=== PATIENT | female | born 1930 | race Caucasian/White ===

== ENCOUNTER → 2016-07-05 | Outpatient (CLI) | payer OTHER ==
[~2016-07-05] MED LIST: ACET1TAB84 PO; ADVIN25050 INH; ANT25 PO; CALCCHW57 PO; CHOL1TAB42 PO; CYCL0.05 OP; CYCL0.052 OPB; DICL1.3D21 TOP; FLUT0.15 NAE; FURO-85 PO; GABA1CAP PO; HYZ/10015 PO; KETO2SHA TOP; MAGN400T6 PO; MECL1TAB40 PO; MONT1TAB3 PO; NXM/40 PO; ONDA4TAB65 PO; POLYSOL4 OPB; PRAM1TAB6 PO; SERT1TAB72 PO; TRIA3AER NAE; TRIA55SP NAE; [UNRECOGNIZED DRUG - OTHER] NAE
[2016-07-05 16:41] LABS: BASO % 0.3 %; BASO ABS # 0.02 K/uL (0-0.2); COMPLETE YES; EOS % 1.8 %; HEMATOCRIT 36.4 % (37-47); IG% 0.7 %; LYMPH % 21.6 %; LYMPH ABS # 1.53 K/uL (1.2-3.4); MEAN CORPUSCULAR HGB CONC 31.9 g/dl (32-36); MEAN PLATELET VOLUME 11.4 fL (7.4-10.4); MONO % 5.9 %; NEUT % 69.7 %; PLATELET COUNT 166 K/uL (130-400); WHITE BLOOD COUNT 7.08 K/uL (4.8-10.8)
[2016-07-05 16:56] LABS: ALT/SGPT 18 U/L (12-78); AST/SGOT 15 U/L (15-37); BLOOD UREA NITROGEN 30 mg/dl (7-18); BUN/CREATININE RATIO 16.4 (10-20); CALCIUM 9.1 mg/dl (8.5-10.1); CARBON DIOXIDE 31 mmol/L (21-32); CHLORIDE 102 mmol/L (98-107); GLUCOSE 94 mg/dl (70-99); POTASSIUM 4.1 mmol/L (3.5-5.1); SODIUM 142 mmol/L (136-145)
[2016-07-05 17:03] LABS: ALB/GLOB RATIO 1.1 (0.9-2); ALKALINE PHOSPHATASE 95 U/L (45-117); C-REACTIVE PROTEIN 1.23 mg/dl (0-0.29); CHOLESTEROL 185 mg/dl (0-200); CHOLESTEROL/HDL RATIO 3.8; HDL CHOLESTEROL 49 mg/dl; LDL CHOLESTEROL CALCULATED 79 mg/dl; TRIGLYCERIDES 283 mg/dl (0-150); VERY LOW DENSITY LIPOPROT CALC 57 mg/dl
--- NOTE | 2016-07-09 13:03 | CODING QUERY MEDICAL NECESSITY ---
SUPPORTING DIAGNOSIS NEEDED Dr. George, A supporting diagnosis is required for the test/procedure performed on this patient in order for us to be reimbursed by the patient's insurance. Please provide a supporting diagnosis for the following test/procedure listed below next to the test name along with your signature. *If there is no additional diagnosis for this patient that would support the following test/procedure please document that below next to the test/procedure. Test(s)/Procedure(s) that require a supporting diagnosis: * ([id number]) B12 VITAMIN LEVEL DIAGNOSIS: DATE OF SERVICE: 07/05/16 Provider Signature: Date: Thank you [facility] Information Management Once completed, please kindly fax back to [phone] For questions please call [phone]
== END | disposition home or self-care (01) ==
LOC: C.LAB1850 15:18
PROVIDERS: ATTEND Internal Medicine
DX: R51 Headache (principal); I12.9 Hypertensive chronic kidney disease with stage 1 through stage 4 chronic kidney disease, or unspecified chronic kidney disease; N18.3 Chronic kidney disease, stage 3 (moderate); G62.9 Polyneuropathy, unspecified

== ENCOUNTER 2016-07-26 11:43 | Emergency (ER) | payer OTHER ==
[~2016-07-26 11:43] MED LIST changes: -ANT25 PO; -CYCL0.052 OPB; -FLUT0.15 NAE; -KETO2SHA TOP; -TRIA55SP NAE
[2016-07-26 11:54] VITALS: Ht 163.8 cm
[2016-07-26] MEDS ORDERED: SODIUM CHLORIDE 0.9% 1000ML 1,000 ML IV STA (13:09)
[2016-07-26] MEDS ORDERED: SODIUM CHLORIDE 0.9% 1000ML 250 ML IV STA (13:09)
[2016-07-26] MEDS ORDERED: MECLIZINE HCL 25 MG TAB PO STA (13:14)
[2016-07-26] MEDS ORDERED: CYCL0.052 OPB (13:42)
[2016-07-26] MEDS ORDERED: TRIA55SP NAE (13:42)
[2016-07-26 14:07] LABS: BASO % 0.2 %; BASO ABS # 0.02 K/uL (0-0.2); COMPLETE YES; EOS % 0.2 %; HEMATOCRIT 39.9 % (37-47); IG% 2.3 %; LYMPH % 11.9 %; LYMPH ABS # 1.42 K/uL (1.2-3.4); MEAN CELL VOLUME 91.3 fL (80-100); MEAN CORPUSCULAR HEMOGLOBIN 29.3 pg (25-34); MEAN CORPUSCULAR HGB CONC 32.1 g/dl (32-36); MEAN PLATELET VOLUME 11.3 fL (7.4-10.4); MONO % 3.1 %; NEUT % 82.3 %; PLATELET COUNT 194 K/uL (130-400); RED BLOOD COUNT 4.37 M/uL (4.2-5.4); WHITE BLOOD COUNT 11.94 K/uL (4.8-10.8)
--- NOTE | 2016-07-26 14:17 | DIAGNOSTIC IMAGING REPORT ---
CT OF THE HEAD WITHOUT CONTRAST CLINICAL HISTORY: Persistent frontal headache. COMPARISON STUDY: Head CT December 23, 2014. CT DOSE: 601.98 mGy.cm TECHNIQUE: Helical axial images of the head were obtained without IV contrast. Automated exposure control was utilized for the study. FINDINGS: No acute intracranial hemorrhage, midline shift or mass effect is present. Ventricular system is normal. Basilar cisterns are patent. There are no extra-axial collections. There are no findings to suggest acute dural sinus thrombosis or acute territorial infarct. White matter hypodensities are unchanged and suggest small vessel disease. There is no calvarial fracture. A small amount of fluid is noted within the left mastoid air cells. This is unchanged. There is minimal mucosal thickening of the sinuses. IMPRESSION: No acute intracranial findings. Electronically signed by: Chapin Rosales M.D. 07/26/2016 2:16 PM Dictated Date/Time: 07/26/2016 2:13 PM
[2016-07-26 14:20] LABS: ALT/SGPT 14 U/L (12-78); BLOOD UREA NITROGEN 37 mg/dl (7-18); BUN/CREATININE RATIO 21.6 (10-20); CALCIUM 9.6 mg/dl (8.5-10.1); CARBON DIOXIDE 30 mmol/L (21-32); CHLORIDE 103 mmol/L (98-107); GLUCOSE 113 mg/dl (70-99); POTASSIUM 4.5 mmol/L (3.5-5.1); SODIUM 143 mmol/L (136-145)
[2016-07-26 14:23] LABS: ALKALINE PHOSPHATASE 89 U/L (45-117); AST/SGOT 12 U/L (15-37)
[2016-07-26] MEDS ORDERED: ACETAMINOPHEN 325 MG TAB PO STA (14:51)
--- NOTE | 2016-07-26 16:25 | EMERGENCY ROOM VISIT NOTE ---
History Report prepared by Keri: Ksenia Ordonez Under the Supervision of: Dr. Lane Jenkins M.D. First contact with patient: 13:04 Chief Complaint: HEADACHE Stated Complaint: SEVERE RICHARDSON, NAUSEA History of Present Illness The patient is a 86 year old female who presents to the Emergency Room with complaints of a worsening intermittent headache that started about a couple months ago. The patient took Meclizine this morning, but it did not offer her much relief. She adds that she typically needs to take two in order to get any relief. The patient takes Tylenol and occasionally Excedrin, but they have not been relieving her headache. She is unsure of if anything makes the headache better or worse. The headache is sometimes worse with movement. She is also experiencing dizziness, like the room is spinning, along with nausea. The patient was supposed to see Dr. Gallo - Neurologist today, but they told her to come into the ED to get a CT scan done prior to her appointment this afternoon. The patient has received blood work for the headaches, but she has never had any imaging done of her head. She denies any recent falls along with hitting her head recently. The patient denies fevers and any problems speaking or swallowing. She is also experiencing pain in the back of her eyes and generalized weakness with the headache. The patient saw her eye doctor and they were suspicious of cluster headaches. The patient experienced headaches when she was younger. 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 Source of History: patient, spouse/significant other Onset: a couple months ago Position: head Quality: other (headache) Timing: intermittent, worsening Modifying Factors (Worsening): movement (sometimes) Modifying Factors (Relieving): other (none) Associated Symptoms: + nausea, + weakness (generalized), No fevers Note: dizziness, no problems speaking or swallowing Review of Systems See HPI for pertinent positives & negatives. A total of 10 systems reviewed and were otherwise negative. Past Medical & Surgical Medical Problems: (1) Appendectomy (2) Cataract (3) Depression (4) Dizziness (5) History of - hypertension (6) Hysterectomy (7) Osteoporosis (8) Vertigo Old medical records were reviewed. Nurse's notes were reviewed and I agree with. Family History No pertinent family history Social History Smoking Status: Never Smoker Drug Use: none Marital Status: Housing Status: lives alone Occupation Status: retired Current/Historical Medications Scheduled Acetaminophen (Tylenol Arthritis Ext Rel), 650 MG PO QID Calcium Carbonate-Vitamin D W/ (Calcium 1200), 1 DOSE PO DAILY Cholecalciferol (Vitamin D), 5,000 UNITS PO DAILY Cyclosporine (Ophth) (Restasis), 1 DROP OP BID Diclofenac Epolamine (Flector), 1 PATCH TOP Q12H Esomeprazole Magnesium (Nexium), 40 MG PO DAILY Furosemide (Lasix), 20 MG PO DAILY Gabapentin (Neurontin), 200 MG PO QAM Gabapentin (Neurontin), 300 MG PO QPM Hctz/Losartan (Hyzaar 25MG/100MG), 1 TAB PO QAM Magnesium Oxide (Mag-Ox), 400 MG PO DAILY Montelukast Sodium (Singulair), 10 MG PO DAILY Pramipexole Dihydrochloride (Pramipexole Dihydrochlori), 2 TAB PO HS Sertraline Hcl (Zoloft), 25 MG PO DAILY [4-N-1], 2 SPRAYS MARTY prn Scheduled PRN Fluticasone Prop/Salmeterol (Advair Diskus 250-50 Mcg/Dose), 1 PUFF INH BID PRN for SOB/Wheezing Meclizine Hcl (Meclizine Hcl), 25 MG PO TID PRN for Dizziness or Vertigo Ondansetron Hcl (Zofran), 1-2 TAB PO Q6 PRN for Nausea or Vomiting Polyethylene Glycol-Propylene (Systane), 1 DROP OPB BID PRN for PRN Triamcinolone Acetonide (Nasal (Cvs Nasal Allergy Capulin), 2 SPRAYS MARTY DAILY PRN for Nasal Congestion Allergies Coded Allergies: Levofloxacin (Verified Allergy, Intermediate, red painful skin,itching, burning, 07/26/16) Amoxicillin (Verified Allergy, Unknown, G I UPSET, 07/26/16) Aspirin (Verified Allergy, Unknown, UNKNOWN, 07/26/16) Cefdinir (Verified Allergy, Unknown, UNKNOWN, 07/26/16) Cephalosporins (Verified Allergy, Unknown, G I UPSET, 07/26/16) Iodine (Verified Allergy, Unknown, RASH, 07/26/16) Penicillins (Verified Allergy, Unknown, 07/26/16) Sulfa Drugs (Verified Allergy, Unknown, G I UPSET, 07/26/16) Venlafaxine (Verified Allergy, Unknown, UNKNOWN, 07/26/16) Codeine (Verified Adverse Reaction, Mild, GI UPSET, 07/26/16) Tapentadol (Verified Adverse Reaction, Unknown, "drunk as a hoot owl", ) pt/gmg Physical Exam Vital Signs Date Time Temp Pulse Resp B/P Pulse Ox O2 Delivery O2 Flow Rate FiO2 07/26/16 17:12 36.9 77 18 170/80 98 07/26/16 17:11 77 18 170/80 98 Room Air 07/26/16 13:58 78 175/89 98 Room Air 07/26/16 13:56 86 175/89 07/26/16 11:54 36.9 87 18 187/77 97 Room Air Physical Exam General: Well developed well nourished non-ill appearing older female in no acute distress, breathing comfortably on room air. Normal speech HEENT: Normal cephalic atraumatic. Mildly tender in temples bilaterally. Pupils are equal round and reactive to light. Extraocular movements are intact. Oropharynx is pink with moist mucous membranes. No swelling of the mouth lips or tongue. Neck: Supple with a midline trachea. No meningeal signs or stiffness, no JVD or bruits. No Stridor. Chest: Clear to auscultation bilaterally. No wheezes or rhonchi. No increased work of breathing. Heart: regular rate and rhythm. Abdomen: Soft nontender, nondistended without rebound guarding or rigidity. Extremities: No cyanosis clubbing or edema. No calf tenderness or assymetry Spine/Back. Non tender to palpation. No CVA tenderness Skin: Good turgor without rashes. Neurologic exam: Cranial nerves two through 12 are intact. Motor and sensation are intact and symmetrical throughout. No tremor. [id number] intact. Medical Decision & Procedures ER Provider Diagnostic Interpretation: CT results as stated below per my review and radiologist interpretation: CT OF THE HEAD WITHOUT CONTRAST IMPRESSION: No acute intracranial findings. Electronically signed by: Chapin Rosales M.D. 07/26/2016 2:16 PM Dictated Date/Time: 07/26/2016 2:13 PM Laboratory Results 07/26/16 13:48 Red Blood Count 4.37, Mean Corpuscular Volume 91.3, Mean Corpuscular Hemoglobin 29.3, Mean Corpuscular Hemoglobin Concent 32.1, Mean Platelet Volume 11.3, Neutrophils (%) (Auto) 82.3, Lymphocytes (%) (Auto) 11.9, Monocytes (%) (Auto) 3.1, Eosinophils (%) (Auto) 0.2, Basophils (%) (Auto) 0.2, Neutrophils # (Auto) 9.84, Lymphocytes # (Auto) 1.42, Monocytes # (Auto) 0.37, Eosinophils # (Auto) 0.02, Basophils # (Auto) 0.02 07/26/16 13:48 Test 07/26/16 13:48 07/26/16 14:02 White Blood Count 11.94 K/uL (4.8-10.8) Red Blood Count 4.37 M/uL (4.2-5.4) Hemoglobin 12.8 g/dL (12.0-16.0) Hematocrit 39.9 % (37-47) Mean Corpuscular Volume 91.3 fL (80-100) Mean Corpuscular Hemoglobin 29.3 pg (25-34) Mean Corpuscular Hemoglobin Concent 32.1 g/dl (32-36) Platelet Count 194 K/uL (130-400) Mean Platelet Volume 11.3 fL (7.4-10.4) Neutrophils (%) (Auto) 82.3 % Lymphocytes (%) (Auto) 11.9 % Monocytes (%) (Auto) 3.1 % Eosinophils (%) (Auto) 0.2 % Basophils (%) (Auto) 0.2 % Neutrophils # (Auto) 9.84 K/uL (1.4-6.5) Lymphocytes # (Auto) 1.42 K/uL (1.2-3.4) Monocytes # (Auto) 0.37 K/uL (0.11-0.59) Eosinophils # (Auto) 0.02 K/uL (0-0.5) Basophils # (Auto) 0.02 K/uL (0-0.2) RDW Standard Deviation 47.6 fL (36.4-46.3) RDW Coefficient of Variation 14.2 % (11.5-14.5) Immature Granulocyte % (Auto) 2.3 % Immature Granulocyte # (Auto) 0.27 K/uL (0.00-0.02) Erythrocyte Sedimentation Rate 34 mm/hr (0-21) Anion Gap 10.0 mmol/L (3-11) Estimated GFR () 31.1 Estimated GFR (Non- 26.8 BUN/Creatinine Ratio 21.6 (10-20) Calcium Level 9.6 mg/dl (8.5-10.1) Total Bilirubin 0.3 mg/dl (0.2-1) Direct Bilirubin < 0.1 mg/dl (0-0.2) Aspartate Amino Transf (AST/SGOT) 12 U/L (15-37) Alanine Aminotransferase (ALT/SGPT) 14 U/L (12-78) Alkaline Phosphatase 89 U/L (45-117) Total Protein 7.4 gm/dl (6.4-8.2) Albumin 3.8 gm/dl (3.4-5.0) Lipase 84 U/L (73-393) Bedside Troponin I 0.010 ng/ml (0-0.045) Laboratory studies as stated above per my review. Medications Administered Medications (Trade) Dose Ordered Sig/Clinton Route Start Time Stop Time Status Last Admin Dose Admin Sodium Chloride 250 ml @ 999 mls/hr Q16M STAT IV 07/26/16 13:09 07/26/16 13:24 DC 07/26/16 14:27 999 MLS/HR Sodium Chloride (Nss 1000ml) 1,000 ml @ 100 mls/hr Q10H STAT IV 07/26/16 13:09 07/26/16 17:30 DC 07/26/16 15:01 100 MLS/HR Meclizine HCl (Antivert Tab) 25 mg NOW STAT PO 07/26/16 13:14 07/26/16 13:15 DC 07/26/16 13:54 25 MG Acetaminophen (Tylenol Tab) 650 mg NOW STAT PO 07/26/16 14:51 07/26/16 14:52 DC 07/26/16 15:01 650 MG ECG Indication: weakness Rate (beats per minute): 80 Rhythm: normal sinus Findings: nonspecific-ST abn, no acute ischemic change Comparison ECG Date: 01/21/2016 Change: no significant change ED Course 1306: Past medical records reviewed. The patient was evaluated in room B10, and a complete history and physical examination were performed. 1309: Ordered Sodium Chloride 1000 ml @ 100 mls/hr IV, Sodium Chloride 250 ml @ 999 mls/hr IV 1314: Ordered Meclizine HCl 25 mg PO 1357: The patient is going to CT now. 1450: I reassessed the patient. She is resting comfortably. We are waiting for Dr. Gallo to call back. 1451: Ordered Tylenol Tab 650 mg PO 1454: I discussed the patient's case with Dr. Gallo - Neurology. He agreed with the treatment plan and said that they can't see her in the office today. He is going to try to get her into the office this week. 1558: Upon reevaluation, the patient is doing well. I discussed the results and treatment plan with her. She verbalized agreement of the treatment plan. The patient was discharged home. Medical Decision Differentials include, but are not limited to; vertigo, intracranial process, migraine, temporal arteritis, infection, electrolyte or metabolic abnormality. This patient comes in as described above. She was placed in room B 10. She has had headaches for several months now and and it seems even longer than that. It got a little bit worse today, she's had some dizziness with it she's had no fever chills. She has no strokelike symptoms -no difficulty speaking or swallowing or numbness or weakness. She had an appointment with Dr. Gallo who recommended she come to the ER because she has not had a neuro imaging. She does have multiple allergies and sensitivities to medication .she can take meclizine which we gave her as well as NSAIDs and she seems comfortable.. She does not appear to any distress CAT scan of her head is unremarkable she was mild to moderately hypertensive but I do not gets acutely causing her symptoms. She has nothing to suggest infection or acute electrode or metabolic abnormalities. Her sedimentation rate is mildly elevated, I did discuss with Dr. Gallo and she apparently tends to run chronically mildly elevated. She may ultimately need this further looked into although I do not think temporal arteritis is likely at this point. She's had a recent eye exam and her tipple supervisor who did not think there is an eye cause for this. Dr. Gallo's office and try to get her rescheduled this week. The patient can continue her meds and return if she has fever chills, numbness weakness ,worsened symptoms, any new problems or concerns. She was happy with plan and discharged home with her son driving Consults Time Called: 1450 Consulting Physician: Dr. Gallo - Neurology Returned Call: [phone] I discussed the patient's case with Dr. Gallo - Neurology. He agreed with the treatment plan and said that they can't see her in the office today. He is going to try to get her into the office this week. Impression Primary Impression: Headache Scribe Attestation The scribe's documentation has been prepared under my direction and personally reviewed by me in its entirety. I confirm that the note above accurately reflects all work, treatment, procedures, and medical decision making performed by me. Departure Information Dispostion Home / Self-Care Referrals No Doctor, Assigned (PCP) Forms HOME CARE DOCUMENTATION FORM, IMPORTANT VISIT INFORMATION Patient Instructions My [facility] Additional Instructions Rest. Drink plenty of fluids. Continue current medications for headache Follow-up with Dr. Gallo this week for recheck. Return if: Increasing pain, worsening symptoms, fever chills, any new problems or concerns. Problem Qualifiers Primary Impression: Headache Headache type: unspecified Headache chronicity pattern: unspecified pattern Intractability: not intractable Qualified Codes: R51 - Headache
[2016-07-26 17:12] VITALS: BP 170/80; PULSE 77; TEMP 36.9; O2SAT 98
== END 2016-07-26 17:13 | disposition home or self-care (01) ==
LOC: C.EDB 11:44
DX: R51 Headache (principal); F32.9 Major depressive disorder, single episode, unspecified; M81.0 Age-related osteoporosis without current pathological fracture; I10 Essential (primary) hypertension; Z79.899 Other long term (current) drug therapy

== ENCOUNTER → 2016-09-23 | Outpatient (CLI) | payer OTHER ==
[~2016-09-23] MED LIST changes: +ANT25 PO; -CYCL0.05 OP; +CYCL0.052 OPB; +DOXY100T17 PEG; +DULO-76 PO; +FLCP TOP; +FLUT0.15 NAE; +KETO2SHA TOP; +LIFI5DRO OPB; +NRN/300 PO; +SNG10 PO; -TRIA3AER NAE; +TRIA55SP NAE; +VERA240C2 PO; +VNTHFA/IN INH
[2016-09-23 10:36] LABS: URINE APPEARANCE CLEAR (CLEAR); URINE BILIRUBIN NEG (NEG); URINE COLOR YELLOW; URINE NITRITE NEG (NEG); URINE PH 6.5 (4.5-7.5); URINE SPECIFIC GRAVITY 1.009 (1.000-1.030); UROBILINOGEN NEG (NEG)
[2016-09-23 10:46] LABS: MANUAL MICROSCOPIC REQUIRED? NO; REVIEW REQ? NO
== END | disposition home or self-care (01) ==
LOC: C.LAB1850 08:57
PROVIDERS: ATTEND Internal Medicine
DX: R39.9 Unspecified symptoms and signs involving the genitourinary system (principal)

== ENCOUNTER → 2016-10-19 | Outpatient (CLI) | payer OTHER ==
--- NOTE | 2016-10-19 16:04 | MAMMOGRAPHY REPORT ---
BILATERAL DIGITAL SCREENING MAMMOGRAM TOMOSYNTHESIS WITH CAD: 10/19/2016 CLINICAL HISTORY: Asymptomatic. Personal history of breast cancer. TECHNIQUE: Breast tomosynthesis in addition to standard 2D mammography was performed. Current study was also evaluated with a Computer Aided Detection (CAD) system. COMPARISON: Comparison is made to exams dated: 04/12/2016 mammogram, 10/08/2015 mammogram, 06/26/2014 mammogram, 06/14/2013 mammogram, 06/12/2012 mammogram, and 06/02/2011 mammogram - [facility]. BREAST COMPOSITION: The tissue of both breasts is almost entirely fatty. FINDINGS: There are stable post-therapeutic changes within the right breast. A few benign-appearing calcifications in the right breast. Stable metallic biopsy marker in the left breast. Mild vascul ar calcification bilaterally. No new suspicious mass, architectural distortion or cluster of microc alcifications is seen. IMPRESSION: ACR BI-RADS CATEGORY 1: NEGATIVE There is no mammographic evidence of malignancy. A 1 year screening mammogram is recommended. The p atient will receive written notification of the results. Approximately 10% of breast cancers are not detected with mammography. A negative mammographic repor t should not delay biopsy if a clinically suggestive mass is present. Kindra Brown M.D. ay/:10/19/2016 15:17:59 Body Technician: Laura HUI)(M), [facility] letter sent: Normal 1/2 BI-RADS Code: ACR BI-RADS Category 1: Negative
== END | disposition home or self-care (01) ==
LOC: C.MAMM 12:11
PROVIDERS: ATTEND Internal Medicine Hematology & Oncology
DX: Z12.31 Encounter for screening mammogram for malignant neoplasm of breast (principal)

== ENCOUNTER 2016-11-04 12:22 | Emergency (ER) | payer OTHER ==
[~2016-11-04] VITALS: Ht 162.6 cm; Wt 96.0 kg
[~2016-11-04 12:22] MED LIST changes: -ANT25 PO; -DOXY100T17 PEG; -DULO-76 PO; -FLCP TOP; -FLUT0.15 NAE; -KETO2SHA TOP; -LIFI5DRO OPB; -NRN/300 PO; -SNG10 PO; -VERA240C2 PO; -VNTHFA/IN INH
[2016-11-04 12:30] VITALS: TEMP 36.6; Ht 162.6 cm; Wt 96.0 kg
[2016-11-04] MEDS ORDERED: ONDANSETRON INJ 2 MG/ML 2 ML VIAL IV STA (13:08)
[2016-11-04] MEDS ORDERED: MoRPHine SULFATE 4 MG/ML 1 ML CARP\\VIAL IV STA (13:08)
[2016-11-04] MEDS ORDERED: ANT25 PO (13:18)
[2016-11-04] MEDS ORDERED: FLUT0.15 NAE (13:18)
[2016-11-04] MEDS ORDERED: KETO2SHA TOP (13:18)
[2016-11-04 13:55] LABS: BASO % 0.1 %; BASO ABS # 0.01 K/uL (0-0.2); COMPLETE YES; EOS % 1.4 %; HEMATOCRIT 36.8 % (37-47); IG% 0.5 %; LYMPH % 16.9 %; LYMPH ABS # 1.31 K/uL (1.2-3.4); MEAN CELL VOLUME 88.9 fL (80-100); MEAN CORPUSCULAR HEMOGLOBIN 28.7 pg (25-34); MEAN CORPUSCULAR HGB CONC 32.3 g/dl (32-36); MEAN PLATELET VOLUME 11.1 fL (7.4-10.4); NEUT % 76.1 %; PLATELET COUNT 189 K/uL (130-400); RED BLOOD COUNT 4.14 M/uL (4.2-5.4); WHITE BLOOD COUNT 7.73 K/uL (4.8-10.8)
--- NOTE | 2016-11-04 14:09 | DIAGNOSTIC IMAGING REPORT ---
SINGLE VIEW CHEST CLINICAL HISTORY: Lower extremity edema. FINDINGS: An AP, portable, upright chest radiograph is compared to study dated 01/21/2016 and correlated with chest CT dated 09/03/2015. The examination is degraded by portable technique and apical lordotic positioning. The heart is mildly enlarged. The pulmonary vasculature is noncongested. Chronic interstitial thickening is unchanged and there is mild elevation of the right hemidiaphragm. No airspace consolidation, large pleural effusion, or pneumothorax is seen. The skeletal structures are osteopenic. The bony thorax is grossly intact. Surgical clips are noted in the right breast. IMPRESSION: Mild cardiac enlargement with no acute cardiopulmonary abnormality. Electronically signed by: Porfirio Calderón M.D. 11/04/2016 2:08 PM Dictated Date/Time: 11/04/2016 2:07 PM
[2016-11-04 14:17] LABS: BUN/CREATININE RATIO 14.9 (10-20); CALCIUM 8.8 mg/dl (8.5-10.1); CREATININE 1.9 mg/dl (0.60-1.20)
--- NOTE | 2016-11-04 14:23 | DIAGNOSTIC IMAGING REPORT ---
FLUOROSCOPIC IMAGES OF THE LUMBAR SPINE CLINICAL HISTORY: Lower back pain radiating into the lower extremities. COMPARISON: Lumbar spine radiographs August 07, 2013. FLUOROSCOPY TIME: FINDINGS: Mild curvature of the lumbar spine is noted with slight retrolisthesis of L3 on L4 and anterolisthesis of L5 on S1. This is unchanged since exam of August 07, 2013. There is moderate multilevel degenerative disc disease and facet arthrosis. No fracture or suspicious lesion is identified by radiography. IMPRESSION: 1. No acute lumbar spine fracture or subluxation. 2. Moderate multilevel degenerative disc disease and facet arthrosis of the lumbar spine. 3. No change in mild retrolisthesis of L3 on L4 and anterolisthesis of L5 on S1. Electronically signed by: Chapin Rosales M.D. 11/04/2016 2:22 PM Dictated Date/Time: 11/04/2016 2:20 PM
--- NOTE | 2016-11-04 14:52 | DIAGNOSTIC IMAGING REPORT ---
ULTRASOUND BILATERAL LOWER EXTREMITY VENOUS CLINICAL HISTORY: Leg swelling. COMPARISON STUDY: Bilateral lower extremity venous ultrasound dated 01/21/2016. TECHNIQUE: Real-time, grayscale, and color Doppler sonography of the deep veins of the right and left lower extremity was performed from the inguinal crease to the calf. Compression and augmentation were utilized. FINDINGS: There is no sonographic evidence of deep venous thrombosis identified in the right or left lower extremity. The common femoral, superficial femoral, and popliteal veins are patent and normally compressible bilaterally. The greater saphenous vein and the profunda femoris vein at the junction with the common femoral vein are clear in both legs. The visualized calf veins are patent bilaterally. IMPRESSION: There is no sonographic evidence of deep venous thrombosis identified in the right or left lower extremity. Electronically signed by: Porfirio Calderón M.D. 11/04/2016 2:51 PM Dictated Date/Time: 11/04/2016 2:50 PM
[2016-11-04 15:10] VITALS: BP 152/82; PULSE 77; O2SAT 96
[2016-11-04] MEDS ORDERED: POTASSIUM CHLORIDE 10 MEQ TABCR PO STA (15:18)
--- NOTE | 2016-11-04 17:35 | EMERGENCY ROOM VISIT NOTE ---
History Report prepared by Keri: Rula Botello Under the Supervision of: Dr. Delmar Toribio D.O. First contact with patient: 12:42 Chief Complaint: BACK PAIN Stated Complaint: BACK AND LEG PAIN History of Present Illness The patient is a 86 year old female who presents to the Emergency Room with complaints of worsening lower back pain and left leg pain beginning [employer]. The patient has chronic swelling in her legs. 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 The nurse noticed that the right leg appeared to be more swollen today. She was concerned that the patient might have a blood clot in the right lower leg. The patient has a history of spinal stenosis and has chronic pain in her back that has been going on per years, per son and left lower extremity. The patient states that today her back pain is worse than usual. She also reports pain in her left hip and leg, as well as pain in her right shoulder. She has been taking Cipro for the past 3 days for a UTI. The patient states that she is still experiencing some urinary symptoms, but they are improving since starting the antibiotic. The patient denies abdominal pain, nausea, vomiting, and diarrhea. She has been taking Tylenol for her pain. She called her PCP today with her symptoms and they advised her to come to the ED for further evaluation. The patient rates her current pain as an 8/10 in severity. Source of History: patient, family (son) Onset: [employer] Position: back, leg (right) Symptom Intensity: 8/10 Timing: worsening Modifying Factors (Relieving): tylenol Associated Symptoms: + urinary symptoms, No abdominal pain, No diarrhea, No nausea, No vomiting Review of Systems See HPI for pertinent positives & negatives. A total of 10 systems reviewed and were otherwise negative. Past Medical & Surgical Medical Problems: (1) Appendectomy (2) Cataract (3) Depression (4) Dizziness (5) History of - hypertension (6) Hysterectomy (7) Osteoporosis (8) Vertigo Family History No pertinent family history Social History Smoking Status: Never Smoker Drug Use: none Marital Status: Housing Status: lives alone Occupation Status: retired Current/Historical Medications Scheduled Acetaminophen (Tylenol Arthritis Ext Rel), 650 MG PO QID Cholecalciferol (Vitamin D), 5,000 UNITS PO DAILY Cyclosporine (Ophth) (Restasis), 1 DROP OPB BID Diclofenac Epolamine (Flector), 1 PATCH TOP Q12H Esomeprazole Magnesium (Nexium), 40 MG PO DAILY Fluticasone Propionate (Nasal) (Flonase Allergy Relief), 2 SPRAYS MARTY DAILY Furosemide (Lasix), 20 MG PO DAILY Gabapentin (Neurontin), 200 MG PO QAM Gabapentin (Neurontin), 300 MG PO QPM Hctz/Losartan (Hyzaar 25MG/100MG), 1 TAB PO QAM Ketoconazole (Topical) (Ketoconazole), 1 APPLN TOP UD Montelukast Sodium (Singulair), 10 MG PO DAILY Pramipexole Dihydrochloride (Pramipexole Dihydrochlori), 2 TAB PO HS Sertraline Hcl (Zoloft), 25 MG PO DAILY Scheduled PRN Fluticasone Prop/Salmeterol (Advair Diskus 250-50 Mcg/Dose), 1 PUFF INH BID PRN for SOB/Wheezing Meclizine HCl (Meclizine HCl), 2 MG PO TID PRN for Dizziness or Vertigo Polyethylene Glycol-Propylene (Systane), 1 DROP OPB BID PRN for PRN Allergies Coded Allergies: Levofloxacin (Verified Allergy, Intermediate, red painful skin,itching, burning, 07/26/16) Amoxicillin (Verified Allergy, Unknown, G I UPSET, 07/26/16) Aspirin (Verified Allergy, Unknown, UNKNOWN, 07/26/16) Cefdinir (Verified Allergy, Unknown, UNKNOWN, 07/26/16) Cephalosporins (Verified Allergy, Unknown, G I UPSET, 07/26/16) Iodine (Verified Allergy, Unknown, RASH, 07/26/16) Penicillins (Verified Allergy, Unknown, 07/26/16) Sulfa Drugs (Verified Allergy, Unknown, G I UPSET, 07/26/16) Venlafaxine (Verified Allergy, Unknown, UNKNOWN, 07/26/16) Codeine (Verified Adverse Reaction, Mild, GI UPSET, 07/26/16) Tapentadol (Verified Adverse Reaction, Unknown, "drunk as a hoot owl", ) pt/gmg Physical Exam Vital Signs Date Time Temp Pulse Resp B/P Pulse Ox O2 Delivery O2 Flow Rate FiO2 11/04/16 15:10 77 18 152/82 96 Room Air 11/04/16 13:25 74 11/04/16 12:30 36.6 93 20 135/63 91 Room Air Physical Exam GENERAL: alert, sitting up in bed chronically ill appearing, well nourished, no distress, non-toxic EYE EXAM: normal conjunctiva OROPHARYNX: no exudate, no erythema, lips, buccal mucosa, and tongue normal and mucous membranes are moist NECK: supple, no nuchal rigidity, no adenopathy, non-tender LUNGS: Clear to auscultation. Normal chest wall mechanics HEART: no murmurs, S1 normal and S2 normal ABDOMEN: abdomen soft, non-tender, normo-active bowel sounds, no masses, no rebound or guarding. BACK: Back is symmetrical on inspection and there is no deformity, acute reproducible tenderness in the lower lumbar spine and left gluteus. SKIN: no rashes and no bruising UPPER EXTREMITIES: Minimal pain with abduction of right shoulder greater than 90 degrees, FROM intact, no focal deficits. LOWER EXTREMITIES: Flexion/extension at the hips, knees, ankles, and EHL 5/5 bilaterally with mild pain on the left side. DP 2/4, gross sensation intact. Faint pitting edema bilaterally, calves equal bilaterally. NEURO EXAM: Normal sensorium, cranial nerves II-XII grossly intact, normal speech. Medical Decision & Procedures ER Provider Diagnostic Interpretation: Radiology results as stated below per my review and the radiologist's interpretation: ULTRASOUND BILATERAL LOWER EXTREMITY VENOUS CLINICAL HISTORY: Leg swelling. COMPARISON STUDY: Bilateral lower extremity venous ultrasound dated 01/21/2016. TECHNIQUE: Real-time, grayscale, and color Doppler sonography of the deep veins of the right and left lower extremity was performed from the inguinal crease to the calf. Compression and augmentation were utilized. FINDINGS: There is no sonographic evidence of deep venous thrombosis identified in the right or left lower extremity. The common femoral, superficial femoral, and popliteal veins are patent and normally compressible bilaterally. The greater saphenous vein and the profunda femoris vein at the junction with the common femoral vein are clear in both legs. The visualized calf veins are patent bilaterally. IMPRESSION: There is no sonographic evidence of deep venous thrombosis identified in the right or left lower extremity. Electronically signed by: Porfirio Calderón M.D. 11/04/2016 2:51 PM Dictated Date/Time: 11/04/2016 2:50 PM FLUOROSCOPIC IMAGES OF THE LUMBAR SPINE CLINICAL HISTORY: Lower back pain radiating into the lower extremities. COMPARISON: Lumbar spine radiographs August 07, 2013. FLUOROSCOPY TIME: FINDINGS: Mild curvature of the lumbar spine is noted with slight retrolisthesis of L3 on L4 and anterolisthesis of L5 on S1. This is unchanged since exam of August 07, 2013. There is moderate multilevel degenerative disc disease and facet arthrosis. No fracture or suspicious lesion is identified by radiography. IMPRESSION: 1. No acute lumbar spine fracture or subluxation. 2. Moderate multilevel degenerative disc disease and facet arthrosis of the lumbar spine. 3. No change in mild retrolisthesis of L3 on L4 and anterolisthesis of L5 on S1. Electronically signed by: Chapin Rosales M.D. 11/04/2016 2:22 PM Dictated Date/Time: 11/04/2016 2:20 PM SINGLE VIEW CHEST CLINICAL HISTORY: Lower extremity edema. FINDINGS: An AP, portable, upright chest radiograph is compared to study dated 01/21/2016 and correlated with chest CT dated 09/03/2015. The examination is degraded by portable technique and apical lordotic positioning. The heart is mildly enlarged. The pulmonary vasculature is noncongested. Chronic interstitial thickening is unchanged and there is mild elevation of the right hemidiaphragm. No airspace consolidation, large pleural effusion, or pneumothorax is seen. The skeletal structures are osteopenic. The bony thorax is grossly intact. Surgical clips are noted in the right breast. IMPRESSION: Mild cardiac enlargement with no acute cardiopulmonary abnormality. Electronically signed by: Porfirio Calderón M.D. 11/04/2016 2:08 PM Dictated Date/Time: 11/04/2016 2:07 PM Laboratory Results 11/04/16 13:30 Red Blood Count 4.14, Mean Corpuscular Volume 88.9, Mean Corpuscular Hemoglobin 28.7, Mean Corpuscular Hemoglobin Concent 32.3, Mean Platelet Volume 11.1, Neutrophils (%) (Auto) 76.1, Lymphocytes (%) (Auto) 16.9, Monocytes (%) (Auto) 5.0, Eosinophils (%) (Auto) 1.4, Basophils (%) (Auto) 0.1, Neutrophils # (Auto) 5.87, Lymphocytes # (Auto) 1.31, Monocytes # (Auto) 0.39, Eosinophils # (Auto) 0.11, Basophils # (Auto) 0.01 11/04/16 13:30 Test 11/04/16 13:30 White Blood Count 7.73 K/uL (4.8-10.8) Red Blood Count 4.14 M/uL (4.2-5.4) Hemoglobin 11.9 g/dL (12.0-16.0) Hematocrit 36.8 % (37-47) Mean Corpuscular Volume 88.9 fL (80-100) Mean Corpuscular Hemoglobin 28.7 pg (25-34) Mean Corpuscular Hemoglobin Concent 32.3 g/dl (32-36) Platelet Count 189 K/uL (130-400) Mean Platelet Volume 11.1 fL (7.4-10.4) Neutrophils (%) (Auto) 76.1 % Lymphocytes (%) (Auto) 16.9 % Monocytes (%) (Auto) 5.0 % Eosinophils (%) (Auto) 1.4 % Basophils (%) (Auto) 0.1 % Neutrophils # (Auto) 5.87 K/uL (1.4-6.5) Lymphocytes # (Auto) 1.31 K/uL (1.2-3.4) Monocytes # (Auto) 0.39 K/uL (0.11-0.59) Eosinophils # (Auto) 0.11 K/uL (0-0.5) Basophils # (Auto) 0.01 K/uL (0-0.2) RDW Standard Deviation 47.6 fL (36.4-46.3) RDW Coefficient of Variation 14.6 % (11.5-14.5) Immature Granulocyte % (Auto) 0.5 % Immature Granulocyte # (Auto) 0.04 K/uL (0.00-0.02) Anion Gap 7.0 mmol/L (3-11) Est Creatinine Clear Calc Drug Dose 23.9 ml/min Estimated GFR () 27.2 Estimated GFR (Non- 23.5 BUN/Creatinine Ratio 14.9 (10-20) Calcium Level 8.8 mg/dl (8.5-10.1) Total Bilirubin 0.3 mg/dl (0.2-1) Direct Bilirubin 0.1 mg/dl (0-0.2) Aspartate Amino Transf (AST/SGOT) 13 U/L (15-37) Alanine Aminotransferase (ALT/SGPT) 16 U/L (12-78) Alkaline Phosphatase 102 U/L (45-117) Pro-B-Type Natriuretic Peptide 143 pg/ml (0-1800) Total Protein 7.4 gm/dl (6.4-8.2) Albumin 3.8 gm/dl (3.4-5.0) Laboratory results per my review. Medications Administered Medications (Trade) Dose Ordered Sig/Clinton Route Start Time Stop Time Status Last Admin Dose Admin Potassium Chloride (Klor-Con M10) 40 meq NOW STAT PO 11/04/16 15:18 11/04/16 15:19 DC 11/04/16 15:28 40 MEQ ECG Indication: back/shoulder pain Rate (beats per minute): 73 Rhythm: normal sinus Findings: no ectopy, other (normal axis; poor baseline in inferior leads) Comparison ECG Date: 07/26/16 Change: no significant change ED Course ED COURSE: Vital signs were reviewed and showed normal vitals. The patients medical record was reviewed The above diagnostic studies were performed and reviewed. ED treatments and interventions as stated above. 1242: The patient was evaluated in room C11B. A complete history and physical examination was performed. 1308: Morphine sulfate 4 mg IV - pt refused, Zofran 4 mg IV - pt refused 1518: Klor-Con M10 40 meq PO 1519: Upon reevaluation, the patient is resting comfortably. I discussed my findings with the patient and she understands and agrees with the treatment plan. She declined any Oxy IR and states that her Ultram works well, it just makes her tired. Based on the patients age, coexisting illnesses, exam and lab findings the decision to treat as an outpatient was made. The patient remained stable while under my care. The patient appeared well at the time of discharge. Medical Decision Differential diagnoses includes but is not limited to lumbar radiculopathy, muscle strain, facture, cauda equina, mass, and disc herniation. Patient is an 86-year-old female who presents the ER for swelling in the right lower extremity along with pain in her left back radiating down her left leg which has been present for over 7 years. Pain is not significantly worsened off of her baseline. She is able to still able to walk with her walker which she has been using since 2009. No signs of cauda equina. No numbness in her groin. Duplex of the lower extremity showed no DVTs. CBC was unremarkable. BMP shows a creatinine 1.8 which is slightly increased from baseline of 1.7- 1.8. Potassium was repleted which was at 3.0 which I favor secondary to her Lasix. Patient declined any pain medications as she notes she takes her tramadol at home she has significant improvement but does make her feel a little loopy. Patient was discharged follow-up with her primary care doctor. Discussed with Pt concerning signs and symptoms to watch out for. Pt was instructed to follow up with their PCP and discussed with the patient their option to return to the ED at anytime for persistent or worsening symptoms. The appropriate anticipatory guidance and out-patient management, including indications for return to the emergency department, were explained at length to the patient and understood. Impression Primary Impression: Back pain Additional Impressions: Hypokalemia CKD (chronic kidney disease) Scribe Attestation The scribe's documentation has been prepared under my direction and personally reviewed by me in its entirety. I confirm that the note above accurately reflects all work, treatment, procedures, and medical decision making performed by me. Departure Information Dispostion Home / Self-Care Referrals RV. Marino MD (PCP) Forms HOME CARE DOCUMENTATION FORM, IMPORTANT VISIT INFORMATION Patient Instructions Back Pain - [facility], [facility] Additional Instructions Please follow up with your primary care doctor with in the next 24 hours. Any worsening of your symptoms, please return to the ED immediately. This includes fevers greater than 100.4, worsening back pain, numbness in your groin, numbness or weakness in your legs, inability to ambulate, or any other concerning signs or symptoms from your standpoint. Problem Qualifiers Primary Impression: Back pain Back pain location: low back pain Chronicity: chronic Back pain laterality : unspecified Sciatica presence: unspecified whether sciatica present Qualified Codes: M54.5 - Low back pain; G89.29 - Other chronic pain Additional Impressions: CKD (chronic kidney disease) Chronic kidney disease stage: unspecified stage Qualified Codes: N18.9 - Chronic kidney disease, unspecified
== END 2016-11-04 15:38 | disposition home or self-care (01) ==
LOC: C.EDB 12:28 → C.EDC 15:38
DX: M54.5 Low back pain (principal); E87.6 Hypokalemia; N18.9 Chronic kidney disease, unspecified; H26.9 Unspecified cataract; F32.9 Major depressive disorder, single episode, unspecified; I12.9 Hypertensive chronic kidney disease with stage 1 through stage 4 chronic kidney disease, or unspecified chronic kidney disease; M81.0 Age-related osteoporosis without current pathological fracture; Z79.899 Other long term (current) drug therapy; M79.604 Pain in right leg; M79.605 Pain in left leg; R60.0 Localized edema

== ENCOUNTER → 2016-12-17 | Outpatient (CLI) | payer OTHER ==
[~2016-12-17] MED LIST changes: +ANT25 PO; -CALCCHW57 PO; +FLUT0.15 NAE; +KETO2SHA TOP; -MECL1TAB40 PO; -ONDA4TAB65 PO; -TRIA55SP NAE; -[UNRECOGNIZED DRUG - OTHER] NAE
[2016-12-17 12:14] LABS: BASO % 0.2 %; BASO ABS # 0.02 K/uL (0-0.2); COMPLETE YES; EOS % 1.3 %; HEMATOCRIT 36.7 % (37-47); IG% 0.5 %; LYMPH % 19.5 %; MEAN CELL VOLUME 86.6 fL (80-100); MEAN CORPUSCULAR HEMOGLOBIN 28.3 pg (25-34); MEAN CORPUSCULAR HGB CONC 32.7 g/dl (32-36); MEAN PLATELET VOLUME 11.5 fL (7.4-10.4); MONO % 5.8 %; NEUT % 72.7 %; PLATELET COUNT 200 K/uL (130-400); RED BLOOD COUNT 4.24 M/uL (4.2-5.4); WHITE BLOOD COUNT 9.25 K/uL (4.8-10.8)
[2016-12-17 12:43] LABS: ALT/SGPT 16 U/L (12-78); BLOOD UREA NITROGEN 37 mg/dl (7-18); BUN/CREATININE RATIO 19.5 (10-20); CALCIUM 9.2 mg/dl (8.5-10.1); CARBON DIOXIDE 33 mmol/L (21-32); CHLORIDE 99 mmol/L (98-107); GLUCOSE 94 mg/dl (70-99); POTASSIUM 3.2 mmol/L (3.5-5.1); SODIUM 138 mmol/L (136-145)
[2016-12-17 12:46] LABS: ALKALINE PHOSPHATASE 94 U/L (45-117); AST/SGOT 13 U/L (15-37)
== END | disposition home or self-care (01) ==
LOC: C.LAB1850 11:20
PROVIDERS: ATTEND Internal Medicine
DX: N18.3 Chronic kidney disease, stage 3 (moderate) (principal); E55.9 Vitamin D deficiency, unspecified

== ENCOUNTER 2017-02-10 11:56 | Emergency (ER) | payer OTHER ==
[~2017-02-10] VITALS: Ht 163.8 cm; Wt 97.7 kg
[~2017-02-10 11:56] MED LIST changes: -MAGN400T6 PO
[2017-02-10 12:03] VITALS: TEMP 36.8; Ht 163.8 cm; Wt 97.7 kg
[2017-02-10 12:28] VITALS: O2SAT 95
[2017-02-10] MEDS ORDERED: OXYCODONE/ACETAMINOPHEN 5-325 TAB PO STA (12:35)
[2017-02-10] MEDS ORDERED: MAGN400T6 PO (13:09)
--- NOTE | 2017-02-10 13:16 | DIAGNOSTIC IMAGING REPORT ---
CHEST ONE VIEW PORTABLE CLINICAL HISTORY: Chest pain. Right shoulder pain. COMPARISON STUDY: Chest radiograph November 04, 2016. FINDINGS: Surgical clips within the right breast are incidentally noted. Lung volumes are normal. There is no pneumothorax or pleural effusion. There is no evidence of pulmonary edema. Mild enlargement of the cardiac silhouette is unchanged. No consolidation is identified to suggest pneumonia. The appearance of the chest is unchanged. IMPRESSION: No acute cardiopulmonary findings. No change in appearance of the chest. Electronically signed by: Chapin Rosales M.D. 02/10/2017 1:15 PM Dictated Date/Time: 02/10/2017 1:14 PM
--- NOTE | 2017-02-10 13:16 | DIAGNOSTIC IMAGING REPORT ---
RIGHT SHOULDER MIN 2 VIEWS ROUTINE CLINICAL HISTORY: 87 years-old Female presenting with right shoulder pain, chest pain. TECHNIQUE: Internal rotation, external rotation, and Grashey views of the right shoulder were obtained. COMPARISON: Comparison made to chest x-ray from 01/21/2016. FINDINGS: No subluxation of the humeral head. Glenohumeral and acromioclavicular joints congruent. Degenerative changes of the acromioclavicular joint noted. No acute fracture. Visualized portions of the right hemithorax are grossly normal. IMPRESSION: No acute osseous injury of the right shoulder. Degenerative changes of the acromioclavicular joint. Electronically signed by: Gary Forbes M.D. 02/10/2017 1:15 PM Dictated Date/Time: 02/10/2017 1:13 PM
--- NOTE | 2017-02-10 13:35 | EMERGENCY ROOM VISIT NOTE ---
History Report prepared by Keri: Rui Luis Under the Supervision of: Dr. Alek Huertas M.D. First contact with patient: 12:30 Chief Complaint: CHEST PAIN Stated Complaint: CHEST PAINS Nursing Triage Summary: patient c/o primarily right clavicular and shoulder pain, tenderness upon palpation, worsened with movement of arm. Per son, "its been going on for months, she's had it looked at a few times and they always say everything it is alright." History of Present Illness The patient is an 87 year old female who presents to the Emergency Room with complaints of worsening right sided chest pain for the past couple of months that feels sore. The patient states that she was here in the ED in October, and she was complaining of it back then, though it was much more mild back then. The patient states that she is having some pain with movement and pain into her neck and shoulder. The patient's son states that the patient uses a walker to walk, and it hurts while using it. The patient denies any falls, shortness of breath, nausea, vomiting, or cough. The patient has a history of spinal stenosis and she has edema in her leg which she is taking a water pill for. Additionally, the patient states that she has had shoulder surgery on both shoulders. Source of History: patient, family Onset: a few months ago Position: chest (right) Quality: other (sore) Timing: worsening Associated Symptoms: No cough, No SOB, No nausea, No vomiting Note: Associated symptoms: neck pain, shoulder pain Review of Systems See HPI for pertinent positives and negatives. A total of ten systems were reviewed and were otherwise negative. Past Medical & Surgical Medical Problems: (1) Appendectomy (2) Cataract (3) Depression (4) Dizziness (5) History of - hypertension (6) Hysterectomy (7) Osteoporosis (8) Vertigo Family History No pertinent family history Social History Smoking Status: Never Smoker Drug Use: none Marital Status: Housing Status: lives alone Occupation Status: retired Current/Historical Medications Scheduled Acetaminophen (Tylenol Arthritis Ext Rel), 650 MG PO QID Cyclosporine (Ophth) (Restasis), 1 DROP OPB BID Esomeprazole Magnesium (Nexium), 40 MG PO DAILY Fluticasone Propionate (Nasal) (Flonase Allergy Relief), 2 SPRAYS MARTY DAILY Gabapentin (Neurontin), 200 MG PO QAM Gabapentin (Neurontin), 300 MG PO QPM Hctz/Losartan (Hyzaar 25MG/100MG), 1 TAB PO QAM Sertraline Hcl (Zoloft), 25 MG PO DAILY Scheduled PRN Fluticasone Prop/Salmeterol (Advair Diskus 250-50 Mcg/Dose), 1 PUFF INH BID PRN for SOB/Wheezing Meclizine HCl (Meclizine HCl), 2 MG PO TID PRN for Dizziness or Vertigo Polyethylene Glycol-Propylene (Systane), 1 DROP OPB BID PRN for PRN Miscellaneous Medications Magnesium Oxide (Mag-Ox), 400 MG PO Allergies Coded Allergies: Levofloxacin (Verified Allergy, Intermediate, red painful skin,itching, burning, 07/26/16) Amoxicillin (Verified Allergy, Unknown, G I UPSET, 07/26/16) Aspirin (Verified Allergy, Unknown, UNKNOWN, 07/26/16) Cefdinir (Verified Allergy, Unknown, UNKNOWN, 07/26/16) Cephalosporins (Verified Allergy, Unknown, G I UPSET, 07/26/16) Iodine (Verified Allergy, Unknown, RASH, 07/26/16) Penicillins (Verified Allergy, Unknown, 07/26/16) Sulfa Drugs (Verified Allergy, Unknown, G I UPSET, 07/26/16) Venlafaxine (Verified Allergy, Unknown, UNKNOWN, 07/26/16) Codeine (Verified Adverse Reaction, Mild, GI UPSET, 07/26/16) Tapentadol (Verified Adverse Reaction, Unknown, "drunk as a hoot owl", ) pt/gmg Physical Exam Vital Signs Date Time Temp Pulse Resp B/P (MAP) Pulse Ox O2 Delivery O2 Flow Rate FiO2 02/10/17 18:18 70 16 104/60 98 Nasal Cannula 2.0 02/10/17 17:21 79 20 113/59 98 Nasal Cannula 2.0 02/10/17 16:56 71 99 02/10/17 16:26 71 98 02/10/17 15:26 73 21 02/10/17 15:05 113/59 02/10/17 14:26 72 13 96 02/10/17 14:04 151/75 02/10/17 14:03 73 20 151/75 96 Nasal Cannula 2.0 02/10/17 13:56 73 18 02/10/17 13:26 77 26 02/10/17 12:56 78 29 02/10/17 12:28 95 Room Air 02/10/17 12:26 83 18 02/10/17 12:25 81 02/10/17 12:03 36.8 80 18 167/74 95 Room Air Physical Exam GENERAL: Awake, alert, well-appearing, in no distress HENT: Dry mucous membranes. Normocephalic, atraumatic. Oropharynx unremarkable. EYES: Normal conjunctiva. Sclera non-icteric. NECK: Supple. No nuchal rigidity. FROM. No JVD. RESPIRATORY: Clear to auscultation. CARDIAC: Regular rate, normal rhythm. Extremities warm and well perfused. Pulses equal. ABDOMEN: Soft, non-distended. No tenderness to palpation. No rebound or guarding. No masses. RECTAL: Deferred. MUSCULOSKELETAL: Tenderness across the right upper anterior chest wall along the clavicle where she has a bony protrusion extending down. Tenderness to palpation in the right shoulder with tenderness throughout the GH joint and with active range of motion but minimal pain with passive range of motion. Distal motor and sensory intact. The back is symmetrical on inspection without obvious abnormality. There is no CVA tenderness to palpation. No joint edema. LOWER EXTREMITIES: Calves are equal size bilaterally and non-tender. No edema. No discoloration. NEURO: Normal sensorium. No sensory or motor deficits noted. SKIN: No rash or jaundice noted. Medical Decision & Procedures ER Provider Diagnostic Interpretation: Radiology results as stated below per my review and radiologist interpretation: RIGHT SHOULDER MIN 2 VIEWS ROUTINE CLINICAL HISTORY: 87 years-old Female presenting with right shoulder pain, chest pain. TECHNIQUE: Internal rotation, external rotation, and Grashey views of the right shoulder were obtained. COMPARISON: Comparison made to chest x-ray from 01/21/2016. FINDINGS: No subluxation of the humeral head. Glenohumeral and acromioclavicular joints congruent. Degenerative changes of the acromioclavicular joint noted. No acute fracture. Visualized portions of the right hemithorax are grossly normal. IMPRESSION: No acute osseous injury of the right shoulder. Degenerative changes of the acromioclavicular joint. Electronically signed by: Gary Forbes M.D. 02/10/2017 1:15 PM Dictated Date/Time: 02/10/2017 1:13 PM CHEST ONE VIEW PORTABLE CLINICAL HISTORY: Chest pain. Right shoulder pain. COMPARISON STUDY: Chest radiograph November 04, 2016. FINDINGS: Surgical clips within the right breast are incidentally noted. Lung volumes are normal. There is no pneumothorax or pleural effusion. There is no evidence of pulmonary edema. Mild enlargement of the cardiac silhouette is unchanged. No consolidation is identified to suggest pneumonia. The appearance of the chest is unchanged. IMPRESSION: No acute cardiopulmonary findings. No change in appearance of the chest. Electronically signed by: Chapin Rosales M.D. 02/10/2017 1:15 PM Dictated Date/Time: 02/10/2017 1:14 PM (CHEST) THORAX WITHOUT CT DOSE: 885.38 mGy.cm CLINICAL HISTORY: 87 years-old Female with Right cw pain, eval for malignancy. Acute right-sided chest pain. History of breast cancer. TECHNIQUE: Multiaxial CT images of the chest were performed without contrast. A dose lowering technique was utilized adhering to the principles of ALARA. COMPARISON: Portable chest radiograph of same day, chest CT 09/03/2015, PET CT 08/26/2014, chest CT 02/07/2014. FINDINGS: No focal thyroid nodule identified. Nonspecific bilateral axillary lymph nodes are seen measuring up to 1.2 cm in short axis on the right. These findings appear stable from 09/03/2015 study. No new adenopathy about the chest is identified. Heart is mildly enlarged. Mitral annular calcifications are noted. Coronary arterial disease is present. There is mild atherosclerotic plaquing of the thoracic aorta. 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 There is no pneumothorax, pleural effusion or lobar airspace consolidation. There is subsegmental groundglass opacities of the lung bases suggesting atelectasis. Scattered areas of bilateral mosaic attenuation are present suggesting air trapping. Unchanged 3 mm noncalcified pulmonary nodule involves the right lung apex, likely benign and unchanged dating back to PET/CT 03/05/2015. No new or suspicious pulmonary nodules are identified. There is mild biapical pleural parenchymal scarring. Central airways are patent. Respiratory motion limits violation of the lung bases. Imaged upper abdominal structures are within normal limits. Postsurgical changes with asymmetric skin thickening in noted within the right breast without focal right breast mass identified. The bones are moderately demineralized. No suspicious lytic or blastic bony lesions to suggest metastasis. Subacute to chronic appearing nondisplaced fracture is seen involving the anterolateral left eighth rib, new from comparison. This is best seen on the sagittal images. IMPRESSION: 1. No acute intrathoracic abnormality identified. 2. Acute to subacute appearing subtle nondisplaced fracture involves the anterolateral left eighth rib, new from comparison study dated 09/03/2015. Correlate with point tenderness. 3. Unchanged nonspecific mild axillary adenopathy. 4. Post surgical changes of the right breast with persistent asymmetric right breast skin thickening, likely post-therapeutic changes. 5. No definite evidence of metastatic disease. 6. 3 mm noncalcified pulmonary nodule of the right lung apex is unchanged from 08/26/2014 compatible with benign etiology. Electronically signed by: Andreas Pitts M.D. 02/10/2017 6:08 PM Dictated Date/Time: 02/10/2017 5:55 PM Laboratory Results 02/10/17 14:00 Red Blood Count 4.12, Mean Corpuscular Volume 88.6, Mean Corpuscular Hemoglobin 27.9, Mean Corpuscular Hemoglobin Concent 31.5, Mean Platelet Volume 11.1, Neutrophils (%) (Auto) 74.4, Lymphocytes (%) (Auto) 18.4, Monocytes (%) (Auto) 4.9, Eosinophils (%) (Auto) 1.6, Basophils (%) (Auto) 0.2, Neutrophils # (Auto) 6.37, Lymphocytes # (Auto) 1.58, Monocytes # (Auto) 0.42, Eosinophils # (Auto) 0.14, Basophils # (Auto) 0.02 02/10/17 14:00 Test 02/10/17 14:00 White Blood Count 8.57 K/uL (4.8-10.8) Red Blood Count 4.12 M/uL (4.2-5.4) Hemoglobin 11.5 g/dL (12.0-16.0) Hematocrit 36.5 % (37-47) Mean Corpuscular Volume 88.6 fL (80-100) Mean Corpuscular Hemoglobin 27.9 pg (25-34) Mean Corpuscular Hemoglobin Concent 31.5 g/dl (32-36) Platelet Count 188 K/uL (130-400) Mean Platelet Volume 11.1 fL (7.4-10.4) Neutrophils (%) (Auto) 74.4 % Lymphocytes (%) (Auto) 18.4 % Monocytes (%) (Auto) 4.9 % Eosinophils (%) (Auto) 1.6 % Basophils (%) (Auto) 0.2 % Neutrophils # (Auto) 6.37 K/uL (1.4-6.5) Lymphocytes # (Auto) 1.58 K/uL (1.2-3.4) Monocytes # (Auto) 0.42 K/uL (0.11-0.59) Eosinophils # (Auto) 0.14 K/uL (0-0.5) Basophils # (Auto) 0.02 K/uL (0-0.2) RDW Standard Deviation 49.7 fL (36.4-46.3) RDW Coefficient of Variation 15.3 % (11.5-14.5) Immature Granulocyte % (Auto) 0.5 % Immature Granulocyte # (Auto) 0.04 K/uL (0.00-0.02) Anion Gap 4.0 mmol/L (3-11) Est Creatinine Clear Calc Drug Dose 26.7 ml/min Estimated GFR () 30.9 Estimated GFR (Non- 26.6 BUN/Creatinine Ratio 16.6 (10-20) Calcium Level 8.9 mg/dl (8.5-10.1) Troponin I < 0.015 ng/ml (0-0.045) Pro-B-Type Natriuretic Peptide 132 pg/ml (0-1800) Laboratory results reviewed by me Medications Administered Medications (Trade) Dose Ordered Sig/[place] Route Start Time Stop Time Status Last Admin Dose Admin Oxycodone/ Acetaminophen (Percocet 5-325mg Tab) 1 tab NOW STAT PO 02/10/17 12:35 02/10/17 12:44 DC 02/10/17 12:52 1 TAB Sodium Chloride 500 ml @ 125 mls/hr Q4H STAT IV 02/10/17 15:31 02/10/17 19:04 DC 02/10/17 15:37 125 MLS/HR ECG Indication: chest pain Rate (beats per minute): 78 Rhythm: normal sinus Findings: no acute ischemic change, other (Normal axis) ED Course 1230: The patient was evaluated in room C10. A complete history and physical exam was performed. 1235: Percocet 5-325mg Tab PO 1504: I reevaluated the patient, and she was resting comfortably 1531: Sodium Chloride 500 ml @ 125 mls/hr IV 1810: I reevaluated the patient. Discussed results and discharge instructions: She verbalized understanding and agreement. The patient is ready for discharge. Medical Decision I reviewed the patient's past medical history, medications, and the nursing notes as described above. The patient's presentation and history were concerning for musculoskeletal strain, rotator cuff injury, costochondritis, less likely ACS, PE, pneumonia, bronchitis, and CHF. The patient is 87 yo woman with pmhx of remote breast cancer who presents to the ED with c/o of progressively worsening right sided chest and shoulder pain ov the past several months per hpi. On arrival the patient is in NAD. AFVSS. On exam has ttp over right clavicle to AC joint. TTP through right GH joint. Pain wiht active ROM and minimal with passive ROM suggestive of RC injury/ tendinitis. Labs and EKG done in setting of patient 's age, however however, unremarkable. Considering patient's constant long standing sx and reproducible sx with palpation and ROM c/w MSk no further cardiac w/u indicated. Xray's notable for arthritis . However, in the setting of the patient's remote breast cancer hx, possibility of recurrence of disease. Thus CT chest was done and showed now acute findings. Findings and plan for follow-up d/w patient. Patient agreeable and d/c'd per discharge instructions. Medication Reconcilliation Current Medication List: was personally reviewed by me Blood Pressure Screening Patient's blood pressure: Normal blood pressure Impression Primary Impression: Arthritis of shoulder region Scribe Attestation The scribe's documentation has been prepared under my direction and personally reviewed by me in its entirety. I confirm that the note above accurately reflects all work, treatment, procedures, and medical decision making performed by me. Departure Information Dispostion Home / Self-Care Referrals RV. Marino MD (PCP) Forms HOME CARE DOCUMENTATION FORM, IMPORTANT VISIT INFORMATION Patient Instructions Arthritis, Arthritis Acromioclavicular, ED Tendinitis Rotator Cuff, [facility], Rotator Cuff Injury Additional Instructions Please follow up with your primary care physician in the next 1-3 days for reevaluation. Otherwise, your exam, chest x-ray, EKG, lab results, CT scan did not show signs of an emergent condition at this time. Continue your current pain medications as prescribed. Heating pad for additional muscle relaxation. Return to the emergency department for worsening symptoms as described in the accompanying instructions.
[2017-02-10 14:20] LABS: BASO % 0.2 %; BASO ABS # 0.02 K/uL (0-0.2); COMPLETE YES; EOS % 1.6 %; HEMATOCRIT 36.5 % (37-47); IG% 0.5 %; LYMPH % 18.4 %; LYMPH ABS # 1.58 K/uL (1.2-3.4); MEAN CELL VOLUME 88.6 fL (80-100); MEAN CORPUSCULAR HEMOGLOBIN 27.9 pg (25-34); MEAN CORPUSCULAR HGB CONC 31.5 g/dl (32-36); MEAN PLATELET VOLUME 11.1 fL (7.4-10.4); MONO % 4.9 %; NEUT % 74.4 %; PLATELET COUNT 188 K/uL (130-400); RED BLOOD COUNT 4.12 M/uL (4.2-5.4); WHITE BLOOD COUNT 8.57 K/uL (4.8-10.8)
[2017-02-10 14:39] LABS: BLOOD UREA NITROGEN 28 mg/dl (7-18); BUN/CREATININE RATIO 16.6 (10-20); CALCIUM 8.9 mg/dl (8.5-10.1); CARBON DIOXIDE 32 mmol/L (21-32); CHLORIDE 102 mmol/L (98-107); GLUCOSE 116 mg/dl (70-99); POTASSIUM 3.9 mmol/L (3.5-5.1); SODIUM 138 mmol/L (136-145)
[2017-02-10] MEDS ORDERED: SODIUM CHLORIDE 0.9% 500ML 500 ML IV STA (15:31)
--- NOTE | 2017-02-10 18:09 | DIAGNOSTIC IMAGING REPORT ---
(CHEST) THORAX WITHOUT CT DOSE: 885.38 mGy.cm CLINICAL HISTORY: 87 years-old Female with Right cw pain, eval for malignancy. Acute right-sided chest pain. History of breast cancer. TECHNIQUE: Multiaxial CT images of the chest were performed without contrast. A dose lowering technique was utilized adhering to the principles of ALARA. COMPARISON: Portable chest radiograph of same day, chest CT 09/03/2015, PET CT 08/26/2014, chest CT 02/07/2014. FINDINGS: No focal thyroid nodule identified. Nonspecific bilateral axillary lymph nodes are seen measuring up to 1.2 cm in short axis on the right. These findings appear stable from 09/03/2015 study. No new adenopathy about the chest is identified. Heart is mildly enlarged. Mitral annular calcifications are noted. Coronary arterial disease is present. There is mild atherosclerotic plaquing of the thoracic aorta. 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 There is no pneumothorax, pleural effusion or lobar airspace consolidation. There is subsegmental groundglass opacities of the lung bases suggesting atelectasis. Scattered areas of bilateral mosaic attenuation are present suggesting air trapping. Unchanged 3 mm noncalcified pulmonary nodule involves the right lung apex, likely benign and unchanged dating back to PET/CT 03/05/2015. No new or suspicious pulmonary nodules are identified. There is mild biapical pleural parenchymal scarring. Central airways are patent. Respiratory motion limits violation of the lung bases. Imaged upper abdominal structures are within normal limits. Postsurgical changes with asymmetric skin thickening in noted within the right breast without focal right breast mass identified. The bones are moderately demineralized. No suspicious lytic or blastic bony lesions to suggest metastasis. Subacute to chronic appearing nondisplaced fracture is seen involving the anterolateral left eighth rib, new from comparison. This is best seen on the sagittal images. IMPRESSION: 1. No acute intrathoracic abnormality identified. 2. Acute to subacute appearing subtle nondisplaced fracture involves the anterolateral left eighth rib, new from comparison study dated 09/03/2015. Correlate with point tenderness. 3. Unchanged nonspecific mild axillary adenopathy. 4. Post surgical changes of the right breast with persistent asymmetric right breast skin thickening, likely post-therapeutic changes. 5. No definite evidence of metastatic disease. 6. 3 mm noncalcified pulmonary nodule of the right lung apex is unchanged from 08/26/2014 compatible with benign etiology. Electronically signed by: Andreas Pitts M.D. 02/10/2017 6:08 PM Dictated Date/Time: 02/10/2017 5:55 PM
[2017-02-10 18:18] VITALS: BP 104/60; PULSE 70; O2SAT 98
== END 2017-02-10 18:45 | disposition home or self-care (01) ==
LOC: C.EDB 11:58 → C.EDC 18:45
DX: M19.011 Primary osteoarthritis, right shoulder (principal); I10 Essential (primary) hypertension; F32.9 Major depressive disorder, single episode, unspecified; M81.0 Age-related osteoporosis without current pathological fracture; Z90.710 Acquired absence of both cervix and uterus; Z98.49 Cataract extraction status, unspecified eye; Z98.890 Other specified postprocedural states; Z79.899 Other long term (current) drug therapy; Z88.0 Allergy status to penicillin; Z88.1 Allergy status to other antibiotic agents; Z88.2 Allergy status to sulfonamides; Z88.8 Allergy status to other drugs, medicaments and biological substances; Z91.09 Other allergy status, other than to drugs and biological substances

== ENCOUNTER 2017-05-04 12:14 | Emergency (ER) | payer OTHER ==
[~2017-05-04] VITALS: Ht 162.6 cm; Wt 98.0 kg
[~2017-05-04 12:14] MED LIST changes: -CHOL1TAB42 PO; -DICL1.3D21 TOP; -FURO-85 PO; -KETO2SHA TOP; +MAGN400T6 PO; -MONT1TAB3 PO; -PRAM1TAB6 PO
[2017-05-04 12:15] VITALS: TEMP 37.1; Ht 162.6 cm; Wt 98.0 kg
[2017-05-04] MEDS ORDERED: ALBUT/IPRATROP 3MG/0.5MG NEB 3 ML VIAL INH STA ×2 (12:32→14:26)
[2017-05-04 12:45] VITALS: O2SAT 96
--- NOTE | 2017-05-04 12:55 | DIAGNOSTIC IMAGING REPORT ---
CHEST ONE VIEW PORTABLE CLINICAL HISTORY: EVALUATE RESPIRATORY DISTRESS.DYSPNEA dyspnea COMPARISON STUDY: 02/10/2017 FINDINGS: Mild stable cardiomegaly. Diaphragms smooth. Lungs are clear. The costophrenic angles are sharp. IMPRESSION: Mild stable cardiomegaly. No acute process. The above report was generated using voice recognition software. It may contain grammatical, syntax or spelling errors. Electronically signed by: Star Singh M.D. 05/04/2017 12:53 PM Dictated Date/Time: 05/04/2017 12:52 PM
[2017-05-04 13:14] LABS: BASO % 0.2 %; BASO ABS # 0.02 K/uL (0-0.2); COMPLETE YES; EOS % 1.1 %; IG% 0.7 %; LYMPH % 13.6 %; MEAN CELL VOLUME 90.5 fL (80-100); MEAN CORPUSCULAR HEMOGLOBIN 28.6 pg (25-34); MEAN CORPUSCULAR HGB CONC 31.7 g/dl (32-36); MEAN PLATELET VOLUME 10.6 fL (7.4-10.4); NEUT % 78.4 %; PLATELET COUNT 180 K/uL (130-400); RED BLOOD COUNT 3.98 M/uL (4.2-5.4); WHITE BLOOD COUNT 11.75 K/uL (4.8-10.8)
[2017-05-04 13:24] LABS: PARTIAL THROMBOPLASTIN RATIO 1.1; PROTHROMBIN TIME (PATIENT) 10.3 SECONDS (9.0-12.0)
--- NOTE | 2017-05-04 13:31 | EMERGENCY ROOM VISIT NOTE ---
History Report prepared by Keri: Rula Botello Under the Supervision of: Dr. Clarke Urbano D.O. First contact with patient: 12:21 Chief Complaint: COUGH Stated Complaint: COUGH Nursing Triage Summary: pt to the ED from [facility] with a productive cough and pulse ox there of 90% pt states she has been up all night coughing and it hurts her throat when she coughs History of Present Illness The patient is a 87 year old female who presents to the Emergency Room with complaints of a worsening cough that began last night. She reports a productive cough with yellow sputum. She notes rhinorrhea. She went to [facility] today for her symptoms and was advised to come to the ED for further evaluation. The patient denies fevers and chest pain. She has chronic swelling to her legs but denies any new swelling. Source of History: patient Onset: last night Position: chest Quality: other (cough) Timing: worsening Associated Symptoms: No fevers, No SOB Note: Pt notes rhinorrhea. Review of Systems See HPI for pertinent positives & negatives. A total of 10 systems reviewed and were otherwise negative. Past Medical & Surgical Medical Problems: (1) Appendectomy (2) Cataract (3) Depression (4) Dizziness (5) History of - hypertension (6) Hysterectomy (7) Osteoporosis (8) Vertigo Family History No pertinent family history Social History Smoking Status: Never Smoker Drug Use: none Marital Status: Housing Status: lives alone Occupation Status: retired Current/Historical Medications Scheduled Acetaminophen (Tylenol Arthritis Ext Rel), 650 MG PO QID Albuterol Hfa (Ventolin Hfa), 1 PUFF INH Q4 Diclofenac Epolamine (Flector), 1 PATCH TOP DAILY Doxycycline (Monohydrate) (Doxycycline Monohydrate), 100 MG PEG BID Duloxetine HCl (Duloxetine HCl), 40 MG PO DAILY Esomeprazole Magnesium (Nexium), 40 MG PO DAILY Fluticasone Propionate (Nasal) (Flonase Allergy Relief), 2 SPRAYS MARTY DAILY Gabapentin (Neurontin), 300 MG PO TID Lifitegrast (Xiidra), 1 DROP OPB BID Montelukast Sod (Montelukast Sodium), 10 MG PO DAILY Pramipexole Dihydrochloride (Pramipexole Dihydrochlori), 1 MG PO BID Verapamil Hcl (Verapamil Hcl Er), 240 MG PO DAILY Scheduled PRN Fluticasone Prop/Salmeterol (Advair Diskus 250-50 Mcg/Dose), 1 PUFF INH BID PRN for SOB/Wheezing Meclizine HCl (Meclizine HCl), 2 MG PO TID PRN for Dizziness or Vertigo Miscellaneous Medications Magnesium Oxide (Mag-Ox), 400 MG PO Allergies Coded Allergies: Levofloxacin (Verified Allergy, Intermediate, red painful skin,itching, burning, 05/04/17) Amoxicillin (Verified Allergy, Unknown, G I UPSET, 05/04/17) Aspirin (Verified Allergy, Unknown, UNKNOWN, 05/04/17) Cefdinir (Verified Allergy, Unknown, UNKNOWN, 05/04/17) Cephalosporins (Verified Allergy, Unknown, G I UPSET, 05/04/17) Iodine (Verified Allergy, Unknown, RASH, 05/04/17) Penicillins (Verified Allergy, Unknown, 05/04/17) Sulfa Drugs (Verified Allergy, Unknown, G I UPSET, 05/04/17) Venlafaxine (Verified Allergy, Unknown, UNKNOWN, 05/04/17) Codeine (Verified Adverse Reaction, Mild, GI UPSET, 05/04/17) Tapentadol (Verified Adverse Reaction, Unknown, "drunk as a hoot owl", ) pt/gmg Physical Exam Vital Signs Date Time Temp Pulse Resp B/P (MAP) Pulse Ox O2 Delivery O2 Flow Rate FiO2 05/04/17 16:46 101 22 108/72 92 Room Air 05/04/17 15:39 103 21 125/52 92 Room Air 05/04/17 14:41 91 18 100 Room Air 05/04/17 14:10 95 22 148/79 95 05/04/17 12:45 96 Room Air 05/04/17 12:45 96 Room Air 05/04/17 12:37 91 05/04/17 12:15 37.1 92 24 152/80 95 Room Air Physical Exam GENERAL: Patient is awake, alert, somewhat anxious appearing but comfortable. EYES: Bilateral conjunctival infection noted. Clear discharge noted from both eyes. The pupils are round and reactive. EARS, NOSE, MOUTH AND THROAT: The nose is without any evidence of any deformity. Mucous membranes are moist tongue is midline, clear rhinorrhea noted from both nares. NECK: The neck is nontender and supple. RESPIRATORY: Lung sounds diminished throughout with expiratory wheezing in all gonzalez. Normal respiratory effort is noted, there is no evidence of rhonchi or rales CARDIOVASCULAR: Regular rate and rhythm noted there no murmurs rubs or gallops normal S1 normal S2 GASTROINTESTINAL: The abdomen is soft. Bowel sounds are present in all quadrants. Abdomen is nontender MUSCULOSKELETAL/EXTREMITIES: There is no evidence of gross deformity full range of motion is noted in the hips and shoulders SKIN: Pedal edema bilaterally. There is no obvious evidence of any rash. There are no petechiae, pallor or cyanosis noted. NEUROLOGIC: Patient is awake alert and oriented x3 Medical Decision & Procedures ER Provider Diagnostic Interpretation: Radiology results as stated below per my review and radiologist interpretation: CHEST ONE VIEW PORTABLE CLINICAL HISTORY: EVALUATE RESPIRATORY DISTRESS.DYSPNEA dyspnea COMPARISON STUDY: 02/10/2017 FINDINGS: Mild stable cardiomegaly. Diaphragms smooth. Lungs are clear. The costophrenic angles are sharp. IMPRESSION: Mild stable cardiomegaly. No acute process. The above report was generated using voice recognition software. It may contain grammatical, syntax or spelling errors. Electronically signed by: Star Singh M.D. 05/04/2017 12:53 PM Dictated Date/Time: 05/04/2017 12:52 PM Laboratory Results 05/04/17 12:50 Red Blood Count 3.98, Mean Corpuscular Volume 90.5, Mean Corpuscular Hemoglobin 28.6, Mean Corpuscular Hemoglobin Concent 31.7, Mean Platelet Volume 10.6, Neutrophils (%) (Auto) 78.4, Lymphocytes (%) (Auto) 13.6, Monocytes (%) (Auto) 6.0, Eosinophils (%) (Auto) 1.1, Basophils (%) (Auto) 0.2, Neutrophils # (Auto) 9.22, Lymphocytes # (Auto) 1.60, Monocytes # (Auto) 0.70, Eosinophils # (Auto) 0.13, Basophils # (Auto) 0.02 05/04/17 12:50 Test 05/04/17 12:48 05/04/17 12:50 Influenza Type A (RT-PCR) Neg for Influ A (NEG) Influenza Type A Antigen Neg for Influ A (NEG) Influenza Type B Antigen Neg for Influ B (NEG) Influenza Type B (RT-PCR) Neg for Influ B (NEG) White Blood Count 11.75 K/uL (4.8-10.8) Red Blood Count 3.98 M/uL (4.2-5.4) Hemoglobin 11.4 g/dL (12.0-16.0) Hematocrit 36.0 % (37-47) Mean Corpuscular Volume 90.5 fL (80-100) Mean Corpuscular Hemoglobin 28.6 pg (25-34) Mean Corpuscular Hemoglobin Concent 31.7 g/dl (32-36) Platelet Count 180 K/uL (130-400) Mean Platelet Volume 10.6 fL (7.4-10.4) Neutrophils (%) (Auto) 78.4 % Lymphocytes (%) (Auto) 13.6 % Monocytes (%) (Auto) 6.0 % Eosinophils (%) (Auto) 1.1 % Basophils (%) (Auto) 0.2 % Neutrophils # (Auto) 9.22 K/uL (1.4-6.5) Lymphocytes # (Auto) 1.60 K/uL (1.2-3.4) Monocytes # (Auto) 0.70 K/uL (0.11-0.59) Eosinophils # (Auto) 0.13 K/uL (0-0.5) Basophils # (Auto) 0.02 K/uL (0-0.2) RDW Standard Deviation 52.7 fL (36.4-46.3) RDW Coefficient of Variation 15.9 % (11.5-14.5) Immature Granulocyte % (Auto) 0.7 % Immature Granulocyte # (Auto) 0.08 K/uL (0.00-0.02) Prothrombin Time 10.3 SECONDS (9.0-12.0) Prothromb Time International Ratio 1.0 (0.9-1.1) Activated Partial Thromboplast Time 29.2 SECONDS (21.0-31.0) Partial Thromboplastin Ratio 1.1 Anion Gap 7.0 mmol/L (3-11) Est Creatinine Clear Calc Drug Dose 29.9 ml/min Estimated GFR () 35.6 Estimated GFR (Non- 30.8 BUN/Creatinine Ratio 19.5 (10-20) Calcium Level 8.8 mg/dl (8.5-10.1) Total Bilirubin 0.4 mg/dl (0.2-1) Aspartate Amino Transf (AST/SGOT) 13 U/L (15-37) Alanine Aminotransferase (ALT/SGPT) 17 U/L (12-78) Alkaline Phosphatase 98 U/L (45-117) Troponin I < 0.015 ng/ml (0-0.045) Total Protein 7.4 gm/dl (6.4-8.2) Albumin 3.7 gm/dl (3.4-5.0) Globulin 3.7 gm/dl (2.5-4.0) Albumin/Globulin Ratio 1.0 (0.9-2) Laboratory results per my review. Medications Administered Medications (Trade) Dose Ordered Sig/Clinton Route Start Time Stop Time Status Last Admin Dose Admin Albuterol/ Ipratropium (Duoneb) 3 ml NOW STAT INH 05/04/17 12:32 05/04/17 12:34 DC 05/04/17 12:49 3 ML Methylprednisolone Sodium Succinate (Solu-Medrol IV) 125 mg NOW STAT IV 05/04/17 14:26 05/04/17 14:27 DC 05/04/17 14:34 125 MG Albuterol/ Ipratropium (Duoneb) 3 ml NOW STAT INH 05/04/17 14:26 05/04/17 14:27 DC 05/04/17 14:34 3 ML Doxycycline Hyclate (Vibramycin Cap) 100 mg ONE ONCE PO 05/04/17 15:45 05/04/17 15:46 DC 05/04/17 15:50 100 MG Acetaminophen (Tylenol Tab) 1,000 mg NOW STAT PO 05/04/17 15:45 05/04/17 15:46 DC 05/04/17 15:50 1,000 MG ECG Indication: other Rate (beats per minute): 90 Rhythm: normal sinus Findings: no acute ischemic change, other Comparison ECG Date: 02/10/17 Change: no significant change ED Course 1221: The patient was evaluated in room B3B. A complete history and physical examination were performed. 1232: DuoNeb 3 ml INH 1425: I reevaluated the patient and she is getting a second breathing treatment. 1426: DuoNeb 3 ml INH, Solu-Medrol 125 mg IV 1545: Tylenol 1000 mg PO, Vibramycin 100 mg PO 1556: I reassessed the patient at this time. She is feeling better and resting comfortably. I discussed the results and treatment plan with the patient. I answered all pertaining questions that she had. She expressed understanding and verbalized agreement. The patient will be discharged home. Medical Decision Differential diagnosis: Etiologies such as infections, reactive airway disease, pneumonia, pneumothorax , COPD, CHF, cardiac ischemia, pulmonary embolism, musculoskeletal, gastrointestinal, as well as others were entertained. Nursing notes reviewed. The patient is an 87-year-old female who presented to emergency department for evaluation of cough. The patient has been suffering with a cough which is been ongoing for the last few days. She did not have a fever but her overall history and physical exam appeared to be consistent with an infectious process. Chest x- ray showed no acute process. She was treated with bronchodilator therapy in emergency department. She was also given a dose of by mouth steroids and antibiotics. She was reevaluated multiple times. She was very concerned because she was sent from the urgent care center for further evaluation and reportedly with hypoxia although the patient has not had any episodes of hypoxia while in the emergency department. She was evaluated by the emergency Department case loader operator. The patient was encouraged to rest and continue all medications as prescribed. Otherwise she was encouraged to call her primary care physician to schedule a follow-up appointment and return to the emergency department immediately if symptoms change worsen or the need arises. Medication Reconcilliation Current Medication List: was personally reviewed by me Blood Pressure Screening Patient's blood pressure: Elevated blood pressure Blood pressure disposition: Elevated BP felt to be situational Impression Primary Impression: Bronchitis Additional Impression: Cough Scribe Attestation The scribe's documentation has been prepared under my direction and personally reviewed by me in its entirety. I confirm that the note above accurately reflects all work, treatment, procedures, and medical decision making performed by me. Departure Information Dispostion Home / Self-Care Prescriptions Doxycycline (Monohydrate) (DOXYCYCLINE MONOHYDRATE) 100 Mg Tab 100 MG PEG BID, #14 TABS Prov: Clarke Urbano, 05/04/17 Albuterol Hfa (VENTOLIN HFA) 200 Puffs/75094 Mcg Aers 1 PUFF INH Q4, #1 INHALER Prov: Clarke Urbano, 05/04/17 Referrals RV. Marino MD (PCP) Forms HOME CARE DOCUMENTATION FORM, IMPORTANT VISIT INFORMATION Patient Instructions Bronchitis Acute, My [facility] Additional Instructions Rest and avoid any strenuous activity. Call your family to schedule a follow -up appointment. Continue using Tylenol as directed for pain and fever. Return to the emergency department immediately symptoms change worsen or the need arises. Problem Qualifiers
[2017-05-04 13:35] LABS: ALT/SGPT 17 U/L (12-78); AST/SGOT 13 U/L (15-37); BLOOD UREA NITROGEN 29 mg/dl (7-18); BUN/CREATININE RATIO 19.5 (10-20); CALCIUM 8.8 mg/dl (8.5-10.1); CARBON DIOXIDE 28 mmol/L (21-32); CHLORIDE 104 mmol/L (98-107); CREATININE 1.51 mg/dl (0.60-1.20); GLUCOSE 101 mg/dl (70-99); POTASSIUM 3.7 mmol/L (3.5-5.1); SODIUM 139 mmol/L (136-145)
[2017-05-04] MEDS ORDERED: DULO-76 PO (13:35)
[2017-05-04] MEDS ORDERED: VERA240C2 PO (13:35)
[2017-05-04] MEDS ORDERED: FLCP TOP (13:35)
[2017-05-04] MEDS ORDERED: PRAM1TAB6 PO (13:35)
[2017-05-04] MEDS ORDERED: NRN/300 PO (13:35)
[2017-05-04] MEDS ORDERED: LIFI5DRO OPB (13:35)
[2017-05-04] MEDS ORDERED: SNG10 PO (13:35)
[2017-05-04 13:40] LABS: ALKALINE PHOSPHATASE 98 U/L (45-117)
[2017-05-04] MEDS ORDERED: METHYLPREDNISOLONE 125 MG VIAL IV STA (14:26)
[2017-05-04 14:59] LABS: INFLUENZA A PCR Neg for Influ A (NEG); INFLUENZA B PCR Neg for Influ B (NEG)
[2017-05-04] MEDS ORDERED: ACETAMINOPHEN 500 MG TAB PO STA (15:45)
[2017-05-04] MEDS ORDERED: DOXYCYCLINE HYCLATE 100 MG CAP PO ONE (15:45)
[2017-05-04] MEDS ORDERED: DOXY100T17 PEG (15:49)
[2017-05-04] MEDS ORDERED: VNTHFA/IN INH (15:49)
[2017-05-04 16:46] VITALS: BP 108/72; PULSE 101; O2SAT 92
== END 2017-05-04 17:04 | disposition home or self-care (01) ==
LOC: C.EDB 12:15
DX: J40 Bronchitis, not specified as acute or chronic (principal); Z98.49 Cataract extraction status, unspecified eye; F32.9 Major depressive disorder, single episode, unspecified; I10 Essential (primary) hypertension; Z90.710 Acquired absence of both cervix and uterus; M81.0 Age-related osteoporosis without current pathological fracture; Z79.899 Other long term (current) drug therapy

== ENCOUNTER 2017-05-23 14:32 | Emergency (ER) | payer OTHER ==
[~2017-05-23] VITALS: Ht 162.6 cm; Wt 103.0 kg
[~2017-05-23 14:32] MED LIST changes: -CYCL0.052 OPB; +DOXY100T17 PEG; +DULO-76 PO; +FLCP TOP; -GABA1CAP PO; -HYZ/10015 PO; +LIFI5DRO OPB; +NRN/300 PO; -POLYSOL4 OPB; +PRAM1TAB6 PO; -SERT1TAB72 PO; +SNG10 PO; +VERA240C2 PO; +VNTHFA/IN INH
[2017-05-23 14:35] VITALS: TEMP 36.4; Ht 162.6 cm; Wt 103.0 kg
[2017-05-23 15:36] LABS: BASO % 0.5 %; BASO ABS # 0.03 K/uL (0-0.2); COMPLETE YES; EOS % 1.9 %; HEMATOCRIT 35.2 % (37-47); IG% 0.5 %; LYMPH % 21.5 %; LYMPH ABS # 1.26 K/uL (1.2-3.4); MEAN CELL VOLUME 90.7 fL (80-100); MEAN CORPUSCULAR HEMOGLOBIN 28.6 pg (25-34); MEAN CORPUSCULAR HGB CONC 31.5 g/dl (32-36); MEAN PLATELET VOLUME 10.7 fL (7.4-10.4); MONO % 8.5 %; NEUT % 67.1 %; PLATELET COUNT 162 K/uL (130-400); RED BLOOD COUNT 3.88 M/uL (4.2-5.4); WHITE BLOOD COUNT 5.85 K/uL (4.8-10.8)
--- NOTE | 2017-05-23 15:37 | DIAGNOSTIC IMAGING REPORT ---
CHEST ONE VIEW PORTABLE CLINICAL HISTORY: shortness of breath, leg edema COMPARISON STUDY: 05/04/2017 FINDINGS: The heart is mildly enlarged. Surgical clips project over the right lower lung zone/breast. There is no focal pulmonary consolidation. There are no pleural effusions. Slight vascular prominence, likely relates to technical factors given the patient's body habitus.[ IMPRESSION: Persistent cardiomegaly. No acute findings. Electronically signed by: Cosme Song M.D. 05/23/2017 3:36 PM Dictated Date/Time: 05/23/2017 3:35 PM
[2017-05-23 16:00] LABS: ALB/GLOB RATIO 0.9 (0.9-2); ALKALINE PHOSPHATASE 83 U/L (45-117); ALT/SGPT 18 U/L (12-78); AST/SGOT 15 U/L (15-37); BLOOD UREA NITROGEN 25 mg/dl (7-18); BUN/CREATININE RATIO 13.9 (10-20); CALCIUM 8.5 mg/dl (8.5-10.1); CARBON DIOXIDE 31 mmol/L (21-32); CHLORIDE 101 mmol/L (98-107); CREATININE 1.78 mg/dl (0.60-1.20); GLUCOSE 90 mg/dl (70-99); POTASSIUM 3.3 mmol/L (3.5-5.1); SODIUM 137 mmol/L (136-145)
[2017-05-23 16:02] LABS: PARTIAL THROMBOPLASTIN RATIO 1.1
[2017-05-23 16:03] VITALS: O2SAT 96
--- NOTE | 2017-05-23 16:40 | DIAGNOSTIC IMAGING REPORT ---
ULTRASOUND BILATERAL LOWER EXTREMITY VENOUS CLINICAL HISTORY: Lower extremity edema. Dyspnea. COMPARISON STUDY: Bilateral lower extremity venous ultrasound dated 11/04/2016. TECHNIQUE: Real-time, grayscale, and color Doppler sonography of the deep veins of the right and left lower extremity was performed from the inguinal crease to the calf. Compression and augmentation were utilized. FINDINGS: There is no sonographic evidence of deep venous thrombosis identified in the right or left lower extremity. The common femoral, superficial femoral, and popliteal veins are patent and normally compressible bilaterally. The greater saphenous vein and the profunda femoris vein at the junction with the common femoral vein are clear in both legs. The visualized calf veins are patent bilaterally. Soft tissue edema is present in both legs. IMPRESSION: There is no sonographic evidence of deep venous thrombosis identified in the right or left lower extremity. Electronically signed by: Porfirio Calderón M.D. 05/23/2017 4:38 PM Dictated Date/Time: 05/23/2017 4:38 PM
--- NOTE | 2017-05-23 16:53 | EMERGENCY ROOM VISIT NOTE ---
History First contact with patient: 14:43 Chief Complaint: EDEMA TO EXTREMITY Stated Complaint: SENT BY FOR IV History of Present Illness The patient is a 87 year old female who presents to the Emergency Room with complaints of swelling to both legs. The patient reports she has had swelling to both of her legs for the past 3-4 days. She also reports she has had a 10 pound weight gain in the past 2 weeks. She has shortness of breath which is worse with exertion. She also has a cough which she states is chronic for her. She has had this cough for several months and has been seen by her primary care provider for this. She was recently seen here and diagnosed with bronchitis and treated with doxycycline and an albuterol inhaler but states this did not help the cough. The patient does take Lasix at home for swelling. She takes 20 mg daily and may take an extra pill 1-2 times a week as needed for worsening swelling. The patient states that she typically uses thigh-high compression stockings, however due to insurance issues she has to go to a new location and they do not have the thigh-high stockings. She feels this has contributed to her swelling. She denies any cardiac history or history of CHF. He denies any history of blood clots. She denies any significant pain in the legs. She denies chest pain or fevers. Review of Systems A complete 10 point review of systems was reviewed with the patient with pertinent positives and negatives as per history of present illness. All else were negative. Past Medical/Surgical History Medical Problems: (1) Appendectomy (2) Cataract (3) Depression (4) Dizziness (5) History of - hypertension (6) Hysterectomy (7) Osteoporosis (8) Vertigo Family History No pertinent family history Social History Smoking Status: Never Smoker Drug Use: none Marital Status: Housing Status: lives alone Occupation Status: retired Current/Historical Medications Scheduled Acetaminophen (Tylenol Arthritis Ext Rel), 650 MG PO QID Albuterol Hfa (Ventolin Hfa), 1 PUFF INH Q4 Diclofenac Epolamine (Flector), 1 PATCH TOP DAILY Doxycycline (Monohydrate) (Doxycycline Monohydrate), 100 MG PEG BID Duloxetine HCl (Duloxetine HCl), 40 MG PO DAILY Esomeprazole Magnesium (Nexium), 40 MG PO DAILY Fluticasone Propionate (Nasal) (Flonase Allergy Relief), 2 SPRAYS MARTY DAILY Gabapentin (Neurontin), 300 MG PO TID Lifitegrast (Xiidra), 1 DROP OPB BID Montelukast Sod (Montelukast Sodium), 10 MG PO DAILY Pramipexole Dihydrochloride (Pramipexole Dihydrochlori), 1 MG PO BID Verapamil Hcl (Verapamil Hcl Er), 240 MG PO DAILY Scheduled PRN Fluticasone Prop/Salmeterol (Advair Diskus 250-50 Mcg/Dose), 1 PUFF INH BID PRN for SOB/Wheezing Meclizine HCl (Meclizine HCl), 2 MG PO TID PRN for Dizziness or Vertigo Miscellaneous Medications Magnesium Oxide (Mag-Ox), 400 MG PO Physical Exam Vital Signs Date Time Temp Pulse Resp B/P (MAP) Pulse Ox O2 Delivery O2 Flow Rate FiO2 05/23/17 17:17 83 22 140/61 91 05/23/17 16:03 96 Room Air 05/23/17 16:03 85 153/54 96 Room Air 05/23/17 14:35 36.4 74 18 187/78 97 Room Air Physical Exam VITALS: Vitals are noted on the nurse's note and reviewed by myself. Vital signs stable. GENERAL: This is an 87-year-old female, in no acute distress, nondiaphoretic, well-developed well-nourished. SKIN: The skin was without rashes. EARS: External auditory canals clear, tympanic membranes pearly monet without erythema or effusion bilaterally. EYES: Pupils equal round and reactive to light and accommodation. MOUTH: Mucous membranes moist. Tonsils are not enlarged. Pharynx without erythema or exudate. NECK: Supple without nuchal rigidity. No lymphadenopathy. HEART: Regular rate and rhythm without murmurs gallops or rubs. LUNGS: Clear to auscultation bilaterally without wheezes, rales or rhonchi. No retractions or accessory muscle use. EXTREMITIES: 2+ pitting edema to bilateral lower extremities. No erythema or warmth to suggest cellulitis. Dorsalis pedis pulse 2+. NEURO: Patient was alert and oriented to person place and time. Medical Decision & Procedures ER Provider Diagnostic Interpretation: CHEST ONE VIEW PORTABLE FINDINGS: The heart is mildly enlarged. Surgical clips project over the right lower lung zone/breast. There is no focal pulmonary consolidation. There are no pleural effusions. Slight vascular prominence, likely relates to technical factors given the patient's body habitus.[ IMPRESSION: Persistent cardiomegaly. No acute findings. ULTRASOUND BILATERAL LOWER EXTREMITY VENOUS FINDINGS: There is no sonographic evidence of deep venous thrombosis identified in the right or left lower extremity. The common femoral, superficial femoral, and popliteal veins are patent and normally compressible bilaterally. The greater saphenous vein and the profunda femoris vein at the junction with the common femoral vein are clear in both legs. The visualized calf veins are patent bilaterally. Soft tissue edema is present in both legs. IMPRESSION: There is no sonographic evidence of deep venous thrombosis identified in the right or left lower extremity. Laboratory Results 05/23/17 15:20 Red Blood Count 3.88, Mean Corpuscular Volume 90.7, Mean Corpuscular Hemoglobin 28.6, Mean Corpuscular Hemoglobin Concent 31.5, Mean Platelet Volume 10.7, Neutrophils (%) (Auto) 67.1, Lymphocytes (%) (Auto) 21.5, Monocytes (%) (Auto) 8.5, Eosinophils (%) (Auto) 1.9, Basophils (%) (Auto) 0.5, Neutrophils # (Auto) 3.92, Lymphocytes # (Auto) 1.26, Monocytes # (Auto) 0.50, Eosinophils # (Auto) 0.11, Basophils # (Auto) 0.03 05/23/17 15:20 Test 05/23/17 15:20 05/23/17 15:42 White Blood Count 5.85 K/uL (4.8-10.8) Red Blood Count 3.88 M/uL (4.2-5.4) Hemoglobin 11.1 g/dL (12.0-16.0) Hematocrit 35.2 % (37-47) Mean Corpuscular Volume 90.7 fL (80-100) Mean Corpuscular Hemoglobin 28.6 pg (25-34) Mean Corpuscular Hemoglobin Concent 31.5 g/dl (32-36) Platelet Count 162 K/uL (130-400) Mean Platelet Volume 10.7 fL (7.4-10.4) Neutrophils (%) (Auto) 67.1 % Lymphocytes (%) (Auto) 21.5 % Monocytes (%) (Auto) 8.5 % Eosinophils (%) (Auto) 1.9 % Basophils (%) (Auto) 0.5 % Neutrophils # (Auto) 3.92 K/uL (1.4-6.5) Lymphocytes # (Auto) 1.26 K/uL (1.2-3.4) Monocytes # (Auto) 0.50 K/uL (0.11-0.59) Eosinophils # (Auto) 0.11 K/uL (0-0.5) Basophils # (Auto) 0.03 K/uL (0-0.2) RDW Standard Deviation 52.4 fL (36.4-46.3) RDW Coefficient of Variation 15.8 % (11.5-14.5) Immature Granulocyte % (Auto) 0.5 % Immature Granulocyte # (Auto) 0.03 K/uL (0.00-0.02) Anion Gap 5.0 mmol/L (3-11) Est Creatinine Clear Calc Drug Dose 26.0 ml/min Estimated GFR () 29.2 Estimated GFR (Non- 25.2 BUN/Creatinine Ratio 13.9 (10-20) Calcium Level 8.5 mg/dl (8.5-10.1) Total Bilirubin 0.3 mg/dl (0.2-1) Aspartate Amino Transf (AST/SGOT) 15 U/L (15-37) Alanine Aminotransferase (ALT/SGPT) 18 U/L (12-78) Alkaline Phosphatase 83 U/L (45-117) Troponin I < 0.015 ng/ml (0-0.045) Pro-B-Type Natriuretic Peptide 238 pg/ml (0-1800) Total Protein 7.0 gm/dl (6.4-8.2) Albumin 3.4 gm/dl (3.4-5.0) Globulin 3.6 gm/dl (2.5-4.0) Albumin/Globulin Ratio 0.9 (0.9-2) Prothrombin Time 10.0 SECONDS (9.0-12.0) Prothromb Time International Ratio 1.0 (0.9-1.1) Activated Partial Thromboplast Time 28.4 SECONDS (21.0-31.0) Partial Thromboplastin Ratio 1.1 ECG Rate (beats per minute): 79 Rhythm: normal sinus Findings: no acute ischemic change, no ectopy Change: no significant change Medical Decision Differential diagnosis includes CHF, COPD, bronchitis, pneumonia, pulmonary embolism, cardiac disease, electrolyte abnormality, among others. The patient was evaluated as above. Labs revealed no significant leukocytosis. Creatinine is elevated, but baseline for the patient. Chest x-ray shows no evidence of pneumonia and no evidence of CHF. BNP was not elevated. Troponin is negative. EKG is unchanged from previous. Ultrasound of the legs were performed and showed no evidence of DVT. Oxygen saturation's remained near 100 % on room air. All findings were discussed with the patient. She has been here previously for some similar symptoms and does seem that her legs tend to swell at times. She may benefit from using 5 compression stockings as she has in the past. I recommended elevation of the legs. She is able to take an extra dose of Lasix 1-2 times weekly and I recommended that she do this today and tomorrow to help with swelling. She will call her PCP office tomorrow to schedule follow-up. She will return for any worsening or new/concerning symptoms. She and her son verbalized understanding and she was discharged home in good condition. The patient was independently evaluated by Dr. Huertas, ED attending physician, who agreed with my assessment and treatment plan. Impression Primary Impression: Swelling of both lower extremities Departure Information Dispostion Home / Self-Care Condition GOOD Referrals RV. Marino MD (PCP) Patient Instructions My [facility] Additional Instructions You may take an additional dose of Lasix today and tomorrow as discussed. Elevate the legs to help reduce swelling. You should schedule a follow-up appointment with your primary care provider within the next 2 days for a recheck and to discuss today's visit. They may also be able to get you a prescription for the thigh-high compression stockings. Return here with worsening shortness of breath, fevers, or any other new/ concerning symptoms.
[2017-05-23 17:17] VITALS: BP 140/61; PULSE 83; O2SAT 91
--- NOTE | 2017-05-23 18:50 | EMERGENCY ROOM VISIT NOTE ---
ED Visit Note First contact with patient: 14:43 HPI: BLE edema. Plan: Labs unremarkable. CXR clear. BLE duplex negative. PCP f/u. I reviewed the patient's past medical history, medications, and visit nursing notes. I discussed the case with the physician life science research assistant, examined the patient, and agree with the findings and plan as documented in the physician assistants note.
== END 2017-05-23 17:18 | disposition home or self-care (01) ==
LOC: C.EDB 14:33
DX: R60.0 Localized edema (principal); H26.9 Unspecified cataract; F32.9 Major depressive disorder, single episode, unspecified; I10 Essential (primary) hypertension; M81.0 Age-related osteoporosis without current pathological fracture; Z90.710 Acquired absence of both cervix and uterus

== ENCOUNTER 2017-06-02 09:18 | Inpatient (IN) | payer OTHER ==
[~2017-06-02] VITALS: Ht 162.6 cm; Wt 95.6 kg
[2017-06-02] MEDS ORDERED: METO50TA7 PO (10:02)
[2017-06-02] MEDS ORDERED: FURO-85 PO (10:04)
[2017-06-02 10:06] LABS: BASO % 0.4 %; BASO ABS # 0.03 K/uL (0-0.2); EOS % 1.9 %; EOS ABS # 0.16 K/uL (0-0.5); HEMATOCRIT 35.4 % (37-47); HEMOGLOBIN 11.2 g/dL (12.0-16.0); IG# 0.06 K/uL (0.00-0.02); LYMPH % 14.8 %; LYMPH ABS # 1.26 K/uL (1.2-3.4); MEAN CELL VOLUME 91.5 fL (80-100); MEAN CORPUSCULAR HEMOGLOBIN 28.9 pg (25-34); MEAN CORPUSCULAR HGB CONC 31.6 g/dl (32-36); MEAN PLATELET VOLUME 10.9 fL (7.4-10.4); MONO % 7.5 %; MONO ABS # 0.64 K/uL (0.11-0.59); NEUT % 74.7 %; NEUT ABS # 6.37 K/uL (1.4-6.5); PLATELET COUNT 194 K/uL (130-400); RED CELL DISTRIBUTION WIDTH CV 16.1 % (11.5-14.5); RED CELL DISTRIBUTION WIDTH SD 53.8 fL (36.4-46.3); WHITE BLOOD COUNT 8.52 K/uL (4.8-10.8)
[2017-06-02 10:15] LABS: INR 0.9 (0.9-1.1); PTT PATIENT 27.8 SECONDS (21.0-31.0)
[2017-06-02 10:26] LABS: ALBUMIN 3.5 gm/dl (3.4-5.0); ALT/SGPT 16 U/L (12-78); BLOOD UREA NITROGEN 29 mg/dl (7-18); CALCIUM 9.1 mg/dl (8.5-10.1); CARBON DIOXIDE 30 mmol/L (21-32); GLUCOSE 129 mg/dl (70-99); POTASSIUM 3.9 mmol/L (3.5-5.1); SODIUM 138 mmol/L (136-145)
--- NOTE | 2017-06-02 10:30 | DIAGNOSTIC IMAGING REPORT ---
CHEST ONE VIEW PORTABLE CLINICAL HISTORY: Respiratory distress. Dyspnea. Lower extremity swelling. COMPARISON STUDY: Chest CT February 10, 2017 and chest radiograph May 23, 2017. FINDINGS: Right breast surgical clips are noted. There is no pneumothorax or pleural effusion. Cardiomegaly is unchanged. There is pulmonary vascular congestion without overt pulmonary edema. IMPRESSION: 1. Pulmonary vascular congestion without overt pulmonary edema. 2. No consolidation to suggest pneumonia. Electronically signed by: Chapin Rosales M.D. 06/02/2017 10:29 AM Dictated Date/Time: 06/02/2017 10:27 AM
[2017-06-02 10:31] LABS: ALKALINE PHOSPHATASE 90 U/L (45-117); AST/SGOT 15 U/L (15-37)
[2017-06-02] MEDS ORDERED: FUROSEMIDE 40 MG/4 ML VIAL IV STA (10:47)
[2017-06-02] MEDS ORDERED: ACETAMINOPHEN 500 MG TAB PO ONE (10:57)
[2017-06-02] MEDS ORDERED: DOXYCYCLINE IV 100 MG in DEXTROSE 5% 100ML 100 ML IV SCH (11:00)
[2017-06-02] MEDS ORDERED: NURSING VERBAL MED ORDER ONE ×2 (11:15→19:45)
[2017-06-02] MEDS ORDERED: FUROSEMIDE INJ 20 MG in SYRINGE 0 ML IV ONE (12:15)
[2017-06-02] MEDS ORDERED: ALUMINUM/MAGNESIUM/SIMETH (MAALOX MAX) 30 ML UDC PO PRN (12:15)
[2017-06-02] MEDS ORDERED: NITROGLYCERIN 0.4 MG SL PER TAB CHARGE SL PRN (12:15)
[2017-06-02] MEDS ORDERED: MAGNESIUM HYDROXIDE SUSP 30 ML UDC PO PRN (12:15)
[2017-06-02] MEDS ORDERED: ZOLPIDEM TARTRATE 5 MG TAB PO PRN (12:15)
[2017-06-02] MEDS ORDERED: POLYETHYLENE (MIRALAX) 17 GM PACK PO PRN (12:15)
[2017-06-02] MEDS ORDERED: LEVOFLOXACIN / D5W 500 MG in PREMIXED IN D5W 100 ML IV SCH (12:15)
[2017-06-02] MEDS ORDERED: MECLIZINE HCL 25 MG TAB PO PRN (12:30)
[2017-06-02] MEDS ORDERED: FLUTICASONE/SALMETEROL 250/50 (ADVAIR) 14 PUFF/1 INHALER INH PRN (12:30)
[2017-06-02 14:04] VITALS: BP 163/62; PULSE 91; TEMP 36.3; O2SAT 94; Ht 162.6 cm; Wt 95.6 kg
--- NOTE | 2017-06-02 14:31 | History and Physical ---
History & Physical Date & Time of Service: Jun 02, 2017 at 13:05 Chief Complaint: Swelling In Legs, Infection Primary Care Physician: RV. Marino MD History of Present Illness Source: patient, family 78 years old female with past medical history of hypertension, asthma, obesity, spinal stenosis, neuropathy, pmr, Raynad's phenomena and chronic kidney disease stage III. Presented to the ED with one-week history of worsening shortness of breath, chest and exertional, patient has a hospital bed at home and had to raise the head of the bed in order to be able to breathe comfortably. Denies any chest pain or palpitation. Mouth is significant please didn't have lower extremity swelling. Patient Stated That She Gained 15 Pounds within the Last Week. Patient went for [facility] today who referred her to the ED for her lower extremity cellulitis and swelling. Patient also recently came to the ED and was discharged home from the ED. Ultrasound lower extremity was done then and showed no DVT. About 3 weeks ago patient was treated for bronchitis with doxycycline. Patient has multiple drug allergies including penicillin, sulfa, levofloxacin, sulfa drugs and others. She stated that only penicillin and contrast dye gives her hives the rest of her allergies are only GI upset. Past Medical/Surgical History Medical Problems: (1) Appendectomy Status: Resolved (2) Cataract Status: Chronic (3) Depression Status: Chronic (4) Dizziness Status: Chronic (5) History of - hypertension Status: Chronic (6) Hysterectomy Status: Resolved (7) Osteoporosis Status: Chronic (8) Vertigo Status: Chronic Family History No pertinent family history Social History Smoking Status: Never Smoker Drug Use: none Marital Status: Housing status: lives alone Occupational Status: retired Immunizations History of Influenza Vaccine: Yes History of Tetanus Vaccine?: Yes History of Pneumococcal: Yes History of Hepatitis B Vaccine: No Multi-Drug Resistant Organisms History of MDRO: No Allergies Coded Allergies: Levofloxacin (Verified Allergy, Intermediate, red painful skin,itching, burning, 06/02/17) Amoxicillin (Verified Allergy, Unknown, G I UPSET, 06/02/17) Aspirin (Verified Allergy, Unknown, UNKNOWN, 06/02/17) Cefdinir (Verified Allergy, Unknown, UNKNOWN, 06/02/17) Cephalosporins (Verified Allergy, Unknown, G I UPSET, 06/02/17) Iodine (Verified Allergy, Unknown, RASH, 06/02/17) Penicillins (Verified Allergy, Unknown, 06/02/17) Sulfa Drugs (Verified Allergy, Unknown, G I UPSET, 06/02/17) Venlafaxine (Verified Allergy, Unknown, UNKNOWN, 06/02/17) Codeine (Verified Adverse Reaction, Mild, GI UPSET, 06/02/17) Tapentadol (Verified Adverse Reaction, Unknown, "drunk as a hoot owl", ) pt/gmg Home Medications Scheduled Acetaminophen (Tylenol Arthritis Ext Rel), 650 MG PO QID Diclofenac Epolamine (Flector), 1 PATCH TOP DAILY Duloxetine HCl (Duloxetine HCl), 40 MG PO DAILY Esomeprazole Magnesium (Nexium), 40 MG PO DAILY Fluticasone Propionate (Nasal) (Flonase Allergy Relief), 2 SPRAYS MARTY DAILY Furosemide (Lasix), 1 TAB PO DAILY Gabapentin (Neurontin), 300 MG PO TID Lifitegrast (Xiidra), 1 DROP OPB BID Metoprolol Succ (Toprol Xl) (Toprol-Xl), 1 TAB PO DAILY Montelukast Sod (Montelukast Sodium), 10 MG PO DAILY Pramipexole Dihydrochloride (Pramipexole Dihydrochlori), 1 MG PO BID Verapamil Hcl (Verapamil Hcl Er), 240 MG PO DAILY Scheduled PRN Fluticasone Prop/Salmeterol (Advair Diskus 250-50 Mcg/Dose), 1 PUFF INH BID PRN for SOB/Wheezing Meclizine HCl (Meclizine HCl), 2 MG PO TID PRN for Dizziness or Vertigo Miscellaneous Medications Magnesium Oxide (Mag-Ox), 400 MG PO Review of Systems Constitutional: + weakness, + fatigue, No fever, No chills, No sweats, No weight loss, No problem reported Eyes: No worsening of vision, No eye pain, No redness, No discharge, No diplopia, No problem reported ENT: No hearing loss, No unusual epistaxis, No nasal symptoms, No sore throat, No tinnitus, No dental problems, No trouble swallowing, No problem reported Respiratory: + cough, + shortness of breath, + dyspnea on exertion, + dyspnea at rest, No sputum, No wheezing, No hemoptysis, No problem reported Cardiovascular: + orthopnea, + edema, No chest pain, No PND, No claudication, No palpitations, No problem reported Abdomen: + pain, No nausea, No vomiting, No diarrhea, No constipation, No GI bleeding, No problem reported Musculoskeletal: + joint pain, + muscle pain, + swelling, No calf pain, No problem reported Genitourinary - Female: No dysuria, No urinary frequency, No urinary urgency, No urinary incontinence, No urinary retention, No hematuria, No dysmenorrhea, No menorrhagia, No metrorrhagia, No rash, No vaginal bleeding, No vaginal discharge, No vaginal itching, No vulvodynia, No , No problem reported Neurologic: No memory loss, No paralysis, No weakness, No numbness/tingling, No vertigo, No balance problems, No problem reported Psychiatric: No depression symptoms, No anhedonism, No anxiety, No insomnia, No substance abuse, No problem reported Endocrine: No fatigue, No excessive thirst, No excessive urination, No problem reported Hematologic / Lymphatic: No abnormal bleeding/bruising, No clotting problems, No swollen lymph nodes, No night sweats, No problem reported Integumentary: + rash (left lower extremity), No itch, No new/changing skin lesions, No color change, No bleeding, No problem reported Physical Exam Vital Signs Date Time Temp Pulse Resp B/P (MAP) Pulse Ox O2 Delivery O2 Flow Rate FiO2 06/02/17 11:36 99 20 149/63 94 Room Air 06/02/17 10:10 90 06/02/17 10:08 96 26 138/57 95 Room Air 06/02/17 10:00 95 Room Air 06/02/17 10:00 95 Room Air 06/02/17 09:20 36.3 92 20 162/72 94 Room Air General Appearance: + mild distress, + obese Eyes: normal inspection, EOMI ENT: normal ENT inspection, hearing grossly normal Neck: supple Respiratory/Chest: chest non-tender, + respiratory distress, + decreased breath sounds, + crackles, + rales Cardiovascular: regular rate, rhythm, + systolic murmur Abdomen/GI: non tender, soft, no organomegaly, no pulsatile mass Back: normal inspection Extremities/Musculoskelatal: normal inspection, + calf tenderness, + inflammation (right lower extremity) 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, no motor/sensory deficits, alert, normal mood/affect, normal reflexes, oriented x 3 Skin: normal color, + rash (erythema/swelling/tenderness right lower extremity) Diagnostics Laboratory Results Results Past 24 Hours Test 06/02/17 09:45 Range/Units White Blood Count 8.52 4.8-10.8 K/uL Red Blood Count 3.87 4.2-5.4 M/uL Hemoglobin 11.2 12.0-16.0 g/dL Hematocrit 35.4 37-47 % Mean Corpuscular Volume 91.5 80-100 fL Mean Corpuscular Hemoglobin 28.9 25-34 pg Mean Corpuscular Hemoglobin Concent 31.6 32-36 g/dl Platelet Count 194 130-400 K/uL Mean Platelet Volume 10.9 7.4-10.4 fL Neutrophils (%) (Auto) 74.7 % Lymphocytes (%) (Auto) 14.8 % Monocytes (%) (Auto) 7.5 % Eosinophils (%) (Auto) 1.9 % Basophils (%) (Auto) 0.4 % Neutrophils # (Auto) 6.37 1.4-6.5 K/uL Lymphocytes # (Auto) 1.26 1.2-3.4 K/uL Monocytes # (Auto) 0.64 0.11-0.59 K/uL Eosinophils # (Auto) 0.16 0-0.5 K/uL Basophils # (Auto) 0.03 0-0.2 K/uL RDW Standard Deviation 53.8 36.4-46.3 fL RDW Coefficient of Variation 16.1 11.5-14.5 % Immature Granulocyte % (Auto) 0.7 % Immature Granulocyte # (Auto) 0.06 0.00-0.02 K/uL Prothrombin Time 9.8 9.0-12.0 SECONDS Prothromb Time International Ratio 0.9 0.9-1.1 Activated Partial Thromboplast Time 27.8 21.0-31.0 SECONDS Partial Thromboplastin Ratio 1.1 Sodium Level 138 136-145 mmol/L Potassium Level 3.9 3.5-5.1 mmol/L Chloride Level 104 98-107 mmol/L Carbon Dioxide Level 30 21-32 mmol/L Anion Gap 4.0 3-11 mmol/L Blood Urea Nitrogen 29 7-18 mg/dl Creatinine 1.70 0.60-1.20 mg/dl Est Creatinine Clear Calc Drug Dose 27.8 ml/min Estimated GFR () 30.9 Estimated GFR (Non- 26.6 BUN/Creatinine Ratio 16.9 10-20 Random Glucose 129 70-99 mg/dl Calcium Level 9.1 8.5-10.1 mg/dl Total Bilirubin 0.3 0.2-1 mg/dl Aspartate Amino Transf (AST/SGOT) 15 15-37 U/L Alanine Aminotransferase (ALT/SGPT) 16 12-78 U/L Alkaline Phosphatase 90 45-117 U/L Troponin I < 0.015 0-0.045 ng/ml Pro-B-Type Natriuretic Peptide 210 0-1800 pg/ml Total Protein 7.0 6.4-8.2 gm/dl Albumin 3.5 3.4-5.0 gm/dl Globulin 3.5 2.5-4.0 gm/dl Albumin/Globulin Ratio 1.0 0.9-2 Impression Assessment and Plan 87 year old female past medical history of chronic kidney disease stage III, lower back pain/spinal stenosis, neuropathy, myalgia and obesity presented to the ED with right lower extremity cellulitis, orthopnea, shortness of breath and significant weight gain. Assessment Acute and chronic CHF unspecified type Shortness of breath/orthopnea secondary to above Right lower extremity cellulitis Tenia Pedis Morbid obesity Hypertension Chronic kidney disease stage III, creatinine today is 1.7 which is baseline Spinal stenosis/neuropath Polymyalgia rheumatica Clinically suspected obstructive sleep apnea Plan Admit patient to telemetry Ultrasound right lower extremity rule out DVT, 10 days ago but was not both lower extremity but as per family right lower extremity now is much more swollen and erythematous Gentle diuresis, will start patient on Lasix drip low-dose 4 mg per hour Monitor renal function closely Consult her retail banker, he was supposed to see her tomorrow in his office Order 2-D echo, patient had a stress echo in 2009 that showed ejection fraction of 60% no ischemia Order ceftriaxone 2 g per day is streptococcal does which will cover MSSA/ Strept and the acquired MRSA ,lesion appears to be nonpurulent, since she is not severely toxic or in severe sepsis we'll hold on healthcare associated MRSA coverage as be on large dose of Lasix and her kidneys might be under stress If no improvement happened 2 days, healthcare associated MRSA coverage should be considered Place patient on heparin subcutaneous for DVT prophylaxis Patient home medications are not available, secondary will contact her primary care physician office fax her most recent medication list, until then will start her on Coreg for her blood pressure. Patient said that she was on no medicine that was having her cough and was stopped by her primary doctor, I would think that might be lisinopril I'm not sure, will wait for retrieval of her current medication list At [facility] for C. difficile prophylaxis Ordered nocturnal pulse ox rule out sleep apnea Calculate I/O Plan was discussed with family/patient's son was bedside VTE Prophylaxis VTE Risk Assessment Done? Y/N: Yes Risk Level: Moderate
--- NOTE | 2017-06-02 15:02 | EMERGENCY ROOM VISIT NOTE ---
History Report prepared by Scribe: Tracy Rodriguez Under the Supervision of: Dr. Delmar Toribio D.O. First contact with patient: 09:29 Chief Complaint: SWELLING TO EXTREMITY Stated Complaint: SWELLING IN LEGS, INFECTION History of Present Illness The patient is an 87 year old female who presents to the Emergency Room with complaints of worsening swelling to her right leg. She is accompanied by her son. She states her right leg has been red and increasingly swollen for the past 1 week. She rates her discomfort as a 10/10 in severity. She saw her PCP last week and "had a bunch of tests", but her son states nothing was found. This morning, she went to [facility], and they "wouldn't touch her " because they were afraid of "pushing the infection around". The patient complains of nausea, but has not vomited. She has been short of breath, but states it's been going on "for a long time". She has a cough, but reports it's from bronchitis approximately 3 months ago. The patient believes she has gained 10 pounds in the past week. She states she weighed 228 pounds this morning, but normally weighs 210. She takes daily Lasix and has not missed any doses. The patient denies headache, change in vision, fevers above 100.4, chest pain, vomiting, diarrhea, pain with urination, and melena. 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 A total of 10 systems reviewed and were otherwise negative. Past Medical & Surgical Medical Problems: (1) Appendectomy (2) Cataract (3) CHF (congestive heart failure) (4) Depression (5) Dizziness (6) History of - hypertension (7) Hysterectomy (8) Osteoporosis (9) Vertigo Family History No pertinent family history Social History Smoking Status: Never Smoker Alcohol Use: none Drug Use: none Marital Status: Housing Status: lives alone Occupation Status: retired Current/Historical Medications Scheduled Acetaminophen (Tylenol Arthritis Ext Rel), 650 MG PO QID Diclofenac Epolamine (Flector), 1 PATCH TOP DAILY Duloxetine HCl (Duloxetine HCl), 40 MG PO DAILY Esomeprazole Magnesium (Nexium), 40 MG PO DAILY Fluticasone Propionate (Nasal) (Flonase Allergy Relief), 2 SPRAYS MARTY DAILY Furosemide (Lasix), 1 TAB PO DAILY Gabapentin (Neurontin), 300 MG PO TID Lifitegrast (Xiidra), 1 DROP OPB BID Metoprolol Succ (Toprol Xl) (Toprol-Xl), 1 TAB PO DAILY Montelukast Sod (Montelukast Sodium), 10 MG PO DAILY Pramipexole Dihydrochloride (Pramipexole Dihydrochlori), 1 MG PO BID Verapamil Hcl (Verapamil Hcl Er), 240 MG PO DAILY Scheduled PRN Fluticasone Prop/Salmeterol (Advair Diskus 250-50 Mcg/Dose), 1 PUFF INH BID PRN for SOB/Wheezing Meclizine HCl (Meclizine HCl), 2 MG PO TID PRN for Dizziness or Vertigo Miscellaneous Medications Magnesium Oxide (Mag-Ox), 400 MG PO Allergies Coded Allergies: Levofloxacin (Verified Allergy, Intermediate, red painful skin,itching, burning, 06/02/17) Amoxicillin (Verified Allergy, Unknown, G I UPSET, 06/02/17) Aspirin (Verified Allergy, Unknown, UNKNOWN, 06/02/17) Cefdinir (Verified Allergy, Unknown, UNKNOWN, 06/02/17) Cephalosporins (Verified Allergy, Unknown, G I UPSET, 06/02/17) Iodine (Verified Allergy, Unknown, RASH, 06/02/17) Penicillins (Verified Allergy, Unknown, 06/02/17) Sulfa Drugs (Verified Allergy, Unknown, G I UPSET, 06/02/17) Venlafaxine (Verified Allergy, Unknown, UNKNOWN, 06/02/17) Codeine (Verified Adverse Reaction, Mild, GI UPSET, 06/02/17) Tapentadol (Verified Adverse Reaction, Unknown, "drunk as a hoot owl", ) pt/gmg Physical Exam Vital Signs Date Time Temp Pulse Resp B/P (MAP) Pulse Ox O2 Delivery O2 Flow Rate FiO2 06/02/17 11:36 99 20 149/63 94 Room Air 06/02/17 10:10 90 06/02/17 10:08 96 26 138/57 95 Room Air 06/02/17 10:00 95 Room Air 06/02/17 10:00 95 Room Air 06/02/17 09:20 36.3 92 20 162/72 94 Room Air Physical Exam GENERAL: Sitting up in bed, alert, well appearing, well nourished, no distress, non-toxic, dyspneic with conversation EYE EXAM: normal conjunctiva. OROPHARYNX: no exudate, no erythema, lips, buccal mucosa, and tongue normal and mucous membranes are moist NECK: supple, no nuchal rigidity, no adenopathy, non-tender, no appreciable JVD LUNGS: Faint rhonchi bilaterally. Normal chest wall mechanics HEART: no murmurs, S1 normal and S2 normal ABDOMEN: abdomen soft, non-tender, normo-active bowel sounds, no masses, no rebound or guarding. BACK: Back is symmetrical on inspection and there is no deformity, no midline tenderness, no CVA tenderness. SKIN: no rashes and no bruising UPPER EXTREMITIES: upper extremities are grossly normal. LOWER EXTREMITIES: Diffuse pitting edema tracking to bilateral hip, right leg is larger than left, with surrounding erythema or right foot tracking to right knee. NEURO EXAM: Normal sensorium, cranial nerves II-XII grossly intact, normal speech, no gross weakness of arms, no gross weakness of legs. Gross sensation intact. Medical Decision & Procedures ER Provider Diagnostic Interpretation: Radiology results as stated below per my review and the radiologist's interpretation: CHEST ONE VIEW PORTABLE CLINICAL HISTORY: Respiratory distress. Dyspnea. Lower extremity swelling. COMPARISON STUDY: Chest CT February 10, 2017 and chest radiograph May 23, 2017. FINDINGS: Right breast surgical clips are noted. There is no pneumothorax or pleural effusion. Cardiomegaly is unchanged. There is pulmonary vascular congestion without overt pulmonary edema. IMPRESSION: 1. Pulmonary vascular congestion without overt pulmonary edema. 2. No consolidation to suggest pneumonia. Electronically signed by: Chapin Roasles M.D. 06/02/2017 10:29 AM Laboratory Results 06/02/17 09:45 Red Blood Count 3.87, Mean Corpuscular Volume 91.5, Mean Corpuscular Hemoglobin 28.9, Mean Corpuscular Hemoglobin Concent 31.6, Mean Platelet Volume 10.9, Neutrophils (%) (Auto) 74.7, Lymphocytes (%) (Auto) 14.8, Monocytes (%) (Auto) 7.5, Eosinophils (%) (Auto) 1.9, Basophils (%) (Auto) 0.4, Neutrophils # (Auto) 6.37, Lymphocytes # (Auto) 1.26, Monocytes # (Auto) 0.64, Eosinophils # (Auto) 0.16, Basophils # (Auto) 0.03 06/02/17 09:45 Test 06/02/17 09:45 White Blood Count 8.52 K/uL (4.8-10.8) Red Blood Count 3.87 M/uL (4.2-5.4) Hemoglobin 11.2 g/dL (12.0-16.0) Hematocrit 35.4 % (37-47) Mean Corpuscular Volume 91.5 fL (80-100) Mean Corpuscular Hemoglobin 28.9 pg (25-34) Mean Corpuscular Hemoglobin Concent 31.6 g/dl (32-36) Platelet Count 194 K/uL (130-400) Mean Platelet Volume 10.9 fL (7.4-10.4) Neutrophils (%) (Auto) 74.7 % Lymphocytes (%) (Auto) 14.8 % Monocytes (%) (Auto) 7.5 % Eosinophils (%) (Auto) 1.9 % Basophils (%) (Auto) 0.4 % Neutrophils # (Auto) 6.37 K/uL (1.4-6.5) Lymphocytes # (Auto) 1.26 K/uL (1.2-3.4) Monocytes # (Auto) 0.64 K/uL (0.11-0.59) Eosinophils # (Auto) 0.16 K/uL (0-0.5) Basophils # (Auto) 0.03 K/uL (0-0.2) RDW Standard Deviation 53.8 fL (36.4-46.3) RDW Coefficient of Variation 16.1 % (11.5-14.5) Immature Granulocyte % (Auto) 0.7 % Immature Granulocyte # (Auto) 0.06 K/uL (0.00-0.02) Prothrombin Time 9.8 SECONDS (9.0-12.0) Prothromb Time International Ratio 0.9 (0.9-1.1) Activated Partial Thromboplast Time 27.8 SECONDS (21.0-31.0) Partial Thromboplastin Ratio 1.1 Anion Gap 4.0 mmol/L (3-11) Est Creatinine Clear Calc Drug Dose 27.8 ml/min Estimated GFR () 30.9 Estimated GFR (Non- 26.6 BUN/Creatinine Ratio 16.9 (10-20) Calcium Level 9.1 mg/dl (8.5-10.1) Total Bilirubin 0.3 mg/dl (0.2-1) Aspartate Amino Transf (AST/SGOT) 15 U/L (15-37) Alanine Aminotransferase (ALT/SGPT) 16 U/L (12-78) Alkaline Phosphatase 90 U/L (45-117) Troponin I < 0.015 ng/ml (0-0.045) Pro-B-Type Natriuretic Peptide 210 pg/ml (0-1800) Total Protein 7.0 gm/dl (6.4-8.2) Albumin 3.5 gm/dl (3.4-5.0) Globulin 3.5 gm/dl (2.5-4.0) Albumin/Globulin Ratio 1.0 (0.9-2) Laboratory results per my review. Medications Administered Medications (Trade) Dose Ordered Sig/Clinton Route Start Time Stop Time Status Last Admin Dose Admin Furosemide (Lasix Inj) 40 mg NOW STAT IV 06/02/17 10:47 06/02/17 10:49 DC 06/02/17 11:29 40 MG Acetaminophen (Tylenol Tab) 1,000 mg STK-MED ONCE PO 06/02/17 10:57 06/02/17 10:58 DC 06/02/17 10:59 1,000 MG Miscellaneous Information (Nursing Verbal Med Order) 1 ea ONE ONCE N/A 06/02/17 11:15 06/02/17 11:16 DC 06/02/17 11:15 1 EA ECG Indication: SOB/dyspnea Rate (beats per minute): 91 Rhythm: sinus rhythm Findings: ST depression (Inferior, lateral) Comparison ECG Date: Worsening ST depressions in the inferior and lateral leads when compared to EKG from 05/23/17 ED Course ED COURSE: Vital signs were reviewed and showed the patient is hypertensive and tachycardic. The patients medical record was reviewed The above diagnostic studies were performed and reviewed. ED treatments and interventions as stated above. 0937: The patient was evaluated in room A12B. A complete history and physical examination was performed. 1047: Lasix 40 mg IV. 1057: Tylenol 1000 mg PO. 1100: Doxycycline Hyclate 100 mg/Dextrose 110 ml @ 50 mls/hr IV. 1105: Upon reevaluation, the patient is resting comfortably. I discussed my findings with the patient and she understands and agrees with the treatment plan. 1124: I discussed the patients case with Dr. Sigala [facility] Hospitalist. The patient will be further evaluated. 1213: I discussed the patients case with Dr. Galan [facility] Cardiology. The patient will be further evaluated. Based on the patients age, coexisting illnesses, exam and lab findings the decision to treat as an inpatient was made. The patient remained stable while under my care. The patient will be evaluated for further management. Medical Decision Differential diagnoses includes but is not limited to pneumonia, bronchitis, COPD/Asthma exacerbation, pneumothorax, pulmonary embolism, congestive heart failure, acute coronary syndrome Patient is an 87-year-old female who presents to ER for 1 week's worth of redness in the right lower extremity. She also admits to shortness of breath with exertion associated with a 20 pound weight gain over the past 2 weeks. She has increased her Lasix at home by PCP without success. She does have diffuse pitting edema. Chest x-ray supports pulmonary edema. Patient was given IV antibiotics. EKG shows ST depressions in the lateral leads. Based on her symptoms I favor this is secondary to CHF/volume overload in combination with cellulitis. At rest currently denies any chest pain or shortness of breath. Did discuss case with cardiology and internal medicine. Patient was admitted for further workup of her cellulitis and CHF. Medication Reconcilliation Current Medication List: was personally reviewed by me Blood Pressure Screening Patient's blood pressure: Elevated blood pressure Blood pressure disposition: Referred to PCP Consults Time Called: 1120 Consulting Physician: Dr. Sigala [facility] Hospitalist Returned Call: 1124 I discussed the patients case with Dr. Sigala [facility] Hospitalist. The patient will be further evaluated. Additional Consults: Time Called: 1210 Consulted Physician: Dr. Galan [facility] Cardiology Returned Call: 1213 Additional Comments: I discussed the patients case with Dr. Galan [facility] Cardiology. The patient will be further evaluated. Impression Primary Impression: CHF (congestive heart failure) Additional Impression: Cellulitis Scribe Attestation The scribe's documentation has been prepared under my direction and personally reviewed by me in its entirety. I confirm that the note above accurately reflects all work, treatment, procedures, and medical decision making performed by me. Departure Information Dispostion Being Evaluated By Hospitalist Referrals RV. Marino MD (PCP) Patient Instructions My [facility] Problem Qualifiers Primary Impression: CHF (congestive heart failure) Congestive heart failure type: unspecified congestive heart failure type Congestive heart failure chronicity: unspecified congestive heart failure chronicity Qualified Codes: I50.9 - Heart failure, unspecified Additional Impression: Cellulitis Site of cellulitis: unspecified site Qualified Codes: L03.90 - Cellulitis, unspecified
[2017-06-02] MEDS ORDERED: FUROSEMIDE INJ 100 MG in DEXTROSE 5% 100ML 90 ML IV SCH (15:15)
[2017-06-02] MEDS: CEFTRIAXONE SOD INJ 2000 MG in DEXTROSE 5% 50ML IV SCH (15:21)
[2017-06-02 15:55] VITALS: BP 153/46; PULSE 97; TEMP 36.6; O2SAT 95
--- NOTE | 2017-06-02 16:21 | ECHOCARDIOGRAM REPORT ---
*NOTICE TO RECEIVING REPUBLICAN AGENCY This information is strictly Confidential and protected under [place] law. [place] law prohibits you from making any further disclosure of this information unless further disclosure is expressly permitted by the written consent of the person to whom it pertains or is authorized by law. A general authorization for the release of medical or other information is not sufficient for this purpose. Hospital accepts no responsibility if the information is made available to any other person, INCLUDING THE PATIENT. Interpretation Summary * Name: HALI AARON Study Date: 06/02/2017 02:34 PM BP: 149/63 mmHg * Patient Location: 208 HR: 99 * : 1930 (M/d/yyyy) Gender: Female Height: 64 in * Age: 87 yrs Ethnicity: CA Weight: 231 lb * Ordering Physician: Toy Solis * Referring Physician: CARLOS ALAN * Performed By: Elisabeth Coppola RDCS * * Reason For Study: CHF * BSA: 2.1 m2 * -- Conclusions -- * Left ventricular systolic function is normal. * Grade I diastolic dysfunction, (abnormal relaxation pattern). * There is mild mitral annular calcification. * Right ventricular systolic pressure is elevated at 30-40mmHg. * Normal inferior vena cava size and collapsability with sniff indicates a normal right atrial pressure of 3 mmHg * Compared to study from 2009, the pulmonary pressures are lower. Procedure Details * A complete two-dimensional transthoracic echocardiogram was performed (2D, M-mode, Doppler and color flow Doppler). Left Ventricle * The left ventricle is normal in size. * There is normal left ventricular wall thickness. * Ejection Fraction = 60-65%. * Left ventricular systolic function is normal. * Grade I diastolic dysfunction, (abnormal relaxation pattern). * The left ventricular wall motion is normal. Right Ventricle * The right ventricle is normal in size and function. Atria * The left atrial size is normal. * Right atrial size is normal. Mitral Valve * There is mild mitral annular calcification. * There is no mitral regurgitation noted. Tricuspid Valve * The tricuspid valve is not well visualized, but is grossly normal. * There is mild tricuspid regurgitation. * Right ventricular systolic pressure is elevated at 30-40mmHg. Aortic Valve * The aortic valve is normal in structure and function. * The aortic valve is trileaflet. * No hemodynamically significant valvular aortic stenosis. * There is no significant aortic regurgitation. Great Vessels * The aortic root is normal size. Pericardium/Pleural * There is no pericardial effusion. Great Vessels * Normal inferior vena cava size and collapsability with sniff indicates a normal right atrial pressure of 3 mmHg MMode 2D Measurements and Calculations IVSd 1.2 cm IVSs 1.7 cm LVIDd 4.4 cm LVIDs 3.0 cm LVPWd 1.1 cm LVPWs 1.4 cm IVS/LVPW 1.1 FS 32.6 % EDV(Teich) 88.9 ml ESV(Teich) 34.6 ml EF(Teich) 61.1 % EDV(cubed) 86.7 ml ESV(cubed) 26.6 ml EF(cubed) 69.3 % % IVS thick 42.6 % % LVPW thick 31.9 % LV mass(C)d 178.9 grams LV mass(C)dI 86.0 grams/m\S\2 LV mass(C)s 168.6 grams LV mass(C)sI 81.1 grams/m\S\2 SV(Teich) 54.4 ml SI(Teich) 26.1 ml/m\S\2 SV(cubed) 60.1 ml SI(cubed) 28.9 ml/m\S\2 Ao root diam 3.2 cm Ao root area 8.0 cm\S\2 LA dimension 3.0 cm LA/Ao 0.93 LVAd ap4 19.1 cm\S\2 LVLd ap4 6.8 cm EDV(MOD-sp4) 45.4 ml EDV(sp4-el) 45.7 ml LVAs ap4 10.0 cm\S\2 LVLs ap4 5.4 cm ESV(MOD-sp4) 17.0 ml ESV(sp4-el) 15.8 ml EF(MOD-sp4) 62.6 % EF(sp4-el) 65.4 % LVAd ap2 17.1 cm\S\2 LVLd ap2 6.6 cm EDV(MOD-sp2) 36.2 ml EDV(sp2-el) 37.7 ml LVAs ap2 10.0 cm\S\2 LVLs ap2 5.9 cm ESV(MOD-sp2) 14.6 ml ESV(sp2-el) 14.6 ml EF(MOD-sp2) 59.6 % EF(sp2-el) 61.2 % LVLd %diff -2.25 % EDV(MOD-bp) 40.3 ml LVLs %diff 7.9 % ESV(MOD-bp) 16.3 ml EF(MOD-bp) 59.6 % SV(MOD-sp4) 28.4 ml SI(MOD-sp4) 13.7 ml/m\S\2 SV(MOD-sp2) 21.6 ml SI(MOD-sp2) 10.4 ml/m\S\2 SV(MOD-bp) 24.0 ml SI(MOD-bp) 11.5 ml/m\S\2 SV(sp4-el) 29.9 ml SI(sp4-el) 14.4 ml/m\S\2 SV(sp2-el) 23.1 ml SI(sp2-el) 11.1 ml/m\S\2 Doppler Measurements and Calculations MV E max becky 74.2 cm/sec MV A max becky 107.2 cm/sec MV E/A 0.69 MV dec time 0.21 sec Ao V2 max 160.5 cm/sec Ao max PG 10.3 mmHg Ao max PG (full) 3.2 mmHg LV V1 max PG 7.1 mmHg LV V1 max 133.3 cm/sec TR max becky 262.4 cm/sec
--- NOTE | 2017-06-02 16:26 | Cardiology Consultation ---
Cardiology Consultation Date of Consultation: Jun 02, 2017. Requesting Physician: John Reason for Consultation: Dyspnea Pt evaluation today including: conversation w/ patient, physical exam, chart review, lab review, review of studies, review of inpatient medication list, conversation w/ attending History of Present Illness The patient is a medically complex 87-year-old woman who has been experiencing progressive lower extremity edema and dyspnea. She was recently evaluated at [facility] on 2 occasions for will was initially diagnosed as bronchitis and later some lower extremity edema. Her symptoms appear to improve slightly with administration of increased Lasix but she later progressed to worsening edema primarily in the right leg associated with some discomfort. She also reported some worsening dyspnea when lying flat. She was evaluated amount any [facility] Emergency room today admitted for congestive heart failure. Currently the patient claims to be feeling somewhat short of breath. She states this is a chronic complaint perhaps worse recently. She notices it most when she is active but can have episodes at rest as well. Her activity is notably limited by significant back and leg discomfort. She uses a walker for ambulation. With exertion, deep breathing, talking for long periods or even laughing she does have some mild dyspnea and a nonproductive cough. The symptoms have been present for some time without notable improvement or worsening. She has a hospital bed at home and commonly adjusts the height of her head to avoid coughing. She does not describe recent fevers or chills. She does not describe a productive cough. She has some discomfort in her chest that is right-sided in nature and involves a very large area around the right breast. This is been present for some time and is also tender to palpation. She denies other chest pains. She has not noticed any recent palpitations or racing heartbeats. She does have some dizziness which is present mostly in the morning and relieved often with meclizine. She reports having some chronic lower extremity edema but more recently the right leg is become notably swollen and red. She believes she has gained at least 12 lb over the past 2 weeks. Past Medical/Surgical History Spinal stenosis Lower extremity neuropathy Cervical radiculopathy Breast cancer status post right lumpectomy Chronic dizziness Gastroesophageal reflux Hypertension Chronic renal insufficiency Restless leg syndrome Urinary incontinence Venous insufficiency Past surgical history: Appendectomy Cataracts Hemorrhoidectomy Hysterectomy Right breast lumpectomy and Rotator cuff repair Venous ligation Wrist surgery Family History No pertinent family history Noncontributory given her advanced age Social History Smoking Status: Never Smoker History of Alcohol Use: No Currently lives independently Review of Systems Cardiac: + edema She claims to be eating well. Food does not get stuck but she has some trouble swallowing dry foods. She does not have notable coughing with eating. All Other Systems: Reviewed and Negative Allergies Coded Allergies: Levofloxacin (Verified Allergy, Intermediate, red painful skin,itching, burning, 06/02/17) Amoxicillin (Verified Allergy, Unknown, G I UPSET, 06/02/17) Aspirin (Verified Allergy, Unknown, UNKNOWN, 06/02/17) Cefdinir (Verified Allergy, Unknown, UNKNOWN, 06/02/17) Cephalosporins (Verified Allergy, Unknown, G I UPSET, 06/02/17) Iodine (Verified Allergy, Unknown, RASH, 06/02/17) Penicillins (Verified Allergy, Unknown, 06/02/17) Sulfa Drugs (Verified Allergy, Unknown, G I UPSET, 06/02/17) Venlafaxine (Verified Allergy, Unknown, UNKNOWN, 06/02/17) Codeine (Verified Adverse Reaction, Mild, GI UPSET, 06/02/17) Tapentadol (Verified Adverse Reaction, Unknown, "drunk as a hoot owl", ) pt/gmg Medications Current Inpatient Medications Medications (Trade) Dose Ordered Sig/Clinton Route Start Time Stop Time Status Last Admin Dose Admin Heparin Sodium (Porcine) (Heparin Sq 5000 Unit/0.5ml) 5,000 unit Q8 SQ 06/02/17 22:00 07/02/17 21:59 Acetaminophen (Tylenol Tab) 650 mg Q4H PRN PO 06/02/17 12:15 07/02/17 12:14 Al Hydrox/Mg Hydrox/Simethicone (Maalox Max Susp) 15 ml Q4H PRN PO 06/02/17 12:15 07/02/17 12:14 Magnesium Hydroxide (Milk Of Magnesia Susp) 30 ml Q12H PRN PO 06/02/17 12:15 07/02/17 12:14 Zolpidem Tartrate (Ambien Tab) 5 mg HSZ PRN PO 06/02/17 12:15 07/02/17 12:14 Nitroglycerin (Nitrostat Tab) 0.4 mg UD PRN SL 06/02/17 12:15 07/02/17 12:14 Polyethylene (Miralax Powder Packet) 17 gm DAILY PRN PO 06/02/17 12:15 07/02/17 12:14 Furosemide 100 mg/ Dextrose 100 ml @ 4 mls/hr Q24H IV 06/02/17 15:15 07/02/17 15:14 06/02/17 15:58 4 MLS/HR Lactobacillus Acidophilus (Lactinex Granules Pack) 1 gm TIDM PO 06/02/17 16:45 07/02/17 16:44 Ketoconazole (Nizoral 2% Crm) 1 appln BID EXT 06/02/17 21:00 08/03/17 12:15 Salmeterol Xinafoate/ Fluticasone (Advair Diskus 250/50 Inh) 1 puff BID PRN INH 06/02/17 12:30 07/02/17 12:29 Fluticasone Propionate (Flonase Nasal Thor) 2 sprays DAILY MARTY 06/03/17 09:00 07/03/17 08:59 Gabapentin (Neurontin Cap) 300 mg TID PO 06/02/17 21:00 07/02/17 20:59 Magnesium Oxide (Mag-Ox Tab) 400 mg DAILY PO 06/03/17 09:00 07/03/17 08:59 Meclizine HCl (Antivert Tab) 25 mg TID PRN PO 06/02/17 12:30 07/02/17 12:29 Montelukast Sodium (Singulair Tab) 10 mg HS PO 06/02/17 21:00 07/02/17 20:59 Pantoprazole Sodium (Protonix Tab) 40 mg DAILY PO 06/03/17 09:00 07/03/17 08:59 Pramipexole Dihydrochloride (miraPEX TAB) 1 mg BID PO 06/02/17 21:00 07/02/17 20:59 Carvedilol (Coreg Tab) 6.25 mg BID PO 06/02/17 21:00 07/02/17 20:59 Ceftriaxone Sodium 2000 mg/ Dextrose 70 ml @ 140 mls/hr Q24H IV 06/02/17 14:30 06/12/17 14:29 06/02/17 15:21 140 MLS/HR Physical Exam Vital Signs Past 12 Hours Date Time Temp Pulse Resp B/P (MAP) Pulse Ox O2 Delivery O2 Flow Rate FiO2 06/02/17 15:55 36.6 97 24 153/46 (81) 95 Room Air 06/02/17 14:04 36.3 91 20 163/62 94 Room Air 06/02/17 11:36 99 20 149/63 94 Room Air 06/02/17 10:10 90 06/02/17 10:08 96 26 138/57 95 Room Air 06/02/17 10:00 95 Room Air 06/02/17 10:00 95 Room Air 06/02/17 09:20 36.3 92 20 162/72 94 Room Air She is alert and oriented x3. Mood affect appear normal. She answered all questions appropriately. Morbidly obese HEENT: Sclerae are anicteric. Pupils are equal and reactive to light and accommodation. Extraocular movements were intact. Neuro: Cranial nerves intact Neck: Examination of the submandibular region did not reveal any significant lymphadenopathy. Carotids are palpable bilaterally and free of bruits on auscultation. There was no evidence of jugular venous distention. The thyroid was not enlarged. Lungs: Lungs are clear to auscultation bilaterally. There are no rales wheezes or rhonchi. She has normal respiratory effort without use of accessory muscles. There is normal pulmonary excursion. She has some coughing with deep inspiration and some upper airway congestion. Chest: Patient was tender to palpation along the right sternoclavicular joint. Cardiac: The rhythm was regular. S1 and S2 were normal. There are no murmurs on examination. The PMI was not markedly displaced on palpation. Abdomen: The abdomen was soft and nontender. Extremities: Patient has bilateral radial pulses that are equal in intensity. There is no evidence cyanosis or clubbing. She had moderate lower extremity edema. Right was worse than the left. There was erythema on the right leg below the knee Data Laboratory Results: Last 24 Hours Test 06/02/17 09:45 White Blood Count 8.52 K/uL Red Blood Count 3.87 M/uL Hemoglobin 11.2 g/dL Hematocrit 35.4 % Mean Corpuscular Volume 91.5 fL Mean Corpuscular Hemoglobin 28.9 pg Mean Corpuscular Hemoglobin Concent 31.6 g/dl Platelet Count 194 K/uL Mean Platelet Volume 10.9 fL Neutrophils (%) (Auto) 74.7 % Lymphocytes (%) (Auto) 14.8 % Monocytes (%) (Auto) 7.5 % Eosinophils (%) (Auto) 1.9 % Basophils (%) (Auto) 0.4 % Neutrophils # (Auto) 6.37 K/uL Lymphocytes # (Auto) 1.26 K/uL Monocytes # (Auto) 0.64 K/uL Eosinophils # (Auto) 0.16 K/uL Basophils # (Auto) 0.03 K/uL RDW Standard Deviation 53.8 fL RDW Coefficient of Variation 16.1 % Immature Granulocyte % (Auto) 0.7 % Immature Granulocyte # (Auto) 0.06 K/uL Prothrombin Time 9.8 SECONDS Prothromb Time International Ratio 0.9 Activated Partial Thromboplast Time 27.8 SECONDS Partial Thromboplastin Ratio 1.1 Sodium Level 138 mmol/L Potassium Level 3.9 mmol/L Chloride Level 104 mmol/L Carbon Dioxide Level 30 mmol/L Anion Gap 4.0 mmol/L Blood Urea Nitrogen 29 mg/dl Creatinine 1.70 mg/dl Est Creatinine Clear Calc Drug Dose 27.8 ml/min Estimated GFR () 30.9 Estimated GFR (Non- 26.6 BUN/Creatinine Ratio 16.9 Random Glucose 129 mg/dl Calcium Level 9.1 mg/dl Total Bilirubin 0.3 mg/dl Aspartate Amino Transf (AST/SGOT) 15 U/L Alanine Aminotransferase (ALT/SGPT) 16 U/L Alkaline Phosphatase 90 U/L Troponin I < 0.015 ng/ml Pro-B-Type Natriuretic Peptide 210 pg/ml Total Protein 7.0 gm/dl Albumin 3.5 gm/dl Globulin 3.5 gm/dl Albumin/Globulin Ratio 1.0 Imaging: Chest x-ray obtained today revealed vascular prominence but no overt pulmonary congestion. EKG: Normal sinus rhythm with nonspecific ST and T-wave changes Telemetry reviewed: Sinus rhythm with rare PVCs Echocardiogram performed today revealed preserved LV and RV function. She had stage I diastolic dysfunction. There was no significant valvular heart disease. There is no plethora of the IVC. Assessment & Plan 1. Dyspnea: After discussion with the patient it is unclear whether she has had an acute worsening of her breathing trouble. Seems that she has an element of chronic breathing difficulty that is associated with activity and certain positions. This appears to be fairly mild in nature. She also has some coughing which can be positional or occur in the situations noted above. She certainly has an element of edema and weight gain. However, her chest x-ray did not reveal overt pulmonary edema. Her lung examination is not consistent with severe pulmonary edema. Her N terminal proBNP is quite low suggesting she does not have left ventricular failure resulting in pulmonary congestion. Her echocardiogram reveals normal function and there is no evidence of high right- sided cardiac pressures. This would suggest an alternate diagnosis for her symptoms of dyspnea and edema. She is reported to have an element of venous insufficiency and possibly lymphedema which may contribute to her lower extremity edema and weight gain. This may have occurred in conjunction with a cellulitis which makes the right leg worse than the left. I think her cough is more likely related to an upper airway process such as bronchitis or laryngeal phenomenon. I do agree with an attempt at diuresis given her obvious edema. Caution will need to be taken in the setting of renal insufficiency. At this point we will continue to follow her progress in the hospital. She is not appear to have an acute cardiac problem that requires intervention currently.
[2017-06-02] MEDS: LACTOBACILLUS ACIDOPHILUS 1 GM PACK PO SCH (16:33)
[2017-06-02] MEDS: ACETAMINOPHEN 325 MG TAB PO PRN (18:29)
[2017-06-02 19:12] VITALS: BP 137/55; PULSE 95; TEMP 36.6; O2SAT 93
[2017-06-02] MEDS: MONTELUKAST SOD 10 MG TAB PO SCH (19:44)
[2017-06-02] MEDS: KETOCONAZOLE 2% CR 15 GM TUBE EXT SCH (19:45)
[2017-06-02] MEDS: PRAMIPEXOLE DIHYDROCHLORIDE 0.5 MG TAB PO SCH (19:45)
[2017-06-02] MEDS: GABAPENTIN 300 MG CAP PO SCH (19:45)
[2017-06-02] MEDS: CARVEDILOL 6.25 MG TAB PO SCH (19:45)
[2017-06-02] MEDS: HEPARIN SOD 5000 UNIT/0.5 ML CARP SQ SCH (19:47)
[2017-06-02] MEDS: OXYCODONE/ACETAMINOPHEN 5-325 TAB PO PRN (20:00)
[2017-06-02] MEDS ORDERED: LEVALBUTEROL/IPRATROPIUM NEB INH SCH (21:00)
--- NOTE | 2017-06-02 21:12 | DIAGNOSTIC IMAGING REPORT ---
RIGHT LOWER EXTREMITY VENOUS DOPPLER HISTORY: Right leg swelling COMPARISON STUDY: Venous Doppler 11/04/2016. FINDINGS: There is normal compressibility, flow, and augmentation within the right lower extremity deep venous system. IMPRESSION: No DVT within the right lower extremity Electronically signed by: Tim Mills M.D. 06/02/2017 9:10 PM Dictated Date/Time: 06/02/2017 9:10 PM
[2017-06-02] MEDS: LEVALBUTEROL 1.25MG/0.5ML NEB INH SCH (21:41)
[2017-06-02] MEDS: IPRATROPIUM BROMIDE NEB SOLN 0.02% 2.5 ML VIAL INH SCH (21:41)
[2017-06-02 21:43] VITALS: PULSE 99; O2SAT 91
[2017-06-02 23:16] VITALS: BP 126/75; PULSE 92; TEMP 37.2; O2SAT 92
[2017-06-03] VITALS (8 sets, daily range): BP systolic 128–161; BP diastolic 59–82; PULSE 88–96; TEMP 36.6–37.2; O2SAT 91–96
[2017-06-03] MEDS: LEVALBUTEROL 1.25MG/0.5ML NEB INH SCH ×4 (01:40→19:10)
[2017-06-03] MEDS: IPRATROPIUM BROMIDE NEB SOLN 0.02% 2.5 ML VIAL INH SCH ×4 (01:40→19:10)
[2017-06-03] MEDS: HEPARIN SOD 5000 UNIT/0.5 ML CARP SQ SCH ×3 (06:22→21:19)
[2017-06-03 06:29] LABS: BASO % 0.3 %; BASO ABS # 0.02 K/uL (0-0.2); EOS % 2.9 %; HEMATOCRIT 33.6 % (37-47); HEMOGLOBIN 10.4 g/dL (12.0-16.0); IG# 0.04 K/uL (0.00-0.02); LYMPH % 22.5 %; LYMPH ABS # 1.57 K/uL (1.2-3.4); MEAN CELL VOLUME 91.6 fL (80-100); MEAN CORPUSCULAR HEMOGLOBIN 28.3 pg (25-34); MEAN PLATELET VOLUME 11.3 fL (7.4-10.4); MONO % 9.2 %; MONO ABS # 0.64 K/uL (0.11-0.59); NEUT % 64.5 %; NEUT ABS # 4.51 K/uL (1.4-6.5); PLATELET COUNT 184 K/uL (130-400); RED CELL DISTRIBUTION WIDTH CV 15.9 % (11.5-14.5); RED CELL DISTRIBUTION WIDTH SD 53.6 fL (36.4-46.3); WHITE BLOOD COUNT 6.98 K/uL (4.8-10.8)
[2017-06-03 07:01] LABS: HEMOGLOBIN A1C 5.6 % (4.5-5.6)
[2017-06-03 07:03] LABS: ALBUMIN 3.4 gm/dl (3.4-5.0); ALT/SGPT 15 U/L (12-78); AST/SGOT 14 U/L (15-37); BLOOD UREA NITROGEN 34 mg/dl (7-18); CALCIUM 8.7 mg/dl (8.5-10.1); CARBON DIOXIDE 33 mmol/L (21-32); CHOLESTEROL 141 mg/dl (0-200); CREATININE 1.98 mg/dl (0.60-1.20); GLUCOSE 108 mg/dl (70-99); POTASSIUM 3.3 mmol/L (3.5-5.1); SODIUM 140 mmol/L (136-145)
[2017-06-03 07:05] LABS: ALKALINE PHOSPHATASE 75 U/L (45-117); LDL CHOLESTEROL CALCULATED 67 mg/dl; PHOSPHORUS 3.8 mg/dl (2.5-4.9); TOTAL PROTEIN 6.6 gm/dl (6.4-8.2)
--- NOTE | 2017-06-03 08:27 | Clinical Documentation Query ---
CLINICAL DOCUMENTATION QUERY 87 year old female who presents to the Emergency Room with complaints of worsening swelling to her right leg. 15lb weight gain. CHF appears to be ruled out by cardiology. In your clinical opinion is this patient also being managed for: ( ) Acute bronchitis treated with IV Doxycycline, Levofloxacin, & Duonebs (x ) Not Agree ( ) Other explanation of clinical findings (Please Explain) ( ) Unable to determine (Please Define) ( ) Need to Discuss The medical record reflects the following clinical findings, treatment, and risk factors. Clinical Indicators: Lung exam reveals + cough, + shortness of breath, + dyspnea on exertion, + dyspnea at rest Treatment: IV Doxycycline, IV Levofloxacin, & Duonebs Risk Factors: Age, asthma, Please clarify and document your clinical opinion in the progress notes and discharge summary. Terms such as "probable", "suspected", "likely", "questionable", "possible", or "still to be ruled out" are acceptable. IF IN AGREEMENT, YOU MUST DOCUMENT ABOVE DIAGNOSTIC STATEMENT IN DAILY PROGRESS NOTES AND DISCHARGE SUMMARY. This document is not part of the patient's record. Thank You, Luis Miguel Gipson, JUSTIN [phone]
[2017-06-03] MEDS: LACTOBACILLUS ACIDOPHILUS 1 GM PACK PO SCH ×3 (08:49→16:52)
[2017-06-03] MEDS: GABAPENTIN 300 MG CAP PO SCH ×3 (08:49→21:18)
[2017-06-03] MEDS: PRAMIPEXOLE DIHYDROCHLORIDE 0.5 MG TAB PO SCH ×2 (08:49→21:18)
[2017-06-03] MEDS: MAGNESIUM OXIDE 400 MG TAB PO SCH (08:50)
[2017-06-03] MEDS: PANTOprazole SOD 40 MG TAB PO SCH (08:50)
[2017-06-03] MEDS: CARVEDILOL 6.25 MG TAB PO SCH ×2 (08:50→21:18)
[2017-06-03] MEDS: KETOCONAZOLE 2% CR 15 GM TUBE EXT SCH ×2 (08:50→21:17)
[2017-06-03] MEDS: FLUTICASONE PROPIONATE NA SPR 16 GM BTL NAE SCH (08:58)
[2017-06-03] MEDS: OXYCODONE/ACETAMINOPHEN 5-325 TAB PO PRN ×2 (08:58→19:26)
--- NOTE | 2017-06-03 10:21 | Nephrology Consultation ---
Nephrology Consultation Date & Providers Date of Consultation: Jun 03, 2017. Primary Care Provider: RV. Marino MD Referring Provider: Reason for Consultation Chronic kidney disease History of Present Illness Sahra Pan is an 87-year-old female with obesity (BMI 38), chronic lower extremity edema/lymphedema, hypertension, spinal stenosis, neuropathy, PMR, asthma and chronic kidney disease. She has CKD IV with an estimated glomerular filtration rate of approximately 25 ml/minute. This is based on a serum creatinine ranging from 1.7 to 2.1 mg/dL since 2013. Sahra has never been previously evaluated by a shoeblack. She was scheduled to establish in the clinic today but the appointment was canceled due to her inpatient status. The patient presented to the ED at [facility] yesterday with shortness of breath, increasing orthopnea, chest pain and a 15 lbs weight gain. She has been started on IV diuretics. [facility] provides lymphedema treatment for her lower extremities and had encouraged Sahra to be evaluated for right lower extremity cellulitis. Medical history is also notable for nocturnal hypoxia and HARJINDER. She was evaluated by Dr. Titus in the sleep clinic in the past. Sahar states that she started the process to obtain a BPAP machine to use overnight from [facility] a few years ago but she never followed through. Cardiology consultation was provided. EKG reviewed. TTE obtained. This study documented normal LV and RV function with stage 1 diastolic dysfunction. There was no significant valvular heart disease. IVC was not significantly dilated. Sahra lives alone in [facility]. She has 2 sons. One son lives in [place] (Bernardo) and one in [place] (Kurt). Both visit regularly. Her oldest son (Kurt) is her reported POA. Sahra states that she does have a living will. She does not drive. She relies of her sons from transportation and they also provide her groceries. Sahra's primary concern at the time of my evaluation is pain in her right lower extremity. She reports significant induration and tenderness in the mid sanders. She has been concerned about fluid retention and bulllous changes. She was managing volume status with furosemide 20 mg daily at home until 1 week ago. For the past week, she has been taking furosemide 80 mg daily. She did not notice a significant improvement with the adjustment in her medication. On admission, she was given 40 mg IV furosemide. Negative fluid balance of 1.5 L documented overnight. Edema has shown early evidence of improvement. She has also been started on ceftriaxone for cellulitis. Sahra reports poor sleep quality. She notes that she sleeps frequently throughout the day. Past Medical/Surgical History Medical: Obesity (BMI 38) Asthma HARJINDER/nocturnal hypoxia - untreated Hypertension Spinal stenosis Neuropathy PMR Raynaud's syndrome CKD III-IV Recent bronchitis treated with doxycycline History of infiltrating ductal breast cancer (ER+, HER2+) treated with resection Surgical: Appendectomy, lumpectomy, hysterectomy Allergies Coded Allergies: Levofloxacin (Verified Allergy, Intermediate, red painful skin,itching, burning, 06/02/17) Amoxicillin (Verified Allergy, Unknown, G I UPSET, 06/02/17) Aspirin (Verified Allergy, Unknown, UNKNOWN, 06/02/17) Cefdinir (Verified Allergy, Unknown, UNKNOWN, 06/02/17) Cephalosporins (Verified Allergy, Unknown, G I UPSET, 06/02/17) Iodine (Verified Allergy, Unknown, RASH, 06/02/17) Penicillins (Verified Allergy, Unknown, 06/02/17) Sulfa Drugs (Verified Allergy, Unknown, G I UPSET, 06/02/17) Venlafaxine (Verified Allergy, Unknown, UNKNOWN, 06/02/17) Codeine (Verified Adverse Reaction, Mild, GI UPSET, 06/02/17) Tapentadol (Verified Adverse Reaction, Unknown, "drunk as a hoot owl", ) pt/gmg Inpatient Medications Current Inpatient Medications Medications (Trade) Dose Ordered Sig/[place] Route Start Time Stop Time Status Last Admin Dose Admin Heparin Sodium (Porcine) (Heparin Sq 5000 Unit/0.5ml) 5,000 unit Q8 SQ 06/02/17 22:00 07/02/17 21:59 06/03/17 06:22 5,000 UNIT Acetaminophen (Tylenol Tab) 650 mg Q4H PRN PO 06/02/17 12:15 07/02/17 12:14 06/02/17 18:29 650 MG Al Hydrox/Mg Hydrox/Simethicone (Maalox Max Susp) 15 ml Q4H PRN PO 06/02/17 12:15 07/02/17 12:14 Magnesium Hydroxide (Milk Of Magnesia Susp) 30 ml Q12H PRN PO 06/02/17 12:15 07/02/17 12:14 Zolpidem Tartrate (Ambien Tab) 5 mg HSZ PRN PO 06/02/17 12:15 07/02/17 12:14 Nitroglycerin (Nitrostat Tab) 0.4 mg UD PRN SL 06/02/17 12:15 07/02/17 12:14 Polyethylene (Miralax Powder Packet) 17 gm DAILY PRN PO 06/02/17 12:15 07/02/17 12:14 Lactobacillus Acidophilus (Lactinex Granules Pack) 1 gm TIDM PO 06/02/17 16:45 07/02/17 16:44 06/03/17 08:49 1 GM Ketoconazole (Nizoral 2% Crm) 1 appln BID EXT 06/02/17 21:00 08/03/17 12:15 06/03/17 08:50 1 APPLN Salmeterol Xinafoate/ Fluticasone (Advair Diskus 250/50 Inh) 1 puff BID PRN INH 06/02/17 12:30 07/02/17 12:29 Fluticasone Propionate (Flonase Nasal [place]) 2 sprays DAILY MARTY 06/03/17 09:00 07/03/17 08:59 Gabapentin (Neurontin Cap) 300 mg TID PO 06/02/17 21:00 07/02/17 20:59 06/03/17 08:49 300 MG Magnesium Oxide (Mag-Ox Tab) 400 mg DAILY PO 06/03/17 09:00 07/03/17 08:59 06/03/17 08:50 400 MG Meclizine HCl (Antivert Tab) 25 mg TID PRN PO 06/02/17 12:30 07/02/17 12:29 Montelukast Sodium (Singulair Tab) 10 mg HS PO 06/02/17 21:00 07/02/17 20:59 06/02/17 19:44 10 MG Pantoprazole Sodium (Protonix Tab) 40 mg DAILY PO 06/03/17 09:00 07/03/17 08:59 06/03/17 08:50 40 MG Pramipexole Dihydrochloride (miraPEX TAB) 1 mg BID PO 06/02/17 21:00 07/02/17 20:59 06/03/17 08:49 1 MG Carvedilol (Coreg Tab) 6.25 mg BID PO 06/02/17 21:00 07/02/17 20:59 06/03/17 08:50 6.25 MG Ceftriaxone Sodium 2000 mg/ Dextrose 70 ml @ 140 mls/hr Q24H IV 06/02/17 14:30 06/12/17 14:29 06/02/17 15:21 140 MLS/HR Ipratropium [place] (Atrovent 0.02% 0.5MG/2.5ML Neb) 0.5 mg Q6R INH 06/02/17 21:00 07/02/17 20:59 06/03/17 07:07 0.5 MG Levalbuterol (Xopenex 1.25MG/ 0.5ML Neb) 1.25 mg Q6R INH 06/02/17 21:00 07/02/17 20:59 06/03/17 07:07 1.25 MG Oxycodone/ Acetaminophen (Percocet 5-325mg Tab) 1 tab Q6 PRN PO 06/02/17 20:00 06/16/17 19:59 06/03/17 08:58 1 TAB Family History No pertinent family history Social History Smoking Status: Never Smoker Drug Use: none Marital Status: Housing Status: lives alone Occupation: retired Review of Systems Constitutional: No fever, No chills A complete review of systems was performed. Pertinent positives are noted above. All other systems are negative. Physical Exam Date Time Temp Pulse Resp B/P (MAP) Pulse Ox O2 Delivery O2 Flow Rate FiO2 06/03/17 07:07 90 16 95 Room Air 06/03/17 04:00 Room Air 06/03/17 03:06 37.2 93 20 161/82 (108) 93 Room Air 06/02/17 23:59 Room Air 06/02/17 23:16 37.2 92 21 126/75 (92) 92 Room Air 06/02/17 21:43 99 16 91 Room Air 06/02/17 20:00 Room Air 06/02/17 19:12 36.6 95 18 137/55 (82) 93 Room Air 06/02/17 16:00 Room Air 06/02/17 15:55 36.6 97 24 153/46 (81) 95 Room Air 06/02/17 14:04 36.3 91 20 163/62 94 Room Air 06/02/17 11:36 99 20 149/63 94 Room Air 06/02/17 10:10 90 06/02/17 10:08 96 26 138/57 95 Room Air 06/02/17 10:00 95 Room Air 06/02/17 10:00 95 Room Air General Appearance: no apparent distress, + obese Head: normocephalic, atraumatic Eyes: normal inspection, sclerae normal ENT: normal ENT inspection, pharynx normal Neck: supple, no JVD Respiratory/Chest: lungs clear, no respiratory distress, no accessory muscle use Cardiovascular: regular rate, rhythm, no gallop, no murmur Abdomen/GI: non tender, soft, + distended Back: no CVA tenderness Extremities/Musculoskelatal: normal inspection, + pedal edema (+1 edema to the mid sanders with induration and chronic stasis changes, erythema and warmth on the right LE) Neurologic/Psych: alert, normal mood/affect Skin: + pertinent finding (right lower extremity with localized induration and warmth ) Laboratory Results Last 24 Hours Test 06/02/17 15:16 06/02/17 19:18 06/03/17 00:33 06/03/17 06:01 Urine Color YELLOW Urine Appearance CLEAR Urine pH 7.0 Urine Specific [place] 1.011 Urine Protein NEG Urine Glucose (UA) NEG Urine Ketones NEG Urine Occult Blood NEG Urine Nitrite NEG Urine Bilirubin NEG Urine Urobilinogen NEG Urine Leukocyte Esterase NEG Total Creatine Kinase 59 U/L 66 U/L 66 U/L Troponin I < 0.015 ng/ml < 0.015 ng/ml < 0.015 ng/ml White Blood Count 6.98 K/uL Red Blood Count 3.67 M/uL Hemoglobin 10.4 g/dL Hematocrit 33.6 % Mean Corpuscular Volume 91.6 fL Mean Corpuscular Hemoglobin 28.3 pg Mean Corpuscular Hemoglobin Concent 31.0 g/dl Platelet Count 184 K/uL Mean Platelet Volume 11.3 fL Neutrophils (%) (Auto) 64.5 % Lymphocytes (%) (Auto) 22.5 % Monocytes (%) (Auto) 9.2 % Eosinophils (%) (Auto) 2.9 % Basophils (%) (Auto) 0.3 % Neutrophils # (Auto) 4.51 K/uL Lymphocytes # (Auto) 1.57 K/uL Monocytes # (Auto) 0.64 K/uL Eosinophils # (Auto) 0.20 K/uL Basophils # (Auto) 0.02 K/uL RDW Standard Deviation 53.6 fL RDW Coefficient of Variation 15.9 % Immature Granulocyte % (Auto) 0.6 % Immature Granulocyte # (Auto) 0.04 K/uL Sodium Level 140 mmol/L Potassium Level 3.3 mmol/L Chloride Level 102 mmol/L Carbon Dioxide Level 33 mmol/L Anion Gap 5.0 mmol/L Blood Urea Nitrogen 34 mg/dl Creatinine 1.98 mg/dl Est Creatinine Clear Calc Drug Dose 23.0 ml/min Estimated GFR () 25.7 Estimated GFR (Non- 22.2 BUN/Creatinine Ratio 17.0 Random Glucose 108 mg/dl Estimated Average Glucose 114 mg/dl Hemoglobin A1c 5.6 % Calcium Level 8.7 mg/dl Phosphorus Level 3.8 mg/dl Magnesium Level 2.2 mg/dl Total Bilirubin 0.4 mg/dl Aspartate Amino Transf (AST/SGOT) 14 U/L Alanine Aminotransferase (ALT/SGPT) 15 U/L Alkaline Phosphatase 75 U/L Total Protein 6.6 gm/dl Albumin 3.4 gm/dl Globulin 3.2 gm/dl Albumin/Globulin Ratio 1.1 Triglycerides Level 150 mg/dl Cholesterol Level 141 mg/dl HDL Cholesterol 44 mg/dl LDL Cholesterol, Calculated 67 mg/dl VLDL Cholesterol, Calculated 30 mg/dl Cholesterol/HDL Ratio 3.2 Test 06/03/17 08:51 Arterial Blood pH 7.44 Arterial Blood Partial Pressure CO2 46 mmHg Arterial Blood Partial Pressure O2 65 mm/Hg Arterial Blood HCO3 30 mmol/L Arterial Blood Oxygen Saturation 90.8 % Arterial Blood Base Excess 5.1 mEq/L Arterial Blood Gas Delivery RA Piter Test POS Impression (1) CKD (chronic kidney disease), stage IV (2) HARJINDER (obstructive sleep apnea) (3) Venous insufficiency (4) Diastolic CHF (5) Lymphedema Sahra is an 87-year-old female with CKD IV. Urine analysis is bland. She does not have significant proteinuria. CKD can be attributed to nephrosclerosis and microvascular disease as well as senescence. CT of the abdomen from 2013 is available for review which is notable for at least mild cortical atrophy. Cyst formation noted in the right kidney. Sahra has chronic lower extremity lymphedema and venous insufficiency. She suffers from obesity and untreated HARJINDER. She has diastolic dysfunction. She also has mild anemia. All of these factors including her renal dysfunction likely contribute to her lower extremity edema. Baseline activity tolerance is limited due to OA/DJD and spinal stenosis. Serum albumin is normal. Laboratory findings do not suggest chronic liver disease. Sahra is being treated for her edema with IV diuretics. Volume status is improving. I suspect there will be some compromise of renal function to maintain appropriate volume status. Currently blood pressure is appropriate. She is also receiving IV antibiotics for cellulitis. Lower extremity duplex was negative for DVT Recommendations -- Agree with diuretic use to maintain a net negative fluid balance (furosemide 40 mg daily) -- Monitor metabolic profile daily while inpatient -- Document I/O's -- Evaluation for NBIPAP -- Sodium restricted diet -- Aspirin 81 mg daily -- Compression stockings to LE and keep feet elevated -- Early PT involvement -- Medications are currently appropriately dosed for renal function -- Avoid XIOMY/ARB, avoid NSAIDs
--- NOTE | 2017-06-03 13:10 | Cardiology Follow-Up ---
Subjective Date of Service: Jun 03, 2017. Pt evaluation today including: conversation w/ patient, physical exam, chart review, lab review, review of studies, review of inpatient medication list History of Present Illness This morning the patient complains primarily of right leg discomfort. She had some relief last night with narcotic administration. She also complains of a cough which has been worse since hospitalization. It is unclear whether this responds well to bronchodilators. Social History Smoking Status: Never Smoker History of Alcohol Use: No Review of Systems Cardiac: + edema She claims to be eating well. Food does not get stuck but she has some trouble swallowing dry foods. She does not have notable coughing with eating. Objective Vital Signs Past 12 Hours Date Time Temp Pulse Resp B/P (MAP) Pulse Ox O2 Delivery O2 Flow Rate FiO2 06/03/17 11:52 36.6 91 20 144/73 (96) 91 Room Air 06/03/17 07:07 90 16 95 Room Air 06/03/17 04:00 Room Air 06/03/17 03:06 37.2 93 20 161/82 (108) 93 Room Air Last Recorded Weight-Kilograms: 99.700 Physical Exam She is alert and oriented x3. Mood affect appear normal. She answered all questions appropriately. Morbidly obese HEENT: Sclerae are anicteric. Pupils are equal and reactive to light and accommodation. Extraocular movements were intact. Neuro: Cranial nerves intact Neck: Examination of the submandibular region did not reveal any significant lymphadenopathy. Carotids are palpable bilaterally and free of bruits on auscultation. There was no evidence of jugular venous distention. The thyroid was not enlarged. Lungs: Lungs are clear to auscultation bilaterally. There are no rales wheezes or rhonchi. She has normal respiratory effort without use of accessory muscles. There is normal pulmonary excursion. She has a lot of upper airway congestion which clears to some degree with coughing. Chest: Patient was tender to palpation along the right sternoclavicular joint. Cardiac: The rhythm was regular. S1 and S2 were normal. There are no murmurs on examination. The PMI was not markedly displaced on palpation. Abdomen: The abdomen was soft and nontender. Extremities: Patient has bilateral radial pulses that are equal in intensity. There is no evidence cyanosis or clubbing. She had moderate lower extremity edema. Right was worse than the left. There was erythema on the right leg below the knee Data Laboratory Results: Last 24 Hours Test 06/02/17 15:16 06/02/17 19:18 06/03/17 00:33 06/03/17 06:01 Urine Color YELLOW Urine Appearance CLEAR Urine pH 7.0 Urine Specific [place] 1.011 Urine Protein NEG Urine Glucose (UA) NEG Urine Ketones NEG Urine Occult Blood NEG Urine Nitrite NEG Urine Bilirubin NEG Urine Urobilinogen NEG Urine Leukocyte Esterase NEG Total Creatine Kinase 59 U/L 66 U/L 66 U/L Troponin I < 0.015 ng/ml < 0.015 ng/ml < 0.015 ng/ml White Blood Count 6.98 K/uL Red Blood Count 3.67 M/uL Hemoglobin 10.4 g/dL Hematocrit 33.6 % Mean Corpuscular Volume 91.6 fL Mean Corpuscular Hemoglobin 28.3 pg Mean Corpuscular Hemoglobin Concent 31.0 g/dl Platelet Count 184 K/uL Mean Platelet Volume 11.3 fL Neutrophils (%) (Auto) 64.5 % Lymphocytes (%) (Auto) 22.5 % Monocytes (%) (Auto) 9.2 % Eosinophils (%) (Auto) 2.9 % Basophils (%) (Auto) 0.3 % Neutrophils # (Auto) 4.51 K/uL Lymphocytes # (Auto) 1.57 K/uL Monocytes # (Auto) 0.64 K/uL Eosinophils # (Auto) 0.20 K/uL Basophils # (Auto) 0.02 K/uL RDW Standard Deviation 53.6 fL RDW Coefficient of Variation 15.9 % Immature Granulocyte % (Auto) 0.6 % Immature Granulocyte # (Auto) 0.04 K/uL Sodium Level 140 mmol/L Potassium Level 3.3 mmol/L Chloride Level 102 mmol/L Carbon Dioxide Level 33 mmol/L Anion Gap 5.0 mmol/L Blood Urea Nitrogen 34 mg/dl Creatinine 1.98 mg/dl Est Creatinine Clear Calc Drug Dose 23.0 ml/min Estimated GFR () 25.7 Estimated GFR (Non- 22.2 BUN/Creatinine Ratio 17.0 Random Glucose 108 mg/dl Estimated Average Glucose 114 mg/dl Hemoglobin A1c 5.6 % Calcium Level 8.7 mg/dl Phosphorus Level 3.8 mg/dl Magnesium Level 2.2 mg/dl Total Bilirubin 0.4 mg/dl Aspartate Amino Transf (AST/SGOT) 14 U/L Alanine Aminotransferase (ALT/SGPT) 15 U/L Alkaline Phosphatase 75 U/L Total Protein 6.6 gm/dl Albumin 3.4 gm/dl Globulin 3.2 gm/dl Albumin/Globulin Ratio 1.1 Triglycerides Level 150 mg/dl Cholesterol Level 141 mg/dl HDL Cholesterol 44 mg/dl LDL Cholesterol, Calculated 67 mg/dl VLDL Cholesterol, Calculated 30 mg/dl Cholesterol/HDL Ratio 3.2 Test 06/03/17 08:51 06/03/17 12:10 Arterial Blood pH 7.44 Arterial Blood Partial Pressure CO2 46 mmHg Arterial Blood Partial Pressure O2 65 mm/Hg Arterial Blood HCO3 30 mmol/L Arterial Blood Oxygen Saturation 90.8 % Arterial Blood Base Excess 5.1 mEq/L Arterial Blood Gas Delivery RA Piter Test POS Total Creatine Kinase 80 U/L Troponin I < 0.015 ng/ml Telemetry reviewed: Sinus rhythm with sinus tachycardia Assessment and Plan 1. Edema: Patient did affect a diuresis yesterday. There is no clinical improvement in her edema. Once again, no specific cardiac intervention which is required currently. Her edema is likely multifactorial and can be treated symptomatically with continued diuresis. Renal function will need to be monitored in this setting. At this point we will sign off. If there are other cardiac issues or changes in the patient's condition which require our input please contact Dr. Fontenot over the weekend as he will be the covering lever tender.
[2017-06-03] MEDS ORDERED: NURSING VERBAL MED ORDER ONE (14:30)
[2017-06-03] MEDS ORDERED: FUROSEMIDE INJ 20 MG in SYRINGE 0 ML IV ONE (15:15)
--- NOTE | 2017-06-03 15:24 | Hospitalist Progress Note ---
Hospitalist Progress Note Date of Service Jun 03, 2017. (Windy Gipson, CHERYLC) Subjective Pt evaluation today including: conversation w/ patient, physical exam, chart review, lab review, review of studies Patient seen and evaluated. No acute events overnight. Reporting that she has lost 8 lbs and feeling somewhat better. Complaining of a dry non-productive cough and poor sleep. RLE still painful but states it is improving since admission. She denies fever/chills or chest pain. Only other complaint is of R shoulder pain that is chronic. Constitutional: No fever, No chills ENT: No sore throat Respiratory: + cough, + shortness of breath (with coughing), No sputum Cardiovascular: No chest pain Abdomen: No pain, No nausea, No vomiting, No diarrhea, No constipation Musculoskeletal: + swelling (b/l lower extremities with R > L), + problem reported (RLE pain with intermittent shooting pain up to the R hip) Female : No dysuria Neurologic: No numbness/tingling (Windy Gipson, CHERYLC) Medications Current Inpatient Medications Medications (Trade) Dose Ordered Sig/[place] Route Start Time Stop Time Status Last Admin Dose Admin Heparin Sodium (Porcine) (Heparin Sq 5000 Unit/0.5ml) 5,000 unit Q8 SQ 06/02/17 22:00 07/02/17 21:59 06/03/17 06:22 5,000 UNIT Acetaminophen (Tylenol Tab) 650 mg Q4H PRN PO 06/02/17 12:15 07/02/17 12:14 06/02/17 18:29 650 MG Al Hydrox/Mg Hydrox/Simethicone (Maalox Max Susp) 15 ml Q4H PRN PO 06/02/17 12:15 07/02/17 12:14 Magnesium Hydroxide (Milk Of Magnesia Susp) 30 ml Q12H PRN PO 06/02/17 12:15 07/02/17 12:14 Zolpidem Tartrate (Ambien Tab) 5 mg HSZ PRN PO 06/02/17 12:15 07/02/17 12:14 Nitroglycerin (Nitrostat Tab) 0.4 mg UD PRN SL 06/02/17 12:15 07/02/17 12:14 Polyethylene (Miralax Powder Packet) 17 gm DAILY PRN PO 06/02/17 12:15 07/02/17 12:14 Lactobacillus Acidophilus (Lactinex Granules Pack) 1 gm TIDM PO 06/02/17 16:45 07/02/17 16:44 06/03/17 12:15 1 GM Ketoconazole (Nizoral 2% Crm) 1 appln BID EXT 06/02/17 21:00 08/03/17 12:15 06/03/17 08:50 1 APPLN Salmeterol Xinafoate/ Fluticasone (Advair Diskus 250/50 Inh) 1 puff BID PRN INH 06/02/17 12:30 07/02/17 12:29 Fluticasone Propionate (Flonase Nasal [place]) 2 sprays DAILY MARTY 06/03/17 09:00 07/03/17 08:59 Gabapentin (Neurontin Cap) 300 mg TID PO 06/02/17 21:00 07/02/17 20:59 06/03/17 08:49 300 MG Magnesium Oxide (Mag-Ox Tab) 400 mg DAILY PO 06/03/17 09:00 07/03/17 08:59 06/03/17 08:50 400 MG Meclizine HCl (Antivert Tab) 25 mg TID PRN PO 06/02/17 12:30 07/02/17 12:29 Montelukast Sodium (Singulair Tab) 10 mg HS PO 06/02/17 21:00 07/02/17 20:59 06/02/17 19:44 10 MG Pantoprazole Sodium (Protonix Tab) 40 mg DAILY PO 06/03/17 09:00 07/03/17 08:59 06/03/17 08:50 40 MG Pramipexole Dihydrochloride (miraPEX TAB) 1 mg BID PO 06/02/17 21:00 07/02/17 20:59 06/03/17 08:49 1 MG Carvedilol (Coreg Tab) 6.25 mg BID PO 06/02/17 21:00 07/02/17 20:59 06/03/17 08:50 6.25 MG Ceftriaxone Sodium 2000 mg/ Dextrose 70 ml @ 140 mls/hr Q24H IV 06/02/17 14:30 06/12/17 14:29 06/02/17 15:21 140 MLS/HR Ipratropium [place] (Atrovent 0.02% 0.5MG/2.5ML Neb) 0.5 mg Q6R INH 06/02/17 21:00 07/02/17 20:59 06/03/17 14:22 0.5 MG Levalbuterol (Xopenex 1.25MG/ 0.5ML Neb) 1.25 mg Q6R INH 06/02/17 21:00 07/02/17 20:59 06/03/17 14:22 1.25 MG Oxycodone/ Acetaminophen (Percocet 5-325mg Tab) 1 tab Q6 PRN PO 06/02/17 20:00 06/16/17 19:59 06/03/17 08:58 1 TAB Lidocaine (Lidoderm Patch 5%) 1 patch QAM TD 06/04/17 09:00 07/04/17 08:59 Miscellaneous (Remove Lidoderm Patch) 1 ea DAILY@21 N/A 06/03/17 21:00 07/03/17 20:59 (Windy Gipson, PA-C) Objective Vital Signs Date Time Temp Pulse Resp B/P (MAP) Pulse Ox O2 Delivery O2 Flow Rate FiO2 06/03/17 14:22 88 16 96 Room Air 06/03/17 11:52 36.6 91 20 144/73 (96) 91 Room Air 06/03/17 07:19 36.9 96 24 146/71 (96) 91 Room Air 06/03/17 07:07 90 16 95 Room Air 06/03/17 04:00 Room Air 06/03/17 03:06 37.2 93 20 161/82 (108) 93 Room Air 06/02/17 23:59 Room Air 06/02/17 23:16 37.2 92 21 126/75 (92) 92 Room Air 06/02/17 21:43 99 16 91 Room Air 06/02/17 20:00 Room Air 06/02/17 19:12 36.6 95 18 137/55 (82) 93 Room Air 06/02/17 16:00 Room Air 06/02/17 15:55 36.6 97 24 153/46 (81) 95 Room Air (Windy Gipson PA-C) Physical Exam General Appearance: WD/WN, no apparent distress, + obese ENT: hearing grossly normal Neck: supple, no JVD, trachea midline Respiratory/Chest: no respiratory distress, no accessory muscle use, + pertinent finding (limited exam as she is only take short breaths; appears to have ) Cardiovascular: regular rate, rhythm, + systolic murmur Abdomen: normal bowel sounds, non tender, soft Extremities: + pertinent finding (RLE warm to touch and erythematous from ankle to knee; tenderness to touch; bilat lymphedema) Neurologic/Psychiatric: alert, oriented x 3 Skin: normal color, warm/dry (Windy Gipson, SIABELL) Laboratory Results Last 24 Hours Test 06/02/17 15:16 06/02/17 19:18 06/03/17 00:33 06/03/17 06:01 Urine Color YELLOW Urine Appearance CLEAR Urine pH 7.0 Urine Specific [place] 1.011 Urine Protein NEG Urine Glucose (UA) NEG Urine Ketones NEG Urine Occult Blood NEG Urine Nitrite NEG Urine Bilirubin NEG Urine Urobilinogen NEG Urine Leukocyte Esterase NEG Total Creatine Kinase 59 U/L 66 U/L 66 U/L Troponin I < 0.015 ng/ml < 0.015 ng/ml < 0.015 ng/ml White Blood Count 6.98 K/uL Red Blood Count 3.67 M/uL Hemoglobin 10.4 g/dL Hematocrit 33.6 % Mean Corpuscular Volume 91.6 fL Mean Corpuscular Hemoglobin 28.3 pg Mean Corpuscular Hemoglobin Concent 31.0 g/dl Platelet Count 184 K/uL Mean Platelet Volume 11.3 fL Neutrophils (%) (Auto) 64.5 % Lymphocytes (%) (Auto) 22.5 % Monocytes (%) (Auto) 9.2 % Eosinophils (%) (Auto) 2.9 % Basophils (%) (Auto) 0.3 % Neutrophils # (Auto) 4.51 K/uL Lymphocytes # (Auto) 1.57 K/uL Monocytes # (Auto) 0.64 K/uL Eosinophils # (Auto) 0.20 K/uL Basophils # (Auto) 0.02 K/uL RDW Standard Deviation 53.6 fL RDW Coefficient of Variation 15.9 % Immature Granulocyte % (Auto) 0.6 % Immature Granulocyte # (Auto) 0.04 K/uL Sodium Level 140 mmol/L Potassium Level 3.3 mmol/L Chloride Level 102 mmol/L Carbon Dioxide Level 33 mmol/L Anion Gap 5.0 mmol/L Blood Urea Nitrogen 34 mg/dl Creatinine 1.98 mg/dl Est Creatinine Clear Calc Drug Dose 23.0 ml/min Estimated GFR () 25.7 Estimated GFR (Non- 22.2 BUN/Creatinine Ratio 17.0 Random Glucose 108 mg/dl Estimated Average Glucose 114 mg/dl Hemoglobin A1c 5.6 % Calcium Level 8.7 mg/dl Phosphorus Level 3.8 mg/dl Magnesium Level 2.2 mg/dl Total Bilirubin 0.4 mg/dl Aspartate Amino Transf (AST/SGOT) 14 U/L Alanine Aminotransferase (ALT/SGPT) 15 U/L Alkaline Phosphatase 75 U/L Total Protein 6.6 gm/dl Albumin 3.4 gm/dl Globulin 3.2 gm/dl Albumin/Globulin Ratio 1.1 Triglycerides Level 150 mg/dl Cholesterol Level 141 mg/dl HDL Cholesterol 44 mg/dl LDL Cholesterol, Calculated 67 mg/dl VLDL Cholesterol, Calculated 30 mg/dl Cholesterol/HDL Ratio 3.2 Test 06/03/17 08:51 06/03/17 12:10 Arterial Blood pH 7.44 Arterial Blood Partial Pressure CO2 46 mmHg Arterial Blood Partial Pressure O2 65 mm/Hg Arterial Blood HCO3 30 mmol/L Arterial Blood Oxygen Saturation 90.8 % Arterial Blood Base Excess 5.1 mEq/L Arterial Blood Gas Delivery RA Piter Test POS Total Creatine Kinase 80 U/L Troponin I < 0.015 ng/ml (Windy Gipson, PA-C) Assessment and Plan 87 year old female past medical history of chronic kidney disease stage III, lower back pain/spinal stenosis, neuropathy, myalgia and obesity presented to the ED with right lower extremity cellulitis, orthopnea, shortness of breath and significant weight gain. Acute on Chronic Diastolic CHF: IMPROVING - Lasix 20 mg daily - and continue to monitor kidney function - Diuresed for a negative balance of 1500 mL - Updated echo - EF 60-65%, grade 1 diastolic dysfunction Asthma with Exacerbation: Possible Acute Bronchitis? - Reporting nonproductive cough - states she was recently treated for bronchitis as outpatient - Xopenex and Atrovent nebs, Advair 1 puff BID PRN, and Singulair 10 mg HS RLE Cellulitis with Lymphedema/Tinea Pedis: - Ceftriaxone 2 g IV daily - reporting some improvement with pain - will hold off on further coverage for MRSA - will reevaluate tomorrow for the need for additional antibiotic coverage - Lasix 20 mg daily - and continue to monitor kidney function - Ketoconazole cream BID Morbid Obesity - Likely Sleep Apnea and Hypoventilation Syndrome: CKD Stage III - Currently at baseline with mild worsening of creatinine - currently 1.98 - Nephrology following - appreciate recommendations HTN: - Coreg 0.25 mg BID PMR: STABLE Asthma with Exacerbation: Possible Acute Bronchitis? DVT Prophylaxis: Heparin 5000 units SC Q8H Code Status: FULL RESUSCITATION Disposition: - PT/OT evaluations Continued [facility] stay due to: multiple IV medications needed (Windy Gipson, PAStanleyC) I performed a history and physical examination on the patient. I analyzed the problem and discussed case with APC and patient. At this point, I am unsure if her erythema in her lower extremity is showing cellulitis. At this point will continue with antibiotics. If pain does not improve, may be chronic pain from her back. Patient has no signs of sepsis at this time. will continue to follow with patient. (Daniel Allen M.D.)
[2017-06-03] MEDS ORDERED: FUROSEMIDE 20 MG TAB PO ONE (15:30)
[2017-06-03] MEDS: CEFTRIAXONE SOD INJ 2000 MG in DEXTROSE 5% 50ML IV SCH (16:54)
[2017-06-03] MEDS: BENZONATATE 100MG CAP PO SCH (21:18)
[2017-06-03] MEDS: MONTELUKAST SOD 10 MG TAB PO SCH (21:18)
[2017-06-03] MEDS: ACETAMINOPHEN 325 MG TAB PO PRN (21:19)
[2017-06-04] VITALS (10 sets, daily range): BP systolic 112–136; BP diastolic 57–68; PULSE 83–99; TEMP 36.5–36.9; O2SAT 84–97
[2017-06-04] MEDS: IPRATROPIUM BROMIDE NEB SOLN 0.02% 2.5 ML VIAL INH SCH ×4 (02:37→19:05)
[2017-06-04] MEDS: LEVALBUTEROL 1.25MG/0.5ML NEB INH SCH ×4 (02:37→19:05)
[2017-06-04] MEDS: OXYCODONE/ACETAMINOPHEN 5-325 TAB PO PRN ×2 (06:08→17:43)
[2017-06-04] MEDS: HEPARIN SOD 5000 UNIT/0.5 ML CARP SQ SCH ×3 (06:09→21:19)
[2017-06-04 06:20] LABS: HEMATOCRIT 32.7 % (37-47); HEMOGLOBIN 10.1 g/dL (12.0-16.0); MEAN CELL VOLUME 91.6 fL (80-100); MEAN CORPUSCULAR HEMOGLOBIN 28.3 pg (25-34); MEAN CORPUSCULAR HGB CONC 30.9 g/dl (32-36); MEAN PLATELET VOLUME 10.9 fL (7.4-10.4); PLATELET COUNT 172 K/uL (130-400); RED CELL DISTRIBUTION WIDTH CV 15.9 % (11.5-14.5); RED CELL DISTRIBUTION WIDTH SD 53.4 fL (36.4-46.3); WHITE BLOOD COUNT 6.63 K/uL (4.8-10.8)
[2017-06-04 06:55] LABS: CALCIUM 8.9 mg/dl (8.5-10.1); CREATININE 1.97 mg/dl (0.60-1.20); POTASSIUM 3.6 mmol/L (3.5-5.1)
[2017-06-04] MEDS: PANTOprazole SOD 40 MG TAB PO SCH (07:33)
[2017-06-04] MEDS: KETOCONAZOLE 2% CR 15 GM TUBE EXT SCH ×2 (07:33→21:17)
[2017-06-04] MEDS: GABAPENTIN 300 MG CAP PO SCH ×3 (07:33→21:18)
[2017-06-04] MEDS: CARVEDILOL 6.25 MG TAB PO SCH ×2 (07:34→21:18)
[2017-06-04] MEDS: FUROSEMIDE 20 MG TAB PO SCH (07:34)
[2017-06-04] MEDS: PRAMIPEXOLE DIHYDROCHLORIDE 0.5 MG TAB PO SCH ×2 (07:34→21:17)
[2017-06-04] MEDS: FLUTICASONE PROPIONATE NA SPR 16 GM BTL NAE SCH (07:35)
[2017-06-04] MEDS: LACTOBACILLUS ACIDOPHILUS 1 GM PACK PO SCH ×3 (07:35→17:43)
[2017-06-04] MEDS: BENZONATATE 100MG CAP PO SCH ×3 (07:35→21:18)
[2017-06-04] MEDS: MAGNESIUM OXIDE 400 MG TAB PO SCH (07:35)
[2017-06-04] MEDS: LIDODERM (LIDOCAINE) PATCH 5% TD SCH (07:36)
[2017-06-04] MEDS ORDERED: FUROSEMIDE INJ 20 MG in SYRINGE 0 ML IV SCH (09:00)
[2017-06-04] MEDS ORDERED: POTASSIUM CHLORIDE 20 MEQ TABCR PO ONE (09:15)
[2017-06-04] MEDS: ACETAMINOPHEN 325 MG TAB PO PRN (09:54)
--- NOTE | 2017-06-04 10:25 | Nephrology Progress Note ---
Nephrology Progress Note Date of Service Jun 04, 2017. Chief Complaint Chronic kidney disease Subjective Sahra was sleeping comfortably in a chair with her feet elevated when I entered the room. She feels well but remains tired. She falls asleep easily. Sahra noted a notable improvement in lower extremity edema. Lower extremity vesicular lesions seem to have resolved. The patient notes that she cannot appreciate anymore blistering. She denies any fevers or chills. The leg remains very tender. This limits her ability to stand but even this is improving. She denies arthralgias or myalgias otherwise. The lesions are localized to her right lower extremity as far as the patient can tell. She denies any oral lesions. Dyspnea has improved as well as cough. Sahra denies any GI symptoms. Review of Systems A complete review of systems was performed. Pertinent positives are noted above. All other systems are negative. Vital Signs Last 8 Hrs Date Time Temp Pulse Resp B/P (MAP) Pulse Ox O2 Delivery O2 Flow Rate FiO2 06/04/17 08:19 36.7 88 18 112/60 (77) 94 Nasal Cannula 2.5 06/04/17 07:01 96 16 94 Room Air 06/04/17 04:00 Room Air 06/04/17 03:38 36.6 88 20 128/65 (86) 95 Nasal Cannula 2.0 06/04/17 02:38 96 16 84 Room Air Last Recorded Weight Weight (Kilograms): 99.100 Physical Exam General Appearance: no apparent distress, + obese Head: normocephalic, atraumatic Eyes: normal inspection, sclerae normal ENT: normal ENT inspection, pharynx normal, + pertinent finding (no oral lesions) Neck: supple, no JVD Respiratory/Chest: lungs clear, no respiratory distress, no accessory muscle use Cardiovascular: regular rate, rhythm, no gallop, no murmur Abdomen/GI: non tender, soft Extremities/Musculoskelatal: + pertinent finding (LLE edema has resolved, there is a compression stocking on the left leg this morning; RLE with improving tense edema and induration of the foot extending to the lower sanders, the area is very tender, DP pulse is weak and capillary refill delayed, thre are non blanching nodules on the RLE with some mild excoriation, erythema and warmth have improved) Neurologic/Psych: alert, normal mood/affect Family History No pertinent family history Social History Smoking Status: Former smoker Drug Use: none Marital Status: Housing Status: lives alone Occupation: retired Laboratory Results Past 24 Hours 06/04/17 05:55 06/04/17 05:55 Test 06/03/17 12:10 06/04/17 05:55 Total Creatine Kinase 80 U/L (26-192) Troponin I < 0.015 ng/ml (0-0.045) Red Blood Count 3.57 M/uL (4.2-5.4) Mean Corpuscular Volume 91.6 fL (80-100) Mean Corpuscular Hemoglobin 28.3 pg (25-34) Mean Corpuscular Hemoglobin Concent 30.9 g/dl (32-36) RDW Standard Deviation 53.4 fL (36.4-46.3) RDW Coefficient of Variation 15.9 % (11.5-14.5) Mean Platelet Volume 10.9 fL (7.4-10.4) Anion Gap 3.0 mmol/L (3-11) Est Creatinine Clear Calc Drug Dose 23.0 ml/min Estimated GFR () 25.8 Estimated GFR (Non- 22.3 BUN/Creatinine Ratio 19.3 (10-20) Calcium Level 8.9 mg/dl (8.5-10.1) Allergies Coded Allergies: Iodine (Verified Allergy, Intermediate, RASH, 06/04/17) Levofloxacin (Verified Allergy, Intermediate, red painful skin,itching, burning, 06/02/17) Aspirin (Verified Allergy, Unknown, UNKNOWN, 06/02/17) Cefdinir (Verified Allergy, Unknown, UNKNOWN, 06/02/17) Penicillins (Verified Allergy, Unknown, 06/02/17) Venlafaxine (Verified Allergy, Unknown, UNKNOWN, 06/02/17) Tapentadol (Verified Adverse Reaction, Intermediate, "drunk as a hoot owl ", 06/04/17) pt/gmg Amoxicillin (Verified Adverse Reaction, Mild, G I UPSET, 06/04/17) Cephalosporins (Verified Adverse Reaction, Mild, G I UPSET, 06/04/17) Codeine (Verified Adverse Reaction, Mild, GI UPSET, 06/02/17) Sulfa Antibiotics (Verified Adverse Reaction, Mild, GI UPSET, 06/04/17) Medications Current Inpatient Medications Medications (Trade) Dose Ordered Sig/[place] Route Start Time Stop Time Status Last Admin Dose Admin Heparin Sodium (Porcine) (Heparin Sq 5000 Unit/0.5ml) 5,000 unit Q8 SQ 06/02/17 22:00 07/02/17 21:59 06/04/17 06:09 5,000 UNIT Acetaminophen (Tylenol Tab) 650 mg Q4H PRN PO 06/02/17 12:15 07/02/17 12:14 06/03/17 21:19 650 MG Al Hydrox/Mg Hydrox/Simethicone (Maalox Max Susp) 15 ml Q4H PRN PO 06/02/17 12:15 07/02/17 12:14 Magnesium Hydroxide (Milk Of Magnesia Susp) 30 ml Q12H PRN PO 06/02/17 12:15 07/02/17 12:14 Zolpidem Tartrate (Ambien Tab) 5 mg HSZ PRN PO 06/02/17 12:15 07/02/17 12:14 Nitroglycerin (Nitrostat Tab) 0.4 mg UD PRN SL 06/02/17 12:15 07/02/17 12:14 Polyethylene (Miralax Powder Packet) 17 gm DAILY PRN PO 06/02/17 12:15 07/02/17 12:14 Lactobacillus Acidophilus (Lactinex Granules Pack) 1 gm TIDM PO 06/02/17 16:45 07/02/17 16:44 06/04/17 07:35 1 GM Ketoconazole (Nizoral 2% Crm) 1 appln BID EXT 06/02/17 21:00 08/03/17 12:15 06/04/17 07:33 1 APPLN Salmeterol Xinafoate/ Fluticasone (Advair Diskus 250/50 Inh) 1 puff BID PRN INH 06/02/17 12:30 07/02/17 12:29 Fluticasone Propionate (Flonase Nasal [place]) 2 sprays DAILY MARTY 06/03/17 09:00 07/03/17 08:59 Gabapentin (Neurontin Cap) 300 mg TID PO 06/02/17 21:00 07/02/17 20:59 06/04/17 07:33 300 MG Magnesium Oxide (Mag-Ox Tab) 400 mg DAILY PO 06/03/17 09:00 07/03/17 08:59 06/04/17 07:35 400 MG Meclizine HCl (Antivert Tab) 25 mg TID PRN PO 06/02/17 12:30 07/02/17 12:29 Montelukast Sodium (Singulair Tab) 10 mg HS PO 06/02/17 21:00 07/02/17 20:59 06/03/17 21:18 10 MG Pantoprazole Sodium (Protonix Tab) 40 mg DAILY PO 06/03/17 09:00 07/03/17 08:59 06/04/17 07:33 40 MG Pramipexole Dihydrochloride (miraPEX TAB) 1 mg BID PO 06/02/17 21:00 07/02/17 20:59 06/04/17 07:34 1 MG Carvedilol (Coreg Tab) 6.25 mg BID PO 06/02/17 21:00 07/02/17 20:59 06/04/17 07:34 6.25 MG Ceftriaxone Sodium 2000 mg/ Dextrose 70 ml @ 140 mls/hr Q24H IV 06/02/17 14:30 06/12/17 14:29 06/03/17 16:54 140 MLS/HR Ipratropium [place] (Atrovent 0.02% 0.5MG/2.5ML Neb) 0.5 mg Q6R INH 06/02/17 21:00 07/02/17 20:59 06/04/17 07:01 0.5 MG Levalbuterol (Xopenex 1.25MG/ 0.5ML Neb) 1.25 mg Q6R INH 06/02/17 21:00 07/02/17 20:59 06/04/17 07:01 1.25 MG Oxycodone/ Acetaminophen (Percocet 5-325mg Tab) 1 tab Q6 PRN PO 06/02/17 20:00 06/16/17 19:59 06/04/17 06:08 1 TAB Lidocaine (Lidoderm Patch 5%) 1 patch QAM TD 06/04/17 09:00 07/04/17 08:59 06/04/17 07:36 1 PATCH Miscellaneous (Remove Lidoderm Patch) 1 ea DAILY@21 N/A 06/03/17 21:00 07/03/17 20:59 Furosemide (Lasix Tab) 20 mg QAM PO 06/04/17 09:00 07/04/17 08:59 06/04/17 07:34 20 MG Benzonatate (Tessalon Perles Cap) 100 mg TID PO 06/03/17 21:00 07/03/17 20:59 06/04/17 07:35 100 MG Potassium Chloride (Klor-Con Tab) 20 meq BID PO 06/04/17 21:00 07/04/17 20:59 Impression (1) CKD (chronic kidney disease), stage IV (2) HARJINDER (obstructive sleep apnea) (3) Venous insufficiency (4) Diastolic CHF (5) Lymphedema Sahra is an 87-year-old female with CKD IV A1. UA yon. CKD can be attributed to nephrosclerosis and microvascular disease as well as senescence. CT of the abdomen from 2013 is notable for mild to moderate cortical atrophy with at least one simple cyst noted in the right kidney. Creatinine has been 1.6-2.0 mg/dL since at least 2013. Sahra has chronic lower extremity lymphedema and venous insufficiency. She receives regular lymphedema treatment as an outpatient through [facility]. She suffers from obesity and untreated HARJINDER. She has diastolic dysfunction. She also has mild anemia. All of these factors including her renal dysfunction likely contribute to her lower extremity edema. Baseline activity tolerance is limited due to OA/DJD and spinal stenosis. Serum albumin is normal. 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 Sahra has asymmetric right > left edema. There are localized changes in the right lower extremity. The appearance is atypical for cellulitis alone (as noted by the patient's RN). There are tender nodular lesions. I do not see findings otherwise of a system vasculitis. Due to the localized nature, I would consider a allergic reaction or even possible contact dermatitis. Dermatology evaluation may eventually be beneficial. Exam is suggestive of some underlying PAD as well. Edema is being treated with diuretics with close monitoring of renal function and volume status. She has responded well to furosemide 20 mg daily. Volume status overall acceptable and BP appropriate. There seems to have been improvement in treatment of cellulitis with Ceftriaxone. Lower extremity duplex was negative for DVT. The patient lives alone. She has two sons (Bernardo and Horacio) who live locally and provide assistance of a regular basis. Sahra does not drive. Disposition is pending. PT evaluation will be appreciated to assist with disposition. Recommendations -- Continue furosemide 20 mg daily, goal is to maintain a slightly negative fluid balance -- Check orthostatic vital signs QAM while inpatient -- Monitor metabolic profile daily while inpatient -- Check iron studies with next set of blood work -- Document I/O's -- Encourage inpatient evaluation for nocturnal O2 or NIPPV -- Sodium restricted diet -- Aspirin 81 mg daily -- Compression stockings to LLE and keep feet elevated -- Physical therapy evaluation -- Medications are currently appropriately dosed for renal function -- Avoid XIOMY/ARB, avoid NSAIDs -- Nephrology will continue to follow labs for now, please call with questions or concerns otherwise Outpatient follow up with nephrology is encouraged after discharge for CKD: -- Repeat renal profile within 1 week of hospital discharge and fax result to ( [phone]) -- Patient to follow up with nephrology within 1 week of hospital discharge ( call [phone] to scheduled)
[2017-06-04] MEDS: CEFTRIAXONE SOD INJ 2000 MG in DEXTROSE 5% 50ML IV SCH (15:33)
[2017-06-04] MEDS ORDERED: POTASSIUM CHLORIDE 20 MEQ TABCR PO SCH (21:00)
[2017-06-04] MEDS: MONTELUKAST SOD 10 MG TAB PO SCH (21:18)
--- NOTE | 2017-06-04 22:29 | Progress Note ---
Subjective Date of Service: Jun 04, 2017. Subjective Pt evaluation today including: conversation w/ patient, physical exam, chart review, lab review 87 year old female who is here for lower extremity edema and significant leg pain. Patient reports that the redness in her right lower leg has improved, but it is still very painful. Pain radiates from her back and shoots up to her lower back. She also reports having a similar issue on the contralateral side, but no erythema on that leg. Problem List Medical Problems: (1) Arthritis of shoulder region Status: Acute (2) Back pain Status: Acute (3) Bilateral leg edema Status: Acute (4) Bronchitis Status: Acute (5) Cellulitis Status: Acute (6) Cough Status: Acute (7) Hypokalemia Status: Acute Review of Systems Constitutional: No fever, No chills Respiratory: No cough, No sputum Cardiac: No chest pain Abdomen: No pain, No nausea Musculoskeletal: + joint pain Neurologic: No memory loss Endo: No fatigue Skin: No itch All Other Systems: Reviewed and Negative Medications Current Inpatient Medications Medications (Trade) Dose Ordered Sig/[place] Route Start Time Stop Time Status Last Admin Dose Admin Heparin Sodium (Porcine) (Heparin Sq 5000 Unit/0.5ml) 5,000 unit Q8 SQ 06/02/17 22:00 07/02/17 21:59 06/06/17 05:52 5,000 UNIT Acetaminophen (Tylenol Tab) 650 mg Q4H PRN PO 06/02/17 12:15 07/02/17 12:14 06/06/17 12:25 650 MG Al Hydrox/Mg Hydrox/Simethicone (Maalox Max Susp) 15 ml Q4H PRN PO 06/02/17 12:15 07/02/17 12:14 Magnesium Hydroxide (Milk Of Magnesia Susp) 30 ml Q12H PRN PO 06/02/17 12:15 07/02/17 12:14 Zolpidem Tartrate (Ambien Tab) 5 mg HSZ PRN PO 06/02/17 12:15 07/02/17 12:14 Nitroglycerin (Nitrostat Tab) 0.4 mg UD PRN SL 06/02/17 12:15 07/02/17 12:14 Polyethylene (Miralax Powder Packet) 17 gm DAILY PRN PO 06/02/17 12:15 07/02/17 12:14 Lactobacillus Acidophilus (Lactinex Granules Pack) 1 gm TIDM PO 06/02/17 16:45 07/02/17 16:44 06/06/17 12:18 1 GM Ketoconazole (Nizoral 2% Crm) 1 appln BID EXT 06/02/17 21:00 08/03/17 12:15 06/06/17 08:33 1 APPLN Salmeterol Xinafoate/ Fluticasone (Advair Diskus 250/50 Inh) 1 puff BID PRN INH 06/02/17 12:30 07/02/17 12:29 Fluticasone Propionate (Flonase Nasal [place]) 2 sprays DAILY MARTY 06/03/17 09:00 07/03/17 08:59 Gabapentin (Neurontin Cap) 300 mg TID PO 06/02/17 21:00 07/02/17 20:59 06/06/17 08:33 300 MG Meclizine HCl (Antivert Tab) 25 mg TID PRN PO 06/02/17 12:30 07/02/17 12:29 Montelukast Sodium (Singulair Tab) 10 mg HS PO 06/02/17 21:00 07/02/17 20:59 06/05/17 21:46 10 MG Pantoprazole Sodium (Protonix Tab) 40 mg DAILY PO 06/03/17 09:00 07/03/17 08:59 06/06/17 08:33 40 MG Pramipexole Dihydrochloride (miraPEX TAB) 1 mg BID PO 06/02/17 21:00 07/02/17 20:59 06/06/17 08:34 1 MG Carvedilol (Coreg Tab) 6.25 mg BID PO 06/02/17 21:00 07/02/17 20:59 06/06/17 08:33 6.25 MG Ceftriaxone Sodium 2000 mg/ Dextrose 70 ml @ 140 mls/hr Q24H IV 06/02/17 14:30 06/12/17 14:29 06/05/17 15:36 140 MLS/HR Ipratropium [place] (Atrovent 0.02% 0.5MG/2.5ML Neb) 0.5 mg Q6R INH 06/02/17 21:00 07/02/17 20:59 06/06/17 07:15 0.5 MG Levalbuterol (Xopenex 1.25MG/ 0.5ML Neb) 1.25 mg Q6R INH 06/02/17 21:00 07/02/17 20:59 06/06/17 07:15 1.25 MG Oxycodone/ Acetaminophen (Percocet 5-325mg Tab) 1 tab Q6 PRN PO 06/02/17 20:00 06/16/17 19:59 06/05/17 00:43 1 TAB Lidocaine (Lidoderm Patch 5%) 1 patch QAM TD 06/04/17 09:00 07/04/17 08:59 06/06/17 08:35 1 PATCH Miscellaneous (Remove Lidoderm Patch) 1 ea DAILY@21 N/A 06/03/17 21:00 07/03/17 20:59 06/05/17 21:00 1 EA Furosemide (Lasix Tab) 20 mg QAM PO 06/04/17 09:00 07/04/17 08:59 06/06/17 08:34 20 MG Benzonatate (Tessalon Perles Cap) 100 mg TID PO 06/03/17 21:00 07/03/17 20:59 06/06/17 08:33 100 MG Erythromycin (Erythromycin Oph Oint) 1 appln TID OP 06/05/17 21:00 06/15/17 20:59 06/06/17 08:33 1 APPLN Objective Vital Signs Date Time Temp Pulse Resp B/P (MAP) Pulse Ox O2 Delivery O2 Flow Rate FiO2 06/04/17 20:17 36.5 98 19 136/67 (90) 92 Nasal Cannula 2.0 06/04/17 20:04 99 16 96 Room Air 06/04/17 20:00 Room Air 06/04/17 16:00 Room Air 06/04/17 15:47 36.8 96 20 122/57 (78) 97 Nasal Cannula 3.0 06/04/17 14:17 95 16 97 Room Air 06/04/17 12:00 Room Air 06/04/17 11:47 36.6 83 18 114/65 (81) 93 Nasal Cannula 2.0 06/04/17 08:19 36.7 88 18 112/60 (77) 94 Nasal Cannula 2.5 06/04/17 08:00 Room Air 06/04/17 07:01 96 16 94 Room Air 06/04/17 04:00 Room Air 06/04/17 03:38 36.6 88 20 128/65 (86) 95 Nasal Cannula 2.0 06/04/17 02:38 96 16 84 Room Air 06/04/17 00:13 36.9 97 20 121/68 (85) 93 Room Air 06/04/17 00:00 Room Air Physical Exam Comments: General Appearance: WD/WN, no apparent distress, + obese ENT: hearing grossly normal Neck: supple, no JVD, trachea midline Respiratory/Chest: no respiratory distress, no accessory muscle use, decreased breath sounds. Cardiovascular: regular rate, rhythm, + systolic murmur Abdomen: normal bowel sounds, non tender, soft Extremities: + pertinent finding (RLE warm to touch and erythematous from ankle to knee; there are small erythematous papules with normal skin in between , tenderness to touch; bilat lymphedema) Neurologic/Psychiatric: alert, oriented x 3 Skin: normal color, warm/dry Laboratory Results Last 24 Hours Test 06/04/17 05:55 White Blood Count 6.63 K/uL Red Blood Count 3.57 M/uL Hemoglobin 10.1 g/dL Hematocrit 32.7 % Mean Corpuscular Volume 91.6 fL Mean Corpuscular Hemoglobin 28.3 pg Mean Corpuscular Hemoglobin Concent 30.9 g/dl RDW Standard Deviation 53.4 fL RDW Coefficient of Variation 15.9 % Platelet Count 172 K/uL Mean Platelet Volume 10.9 fL Sodium Level 137 mmol/L Potassium Level 3.6 mmol/L Chloride Level 100 mmol/L Carbon Dioxide Level 34 mmol/L Anion Gap 3.0 mmol/L Blood Urea Nitrogen 38 mg/dl Creatinine 1.97 mg/dl Est Creatinine Clear Calc Drug Dose 23.0 ml/min Estimated GFR () 25.8 Estimated GFR (Non- 22.3 BUN/Creatinine Ratio 19.3 Random Glucose 106 mg/dl Calcium Level 8.9 mg/dl Assessment and Plan 87 year old female past medical history of chronic kidney disease stage III, lower back pain/spinal stenosis, neuropathy, myalgia and obesity presented to the ED with right lower extremity cellulitis, orthopnea, shortness of breath and significant weight gain. Acute on Chronic Diastolic CHF: IMPROVING - Lasix 20 mg daily - and continue to monitor kidney function - Diuresed for a negative balance of 1900ml - Updated echo - EF 60-65%, grade 1 diastolic dysfunction - she appears to be improving Asthma with Exacerbation: Possible Acute Bronchitis? - Reporting nonproductive cough - states she was recently treated for bronchitis as outpatient - Xopenex and Atrovent nebs, Advair 1 puff BID PRN, and Singulair 10 mg HS RLE Cellulitis with Lymphedema/Tinea Pedis: - unsure if the main issue is cellulits as she has history of spinal stenosis - Ceftriaxone 2 g IV daily - reporting some improvement with pain - Lasix 20 mg daily - and continue to monitor kidney function - Ketoconazole cream BID Intractable back pain likely from spinal stenosis patient on a opiate, however she becomes lethargic. will hold off. patient already on gabapentin Morbid Obesity - Likely Sleep Apnea and Hypoventilation Syndrome: CKD Stage III - Currently at baseline with mild worsening of creatinine - currently 1.98 - Nephrology following - appreciate recommendations HTN: - Coreg 0.25 mg BID PMR: STABLE Asthma with Exacerbation: Possible Acute Bronchitis? DVT Prophylaxis: Heparin 5000 units SC Q8H Code Status: FULL RESUSCITATION Disposition: - PT/OT evaluations Continued [facility] stay due to: multiple IV medications needed Continued [facility] stay due to: multiple IV medications needed
[2017-06-05] VITALS (10 sets, daily range): BP systolic 116–158; BP diastolic 59–100; PULSE 88–109; TEMP 36.7–37.7; O2SAT 92–96
[2017-06-05] MEDS: OXYCODONE/ACETAMINOPHEN 5-325 TAB PO PRN (00:43)
[2017-06-05] MEDS: LEVALBUTEROL 1.25MG/0.5ML NEB INH SCH ×4 (01:57→18:50)
[2017-06-05] MEDS: IPRATROPIUM BROMIDE NEB SOLN 0.02% 2.5 ML VIAL INH SCH ×4 (01:57→18:50)
[2017-06-05] MEDS: ACETAMINOPHEN 325 MG TAB PO PRN (02:54)
[2017-06-05 06:08] LABS: HEMATOCRIT 33.3 % (37-47); HEMOGLOBIN 10.3 g/dL (12.0-16.0); MEAN CELL VOLUME 92.5 fL (80-100); MEAN CORPUSCULAR HEMOGLOBIN 28.6 pg (25-34); MEAN CORPUSCULAR HGB CONC 30.9 g/dl (32-36); MEAN PLATELET VOLUME 11.4 fL (7.4-10.4); PLATELET COUNT 171 K/uL (130-400); RED CELL DISTRIBUTION WIDTH CV 15.8 % (11.5-14.5); RED CELL DISTRIBUTION WIDTH SD 53.7 fL (36.4-46.3); WHITE BLOOD COUNT 9.16 K/uL (4.8-10.8)
[2017-06-05] MEDS: HEPARIN SOD 5000 UNIT/0.5 ML CARP SQ SCH ×3 (06:14→21:49)
[2017-06-05 06:32] LABS: CALCIUM 8.6 mg/dl (8.5-10.1); CREATININE 1.85 mg/dl (0.60-1.20); POTASSIUM 4.2 mmol/L (3.5-5.1)
[2017-06-05] MEDS: LACTOBACILLUS ACIDOPHILUS 1 GM PACK PO SCH ×3 (07:53→16:45)
[2017-06-05] MEDS: KETOCONAZOLE 2% CR 15 GM TUBE EXT SCH ×2 (07:53→21:44)
[2017-06-05] MEDS: FLUTICASONE PROPIONATE NA SPR 16 GM BTL NAE SCH (07:53)
[2017-06-05] MEDS: FUROSEMIDE 20 MG TAB PO SCH (07:54)
[2017-06-05] MEDS: GABAPENTIN 300 MG CAP PO SCH ×3 (07:54→21:46)
[2017-06-05] MEDS: LIDODERM (LIDOCAINE) PATCH 5% TD SCH (07:54)
[2017-06-05] MEDS: PRAMIPEXOLE DIHYDROCHLORIDE 0.5 MG TAB PO SCH ×2 (07:54→21:45)
[2017-06-05] MEDS: PANTOprazole SOD 40 MG TAB PO SCH (07:54)
[2017-06-05] MEDS: BENZONATATE 100MG CAP PO SCH ×3 (07:54→21:46)
[2017-06-05] MEDS: CARVEDILOL 6.25 MG TAB PO SCH ×2 (07:55→21:47)
[2017-06-05] MEDS ORDERED: TRAMADOL HCL 50 MG TAB PO STA (11:09)
--- NOTE | 2017-06-05 13:09 | NEPHROLOGY PROGRESS NOTE ---
DATE: 06/05/2017 SUBJECTIVE: Mrs. Pan says that she is feeling somewhat better. She recognizes that she has put out a significant amount of urine and that her swelling has gone down in her legs. However, she does complain of shooting pains in her legs that are quite severe. It worse in her right leg than in her left. She says that the pain is somewhere between the shooting pain and cramp, although episodes are generally individually shortlived, but frequently repetitive. She has a loose cough, which is nonproductive. She has no associated chest pain. She has no other specific complaints. For the most part, she has been becoming more comfortable. OBJECTIVE: GENERAL: On physical exam, she appears as an elderly, overweight woman of about her stated age of 87. She appears comfortable, but would intermittently jump in pain in her legs. VITAL SIGNS: Her temperature is 37.1 degrees, although it has been as high as 37.7 degrees. Her blood pressure 116/86 with a pulse of 94 and regular. Respiratory rate 16-26. Her pulse ox is 94%-96% on 2 liters of oxygen via nasal cannula. SKIN: Shows normal skin turgor. She has a significant rash on her distal right leg. It appears to be somewhat nodular with an element of cellulitis. LYMPHATICS: Show no lymphangitis or lymphadenopathy. HEAD: Normal. EYES: Grossly normal. The ocular fundi were not examined. EARS, NOSE, MOUTH AND THROAT: Unremarkable. Oral mucous membranes are moist. NECK: Supple. At about 30 degrees, I see no obvious jugular venous distention, but the exam is limited by her body habitus. CHEST: Shows diminished breath sounds at the bases. Breath sounds are somewhat distant. She has a few scattered rhonchi, but her chest is otherwise clear. CARDIAC: Shows a regular rhythm. S1 and S2 are normal. I hear no murmur or gallop. ABDOMEN: Obese, but nontender. There is no obvious organomegaly or mass. EXTREMITIES: Show trace to 1+ edema of the right leg and trace edema of the left leg. Her legs are quite tender. NEUROLOGIC: Shows no lateralizing changes. Her output since admission exceeds her intake by about 5 liters. Her weight is down 5 kilograms. Clinical chemistries from today show sodium of 138 mmol/L, potassium 4.2 mmol/L, chlorides 101, and CO2 content 34 mmol/L. Her BUN is 35 and her creatinine 1.8. Her serum calcium is 8.6. Her serum magnesium 2.3. Her transferrin saturation is 11%. Her ferritin is 66.1. Her CBC shows a white count 9160. Differential was not done. Her hemoglobin 10.3 and hematocrit 33.3. Her platelet count 171,000. Her urinalysis done on June 02 was unremarkable. Arterial blood gases done on June 03 showed a pH of 7.44, pCO2 of 46 and a pO2 of 65!. ASSESSMENT: Mrs. Pan' renal function is slowly improving with diuresis. The blood gases that she had done earlier during her hospital stay are certainly suggestive of chronic lung disease. 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 She has a history of apparent obstructive sleep apnea. She denies being a smoker. Nonetheless, I would question whether or not she has significant underlying lung disease with pulmonary hypertension contributing to her issues. Her urinalysis does not show any proteinuria, which would suggest that some of her changes are prerenal and could be related to cardiorenal syndrome. An echocardiogram may be beneficial. As far as her shooting pains in her legs are concerned, the nature of her discomfort seems consistent with a peripheral neuropathy. She is taking gabapentin. I am uncertain about the rash that she has on her lower extremities. RECOMMENDATIONS: Continue with her ____. I would not be more aggressive given what appears to be significant underlying lung disease. I would check an echocardiogram to see if she has significant pulmonary hypertension. No other immediate recommendations.
[2017-06-05] MEDS: CEFTRIAXONE SOD INJ 2000 MG in DEXTROSE 5% 50ML IV SCH (15:36)
[2017-06-05] MEDS: ERYTHROMYCIN OP OINT 5 MG/GM 3.5 GM TUBE OP SCH (21:44)
[2017-06-05] MEDS: MONTELUKAST SOD 10 MG TAB PO SCH (21:46)
[2017-06-06] VITALS (10 sets, daily range): BP systolic 106–134; BP diastolic 48–73; PULSE 77–93; TEMP 36.5–37.1; O2SAT 92–97
--- NOTE | 2017-06-06 01:08 | Progress Note ---
Subjective Date of Service: Jun 05, 2017. Subjective Pt evaluation today including: conversation w/ patient, conversation w/ family , physical exam, chart review Patient continues to have back pain that radiates to her legs. Patient reports no significant improvement with her pain. She states that the tramadol that she received today did not help significantly. It calmed it down a tad but it was still moderate in intensity. She states that she has not been out of bed, and that physical therapy did not see her today. I also discussed with her son on the phone, he states that she is living at home by herself. Problem List Medical Problems: (1) Arthritis of shoulder region Status: Acute (2) Back pain Status: Acute (3) Bilateral leg edema Status: Acute (4) Bronchitis Status: Acute (5) Cellulitis Status: Acute (6) Cough Status: Acute (7) Hypokalemia Status: Acute Review of Systems Constitutional: No fever, No chills Respiratory: No cough, No sputum Cardiac: No chest pain Abdomen: No pain Neurologic: No memory loss Skin: No rash, No itch All Other Systems: Reviewed and Negative Medications Current Inpatient Medications Medications (Trade) Dose Ordered Sig/[place] Route Start Time Stop Time Status Last Admin Dose Admin Heparin Sodium (Porcine) (Heparin Sq 5000 Unit/0.5ml) 5,000 unit Q8 SQ 06/02/17 22:00 07/02/17 21:59 06/06/17 05:52 5,000 UNIT Acetaminophen (Tylenol Tab) 650 mg Q4H PRN PO 06/02/17 12:15 07/02/17 12:14 06/06/17 12:25 650 MG Al Hydrox/Mg Hydrox/Simethicone (Maalox Max Susp) 15 ml Q4H PRN PO 06/02/17 12:15 07/02/17 12:14 Magnesium Hydroxide (Milk Of Magnesia Susp) 30 ml Q12H PRN PO 06/02/17 12:15 07/02/17 12:14 Zolpidem Tartrate (Ambien Tab) 5 mg HSZ PRN PO 06/02/17 12:15 07/02/17 12:14 Nitroglycerin (Nitrostat Tab) 0.4 mg UD PRN SL 06/02/17 12:15 07/02/17 12:14 Polyethylene (Miralax Powder Packet) 17 gm DAILY PRN PO 06/02/17 12:15 07/02/17 12:14 Lactobacillus Acidophilus (Lactinex Granules Pack) 1 gm TIDM PO 06/02/17 16:45 07/02/17 16:44 06/06/17 12:18 1 GM Ketoconazole (Nizoral 2% Crm) 1 appln BID EXT 06/02/17 21:00 08/03/17 12:15 06/06/17 08:33 1 APPLN Salmeterol Xinafoate/ Fluticasone (Advair Diskus 250/50 Inh) 1 puff BID PRN INH 06/02/17 12:30 07/02/17 12:29 Fluticasone Propionate (Flonase Nasal [place]) 2 sprays DAILY MARTY 06/03/17 09:00 07/03/17 08:59 Gabapentin (Neurontin Cap) 300 mg TID PO 06/02/17 21:00 07/02/17 20:59 06/06/17 08:33 300 MG Meclizine HCl (Antivert Tab) 25 mg TID PRN PO 06/02/17 12:30 07/02/17 12:29 Montelukast Sodium (Singulair Tab) 10 mg HS PO 06/02/17 21:00 07/02/17 20:59 06/05/17 21:46 10 MG Pantoprazole Sodium (Protonix Tab) 40 mg DAILY PO 06/03/17 09:00 07/03/17 08:59 06/06/17 08:33 40 MG Pramipexole Dihydrochloride (miraPEX TAB) 1 mg BID PO 06/02/17 21:00 07/02/17 20:59 06/06/17 08:34 1 MG Carvedilol (Coreg Tab) 6.25 mg BID PO 06/02/17 21:00 07/02/17 20:59 06/06/17 08:33 6.25 MG Ceftriaxone Sodium 2000 mg/ Dextrose 70 ml @ 140 mls/hr Q24H IV 06/02/17 14:30 06/12/17 14:29 06/05/17 15:36 140 MLS/HR Ipratropium [place] (Atrovent 0.02% 0.5MG/2.5ML Neb) 0.5 mg Q6R INH 06/02/17 21:00 07/02/17 20:59 06/06/17 07:15 0.5 MG Levalbuterol (Xopenex 1.25MG/ 0.5ML Neb) 1.25 mg Q6R INH 06/02/17 21:00 07/02/17 20:59 06/06/17 07:15 1.25 MG Oxycodone/ Acetaminophen (Percocet 5-325mg Tab) 1 tab Q6 PRN PO 06/02/17 20:00 06/16/17 19:59 06/05/17 00:43 1 TAB Lidocaine (Lidoderm Patch 5%) 1 patch QAM TD 06/04/17 09:00 07/04/17 08:59 06/06/17 08:35 1 PATCH Miscellaneous (Remove Lidoderm Patch) 1 ea DAILY@21 N/A 06/03/17 21:00 07/03/17 20:59 06/05/17 21:00 1 EA Furosemide (Lasix Tab) 20 mg QAM PO 06/04/17 09:00 07/04/17 08:59 06/06/17 08:34 20 MG Benzonatate (Tessalon Perles Cap) 100 mg TID PO 06/03/17 21:00 07/03/17 20:59 06/06/17 08:33 100 MG Erythromycin (Erythromycin Oph Oint) 1 appln TID OP 06/05/17 21:00 06/15/17 20:59 06/06/17 08:33 1 APPLN Objective Vital Signs Date Time Temp Pulse Resp B/P (MAP) Pulse Ox O2 Delivery O2 Flow Rate FiO2 06/05/17 23:59 Nasal Cannula 2.0 06/05/17 23:35 36.9 89 22 128/75 (92) 92 Nasal Cannula 2.0 06/05/17 20:00 Nasal Cannula 2.0 06/05/17 19:29 36.9 90 19 123/80 (94) 92 Nasal Cannula 2.0 06/05/17 18:50 88 16 92 Room Air 06/05/17 16:00 Room Air 06/05/17 14:21 88 16 94 Nasal Cannula 2.0 06/05/17 12:00 Room Air 06/05/17 11:50 37.1 94 23 116/86 (96) 96 Nasal Cannula 2.0 06/05/17 08:00 Room Air 06/05/17 07:50 37.7 100 26 158/100 (119) 95 Nasal Cannula 2.0 06/05/17 06:59 104 16 94 Nasal Cannula 2.0 06/05/17 04:21 37.2 95 18 122/65 (84) 95 06/05/17 04:00 Room Air 06/05/17 01:58 109 16 96 Room Air Physical Exam Comments: General Appearance: WD/WN, no apparent distress, + obese ENT: hearing grossly normal Neck: supple, no JVD, trachea midline Respiratory/Chest: no respiratory distress, no accessory muscle use, improved breath sounds Cardiovascular: regular rate, rhythm, + systolic murmur Abdomen: normal bowel sounds, non tender, soft Extremities: improved rash on right lower extremity Neurologic/Psychiatric: alert, oriented x 3 Skin: normal color, warm/dry Laboratory Results Last 24 Hours Test 06/05/17 05:43 White Blood Count 9.16 K/uL Red Blood Count 3.60 M/uL Hemoglobin 10.3 g/dL Hematocrit 33.3 % Mean Corpuscular Volume 92.5 fL Mean Corpuscular Hemoglobin 28.6 pg Mean Corpuscular Hemoglobin Concent 30.9 g/dl RDW Standard Deviation 53.7 fL RDW Coefficient of Variation 15.8 % Platelet Count 171 K/uL Mean Platelet Volume 11.4 fL Sodium Level 138 mmol/L Potassium Level 4.2 mmol/L Chloride Level 101 mmol/L Carbon Dioxide Level 34 mmol/L Anion Gap 3.0 mmol/L Blood Urea Nitrogen 35 mg/dl Creatinine 1.85 mg/dl Est Creatinine Clear Calc Drug Dose 24.6 ml/min Estimated GFR () 27.9 Estimated GFR (Non- 24.1 BUN/Creatinine Ratio 19.1 Random Glucose 99 mg/dl Calcium Level 8.6 mg/dl Magnesium Level 2.3 mg/dl Iron Level 43 mcg/dl Total Iron Binding Capacity 326 mcg/dl Transferrin 269 mg/dl Transferrin % Saturation 11 % Ferritin 66.1 ng/ml Assessment and Plan 87 year old female past medical history of chronic kidney disease stage III, lower back pain/spinal stenosis, neuropathy, myalgia and obesity presented to the ED with right lower extremity cellulitis, orthopnea, shortness of breath and significant weight gain. Acute on Chronic Diastolic CHF: IMPROVING - Lasix 20 mg daily - and continue to monitor kidney function - Diuresed for a negative balance of 1400ml - Updated echo - EF 60-65%, grade 1 diastolic dysfunction - she appears to be improving Asthma with Exacerbation: Possible Acute Bronchitis? - Reporting nonproductive cough - states she was recently treated for bronchitis as outpatient - Xopenex and Atrovent nebs, Advair 1 puff BID PRN, and Singulair 10 mg HS RLE Cellulitis with Lymphedema/Tinea Pedis: May be a rash - unsure if the pain is cellulitis as she has history of spinal stenosis - will give steroid as she has this rash on her right leg - Ceftriaxone 2 g IV daily - reporting some improvement with pain - Lasix 20 mg daily - and continue to monitor kidney function - Ketoconazole cream BID Intractable back pain likely from spinal stenosis patient on a opiate, however she becomes lethargic. will hold off. patient already on gabapentin will continue with tramadol reviewing previous records, patient has long standing history of back pain. she has been to the ER multiple times for her back pain will likely need outpatient followup. doubt she would be candidate for surigical procedures due to her comorbities. Morbid Obesity - Likely Sleep Apnea and Hypoventilation Syndrome: CKD Stage III - Currently at baseline with mild worsening of creatinine - currently 1.98 - Nephrology following - appreciate recommendations HTN: - Coreg 0.25 mg BID PMR: STABLE Asthma with Exacerbation: Possible Acute Bronchitis? DVT Prophylaxis: Heparin 5000 units SC Q8H Code Status: FULL RESUSCITATION Continued [facility] stay due to: multiple IV medications needed
[2017-06-06] MEDS: LEVALBUTEROL 1.25MG/0.5ML NEB INH SCH ×4 (02:05→18:50)
[2017-06-06] MEDS: IPRATROPIUM BROMIDE NEB SOLN 0.02% 2.5 ML VIAL INH SCH ×4 (02:05→18:50)
[2017-06-06] MEDS: ACETAMINOPHEN 325 MG TAB PO PRN ×3 (04:04→21:50)
[2017-06-06] MEDS: HEPARIN SOD 5000 UNIT/0.5 ML CARP SQ SCH ×3 (05:52→20:37)
[2017-06-06 06:27] LABS: HEMATOCRIT 29.1 % (37-47); HEMOGLOBIN 9.4 g/dL (12.0-16.0); MEAN CELL VOLUME 90.4 fL (80-100); MEAN CORPUSCULAR HEMOGLOBIN 29.2 pg (25-34); MEAN CORPUSCULAR HGB CONC 32.3 g/dl (32-36); MEAN PLATELET VOLUME 10.9 fL (7.4-10.4); PLATELET COUNT 149 K/uL (130-400); RED CELL DISTRIBUTION WIDTH CV 15.2 % (11.5-14.5); RED CELL DISTRIBUTION WIDTH SD 50.2 fL (36.4-46.3); WHITE BLOOD COUNT 7.08 K/uL (4.8-10.8)
[2017-06-06 06:58] LABS: CALCIUM 8.5 mg/dl (8.5-10.1); CREATININE 1.82 mg/dl (0.60-1.20); POTASSIUM 4.1 mmol/L (3.5-5.1)
[2017-06-06] MEDS: FLUTICASONE PROPIONATE NA SPR 16 GM BTL NAE SCH (08:16)
[2017-06-06] MEDS: KETOCONAZOLE 2% CR 15 GM TUBE EXT SCH ×2 (08:33→20:24)
[2017-06-06] MEDS: CARVEDILOL 6.25 MG TAB PO SCH ×2 (08:33→20:24)
[2017-06-06] MEDS: LACTOBACILLUS ACIDOPHILUS 1 GM PACK PO SCH ×3 (08:33→17:43)
[2017-06-06] MEDS: ERYTHROMYCIN OP OINT 5 MG/GM 3.5 GM TUBE OP SCH ×3 (08:33→20:24)
[2017-06-06] MEDS: GABAPENTIN 300 MG CAP PO SCH ×3 (08:33→20:24)
[2017-06-06] MEDS: BENZONATATE 100MG CAP PO SCH ×3 (08:33→20:26)
[2017-06-06] MEDS: PANTOprazole SOD 40 MG TAB PO SCH (08:33)
[2017-06-06] MEDS: PRAMIPEXOLE DIHYDROCHLORIDE 0.5 MG TAB PO SCH ×2 (08:34→20:25)
[2017-06-06] MEDS: FUROSEMIDE 20 MG TAB PO SCH (08:34)
[2017-06-06] MEDS: LIDODERM (LIDOCAINE) PATCH 5% TD SCH (08:35)
--- NOTE | 2017-06-06 12:33 | NEPHROLOGY PROGRESS NOTE ---
DATE: 06/06/2017 SUBJECTIVE: Mrs. Pan says that her major problem is pain in her right leg. She is also complaining of pain in her low back. She has a history of spinal stenosis and also a history of peripheral neuropathy. Currently, she denies shortness of breath on oxygen. She denies having any chest pain. She has no cough. She has no symptoms of uremia or volume overload. OBJECTIVE: GENERAL: On physical exam, she appears as an elderly, somewhat overweight woman of her stated age of 87. VITAL SIGNS: Her temperature is 36.7. Her blood pressure 106/48, her pulse 83 and regular, respiratory rate 20. Her pulse ox 95% on room air. SKIN: Shows normal skin turgor. She has no rash or infiltrative skin disease other than the right lower extremity rash, which seems to be slowly improving. LYMPHATICS: Show no palpable lymphadenopathy. HEAD: Normal. EYES: Grossly normal. The ocular fundi were not examined. EARS, NOSE, MOUTH AND THROAT: Unremarkable. She does wear dentures. Oral mucous membranes are moist. NECK: Supple. At about 45 degrees, she has no obvious jugular venous distention. I hear no carotid bruit and there is no thyromegaly. CHEST: Shows diminished breath sounds at the bases. She does have a few scattered rhonchi, but her chest is otherwise clear. CARDIAC: Shows a regular rhythm, S1 and S2 are normal. There is no murmur or gallop. ABDOMEN: Obese, but nontender. There is no organomegaly or mass. EXTREMITIES: Show 1+ edema of the right leg and trace of the left leg. She has the lower extremity rash on the right side from the mid calf down. It does not seem to be as red as it previously was. NEUROLOGIC: Shows no lateralizing changes. She does have a positive straight leg raising test on the right at only about 20 degrees. PERTINENT LABORATORY WORK: Shows a white count today of 7080. The differential was not done. Her hemoglobin 9.4, hematocrit 29.1. Her platelet count 149,000. Clinical chemistries show sodium of 134 mmol/L, potassium of 4.1 mmol/L, chloride of 98 mmol/L, and CO2 content of 31 mmol/L. Her BUN is 40. Her creatinine 1.82. Her serum calcium is 8.5. Her I and O shows that she is now diuresed about 6 liters since she has been here and her renal function has essentially been maintained at its baseline. ASSESSMENT: From the renal standpoint, she is now at baseline. The slight increase in her BUN over the course of the past few days with a decrease in her creatinine (again slight), I do think that she is at her baseline dry weight. She has an unremarkable urinalysis, which makes the probability of a progressive intrinsic renal disease less likely. I would therefore be concerned that she has a "cardiorenal syndrome" with her renal insufficiency. She also has an anemia that is in my mind somewhat disproportionate to her level of renal dysfunction. Her main complaint is pain in her right leg. She has a probable positive straight leg raising test. She has a history of spinal stenosis and a history of peripheral neuropathy as well. RECOMMENDATIONS: From the renal standpoint, I would not recommend any changes at this point. However, if her BUN and creatinine rise, we might want to try to cut back a bit further on her diuretic therapy. No other intervention from that perspective. Further neurologic evaluation regarding her lower extremity pain would likely be in order. Dr. Cabral will be following her for nephrology beginning tomorrow.
[2017-06-06] MEDS ORDERED: NURSING VERBAL MED ORDER ONE (15:00)
[2017-06-06] MEDS: CEFTRIAXONE SOD INJ 2000 MG in DEXTROSE 5% 50ML IV SCH (15:16)
[2017-06-06] MEDS ORDERED: NURSING DECISION MEDICATION ORDER SCH (18:15)
[2017-06-06] MEDS ORDERED: SODIUM CHLORIDE 0.65% NA SOLN 45 ML (OCEAN) PRN (18:30)
[2017-06-06] MEDS: MONTELUKAST SOD 10 MG TAB PO SCH (20:25)
--- NOTE | 2017-06-06 21:59 | Progress Note ---
Subjective Date of Service: Jun 06, 2017. Subjective Pt evaluation today including: conversation w/ patient, physical exam 87 yo female who has no new complaints. Patient continues to have back pain. Se states her rash has improved after receiving the steroids. Problem List Medical Problems: (1) Arthritis of shoulder region Status: Acute (2) Back pain Status: Acute (3) Bilateral leg edema Status: Acute (4) Bronchitis Status: Acute (5) Cellulitis Status: Acute (6) Cough Status: Acute (7) Hypokalemia Status: Acute Review of Systems Constitutional: No fever, No chills Respiratory: No cough, No sputum Cardiac: No chest pain Neurologic: No memory loss, No paralysis Heme: No abnormal bleeding/bruising Endo: No fatigue Skin: No rash All Other Systems: Reviewed and Negative Medications Current Inpatient Medications Medications (Trade) Dose Ordered Sig/[place] Route Start Time Stop Time Status Last Admin Dose Admin Heparin Sodium (Porcine) (Heparin Sq 5000 Unit/0.5ml) 5,000 unit Q8 SQ 06/02/17 22:00 07/02/17 21:59 06/07/17 05:15 5,000 UNIT Acetaminophen (Tylenol Tab) 650 mg Q4H PRN PO 06/02/17 12:15 07/02/17 12:14 06/06/17 21:50 650 MG Al Hydrox/Mg Hydrox/Simethicone (Maal[place] Max Susp) 15 ml Q4H PRN PO 06/02/17 12:15 07/02/17 12:14 Magnesium Hydroxide (Milk Of Magnesia Susp) 30 ml Q12H PRN PO 06/02/17 12:15 07/02/17 12:14 Zolpidem Tartrate (Ambien Tab) 5 mg HSZ PRN PO 06/02/17 12:15 07/02/17 12:14 06/07/17 01:29 5 MG Nitroglycerin (Nitrostat Tab) 0.4 mg UD PRN SL 06/02/17 12:15 07/02/17 12:14 Polyethylene (Miralax Powder Packet) 17 gm DAILY PRN PO 06/02/17 12:15 07/02/17 12:14 Lactobacillus Acidophilus (Lactinex Granules Pack) 1 gm TIDM PO 06/02/17 16:45 07/02/17 16:44 06/06/17 17:43 1 GM Ketoconazole (Nizoral 2% Crm) 1 appln BID EXT 06/02/17 21:00 08/03/17 12:15 06/06/17 20:24 1 APPLN Salmeterol Xinafoate/ Fluticasone (Advair Diskus 250/50 Inh) 1 puff BID PRN INH 06/02/17 12:30 07/02/17 12:29 Fluticasone Propionate (Flonase Nasal [place]) 2 sprays DAILY MARTY 06/03/17 09:00 07/03/17 08:59 Gabapentin (Neurontin Cap) 300 mg TID PO 06/02/17 21:00 07/02/17 20:59 06/06/17 20:24 300 MG Meclizine HCl (Antivert Tab) 25 mg TID PRN PO 06/02/17 12:30 07/02/17 12:29 Montelukast Sodium (Singulair Tab) 10 mg HS PO 06/02/17 21:00 07/02/17 20:59 06/06/17 20:25 10 MG Pantoprazole Sodium (Protonix Tab) 40 mg DAILY PO 06/03/17 09:00 07/03/17 08:59 06/06/17 08:33 40 MG Pramipexole Dihydrochloride (miraPEX TAB) 1 mg BID PO 06/02/17 21:00 07/02/17 20:59 06/06/17 20:25 1 MG Carvedilol (Coreg Tab) 6.25 mg BID PO 06/02/17 21:00 07/02/17 20:59 06/06/17 20:24 6.25 MG Ceftriaxone Sodium 2000 mg/ Dextrose 70 ml @ 140 mls/hr Q24H IV 06/02/17 14:30 06/12/17 14:29 06/06/17 15:16 140 MLS/HR Ipratropium [place] (Atrovent 0.02% 0.5MG/2.5ML Neb) 0.5 mg Q6R INH 06/02/17 21:00 07/02/17 20:59 06/07/17 07:14 0.5 MG Levalbuterol (Xopenex 1.25MG/ 0.5ML Neb) 1.25 mg Q6R INH 06/02/17 21:00 07/02/17 20:59 06/07/17 07:14 1.25 MG Oxycodone/ Acetaminophen (Percocet 5-325mg Tab) 1 tab Q6 PRN PO 06/02/17 20:00 06/16/17 19:59 06/05/17 00:43 1 TAB Lidocaine (Lidoderm Patch 5%) 1 patch QAM TD 06/04/17 09:00 07/04/17 08:59 06/06/17 08:35 1 PATCH Miscellaneous (Remove Lidoderm Patch) 1 ea DAILY@21 N/A 06/03/17 21:00 07/03/17 20:59 06/06/17 20:23 1 EA Furosemide (Lasix Tab) 20 mg QAM PO 06/04/17 09:00 07/04/17 08:59 06/06/17 08:34 20 MG Benzonatate (Tessalon Perles Cap) 100 mg TID PO 06/03/17 21:00 07/03/17 20:59 06/06/17 20:26 100 MG Erythromycin (Erythromycin Oph Oint) 1 appln TID OP 06/05/17 21:00 06/15/17 20:59 06/06/17 20:24 1 APPLN Sodium Chloride ([place] Nasal [place]) 2 sprays Q6H PRN NA 06/06/17 18:30 07/06/17 18:29 Objective Vital Signs Date Time Temp Pulse Resp B/P (MAP) Pulse Ox O2 Delivery O2 Flow Rate FiO2 06/06/17 19:11 37.1 89 26 134/73 (93) 92 Nasal Cannula 2.0 06/06/17 18:50 93 16 93 Room Air 06/06/17 16:00 Room Air 06/06/17 15:32 36.5 85 24 115/70 (85) 94 Room Air 06/06/17 14:28 80 16 97 Nasal Cannula 2.0 06/06/17 12:23 36.6 85 18 123/64 (83) 97 06/06/17 12:00 Room Air 06/06/17 08:13 36.7 83 20 106/48 (67) 95 Room Air 06/06/17 08:00 Room Air 06/06/17 07:15 79 16 96 Nasal Cannula 2.0 06/06/17 04:05 36.6 77 17 118/61 (80) 93 Nasal Cannula 2.0 06/06/17 04:00 Nasal Cannula 2.0 06/06/17 02:05 83 16 96 Nasal Cannula 2.0 06/05/17 23:59 Nasal Cannula 2.0 06/05/17 23:35 36.9 89 22 128/75 (92) 92 Nasal Cannula 2.0 Physical Exam Comments: General Appearance: WD/WN, no apparent distress, + obese ENT: hearing grossly normal Neck: supple, no JVD, trachea midline Respiratory/Chest: no respiratory distress, no accessory muscle use, improved breath sounds Cardiovascular: regular rate, rhythm, + systolic murmur Abdomen: normal bowel sounds, non tender, soft Extremities: improved rash on right lower extremity Neurologic/Psychiatric: alert, oriented x 3 Skin: normal color, warm/dry Laboratory Results Last 24 Hours Test 06/06/17 05:46 White Blood Count 7.08 K/uL Red Blood Count 3.22 M/uL Hemoglobin 9.4 g/dL Hematocrit 29.1 % Mean Corpuscular Volume 90.4 fL Mean Corpuscular Hemoglobin 29.2 pg Mean Corpuscular Hemoglobin Concent 32.3 g/dl RDW Standard Deviation 50.2 fL RDW Coefficient of Variation 15.2 % Platelet Count 149 K/uL Mean Platelet Volume 10.9 fL Sodium Level 134 mmol/L Potassium Level 4.1 mmol/L Chloride Level 98 mmol/L Carbon Dioxide Level 31 mmol/L Anion Gap 5.0 mmol/L Blood Urea Nitrogen 40 mg/dl Creatinine 1.82 mg/dl Est Creatinine Clear Calc Drug Dose 25.1 ml/min Estimated GFR () 28.4 Estimated GFR (Non- 24.5 BUN/Creatinine Ratio 22.1 Random Glucose 161 mg/dl Calcium Level 8.5 mg/dl Assessment and Plan 87 year old female past medical history of chronic kidney disease stage III, lower back pain/spinal stenosis, neuropathy, myalgia and obesity presented to the ED with right lower extremity cellulitis, orthopnea, shortness of breath and significant weight gain. Acute on Chronic Diastolic CHF: IMPROVING -she continues to improve - Lasix 20 mg daily - and continue to monitor kidney function - Diuresed for a negative balance of a totalt of approx. 6 liters - Updated echo - EF 60-65%, grade 1 diastolic dysfunction Asthma with Exacerbation: Possible Acute Bronchitis? - Reporting nonproductive cough - states she was recently treated for bronchitis as outpatient - Xopenex and Atrovent nebs, Advair 1 puff BID PRN, and Singulair 10 mg HS RLE Cellulitis with Lymphedema/Tinea Pedis: -likely a rash as steroids had helped. - unsure if the pain is cellulitis as she has history of spinal stenosis recommend titratins steroid on tuesday to 50mg for 2 days, than 40 mg for 2 days , etc - - Ceftriaxone 2 g IV daily - reporting some improvement with pain - Lasix 20 mg daily - and continue to monitor kidney function - Ketoconazole cream BID Intractable back pain likely from spinal stenosis patient on a opiate, however she becomes lethargic. will hold off. patient already on gabapentin had tramadol but did make her sleepy reviewing previous records, patient has long standing history of back pain. she has been to the ER multiple times for her back pain will likely need outpatient followup. doubt she would be candidate for surgical procedures due to her comorbities. rehab inpatient is now required as per PT Morbid Obesity - Likely Sleep Apnea and Hypoventilation Syndrome: CKD Stage III - Currently at baseline with mild worsening of creatinine - currently 1.98 - Nephrology following - appreciate recommendations HTN: - Coreg 0.25 mg BID PMR: STABLE Asthma with Exacerbation: Possible Acute Bronchitis? DVT Prophylaxis: Heparin 5000 units SC Q8H Code Status: FULL RESUSCITATION Disp: She now requires inpatient PT, which is why she was not discharged on Tuesday. Continued [facility] stay due to: multiple IV medications needed
[2017-06-07] VITALS (12 sets, daily range): BP systolic 105–153; BP diastolic 50–88; PULSE 85–97; TEMP 36.6–36.9; O2SAT 87–98
[2017-06-07] MEDS: IPRATROPIUM BROMIDE NEB SOLN 0.02% 2.5 ML VIAL INH SCH ×4 (01:48→19:08)
[2017-06-07] MEDS: LEVALBUTEROL 1.25MG/0.5ML NEB INH SCH ×4 (01:48→19:08)
[2017-06-07] MEDS: HEPARIN SOD 5000 UNIT/0.5 ML CARP SQ SCH ×3 (05:15→21:43)
[2017-06-07 05:56] LABS: HEMOGLOBIN 9.9 g/dL (12.0-16.0); MEAN CELL VOLUME 89.6 fL (80-100); MEAN CORPUSCULAR HEMOGLOBIN 28.6 pg (25-34); MEAN CORPUSCULAR HGB CONC 31.9 g/dl (32-36); MEAN PLATELET VOLUME 11.1 fL (7.4-10.4); PLATELET COUNT 161 K/uL (130-400); RED CELL DISTRIBUTION WIDTH CV 14.9 % (11.5-14.5); RED CELL DISTRIBUTION WIDTH SD 49.1 fL (36.4-46.3); WHITE BLOOD COUNT 8.14 K/uL (4.8-10.8)
[2017-06-07 06:28] LABS: CALCIUM 8.9 mg/dl (8.5-10.1); CREATININE 1.56 mg/dl (0.60-1.20); POTASSIUM 4.3 mmol/L (3.5-5.1)
[2017-06-07] MEDS: ERYTHROMYCIN OP OINT 5 MG/GM 3.5 GM TUBE OP SCH ×3 (08:21→21:22)
[2017-06-07] MEDS: PRAMIPEXOLE DIHYDROCHLORIDE 0.5 MG TAB PO SCH ×2 (08:21→21:23)
[2017-06-07] MEDS: BENZONATATE 100MG CAP PO SCH ×3 (08:21→21:24)
[2017-06-07] MEDS: KETOCONAZOLE 2% CR 15 GM TUBE EXT SCH ×2 (08:21→21:22)
[2017-06-07] MEDS: PANTOprazole SOD 40 MG TAB PO SCH (08:22)
[2017-06-07] MEDS: LIDODERM (LIDOCAINE) PATCH 5% TD SCH (08:22)
[2017-06-07] MEDS: FUROSEMIDE 20 MG TAB PO SCH (08:22)
[2017-06-07] MEDS: GABAPENTIN 300 MG CAP PO SCH ×3 (08:22→21:23)
[2017-06-07] MEDS: CARVEDILOL 6.25 MG TAB PO SCH ×2 (08:23→21:23)
[2017-06-07] MEDS: LACTOBACILLUS ACIDOPHILUS 1 GM PACK PO SCH ×3 (08:23→16:46)
[2017-06-07] MEDS: FLUTICASONE PROPIONATE NA SPR 16 GM BTL NAE SCH (09:00)
--- NOTE | 2017-06-07 09:19 | Nephrology Progress Note ---
Nephrology Progress Note Date of Service Jun 07, 2017. Chief Complaint Evaluation of acute on chronic kidney injury Subjective Ms. Pan was seen & examined in the ICU this morning. She complains or generalized weakness and RLE discomfort but voices no other medical concerns. Ms. Pan is nonoliguric. I&O's were essentially matched over last 24 hours. Review of Systems Constitutional: No fever Cardiovascular: No chest pain Respiratory: No dyspnea at rest Abdomen: No pain, No nausea, No vomiting Extremities: + leg edema A complete review of systems was performed. Pertinent positives are noted above. All other systems are negative. Vital Signs Last 8 Hrs Date Time Temp Pulse Resp B/P (MAP) Pulse Ox O2 Delivery O2 Flow Rate FiO2 06/07/17 08:46 36.8 97 18 140/88 (105) 97 06/07/17 07:15 87 16 96 Nasal Cannula 2.0 06/07/17 04:00 Nasal Cannula 2.0 06/07/17 03:57 36.6 86 21 112/50 (70) 90 Nasal Cannula 2.0 06/07/17 01:48 90 16 95 Nasal Cannula 2.0 Last Recorded Weight Weight (Kilograms): 99.100 Physical Exam General Appearance: no apparent distress Head: normocephalic, atraumatic Eyes: PERRL, EOMI Neck: no adenopathy Respiratory/Chest: lungs clear, no respiratory distress Cardiovascular: regular rate, rhythm Abdomen/GI: normal bowel sounds, non tender, soft Extremities/Musculoskelatal: + pertinent finding (trace pretibial pitting edema. Faint petechial rash involving the pretibial region of both legs) Neurologic/Psych: alert, oriented x 3 Family History No pertinent family history Social History Smoking Status: Former smoker Drug Use: none Marital Status: Housing Status: lives alone Occupation: retired Laboratory Results Past 24 Hours 06/07/17 05:40 06/07/17 05:40 Test 06/07/17 05:40 Red Blood Count 3.46 M/uL (4.2-5.4) Mean Corpuscular Volume 89.6 fL (80-100) Mean Corpuscular Hemoglobin 28.6 pg (25-34) Mean Corpuscular Hemoglobin Concent 31.9 g/dl (32-36) RDW Standard Deviation 49.1 fL (36.4-46.3) RDW Coefficient of Variation 14.9 % (11.5-14.5) Mean Platelet Volume 11.1 fL (7.4-10.4) Anion Gap 3.0 mmol/L (3-11) Est Creatinine Clear Calc Drug Dose 29.3 ml/min Estimated GFR () 34.3 Estimated GFR (Non- 29.6 BUN/Creatinine Ratio 29.5 (10-20) Calcium Level 8.9 mg/dl (8.5-10.1) Allergies Coded Allergies: Iodine (Verified Allergy, Intermediate, RASH, 06/04/17) Levofloxacin (Verified Allergy, Intermediate, red painful skin,itching, burning, 06/02/17) Aspirin (Verified Allergy, Unknown, UNKNOWN, 06/02/17) Cefdinir (Verified Allergy, Unknown, UNKNOWN, 06/02/17) Penicillins (Verified Allergy, Unknown, 06/02/17) Venlafaxine (Verified Allergy, Unknown, UNKNOWN, 06/02/17) Tapentadol (Verified Adverse Reaction, Intermediate, "drunk as a hoot owl ", 06/04/17) pt/gmg Amoxicillin (Verified Adverse Reaction, Mild, G I UPSET, 06/04/17) Cephalosporins (Verified Adverse Reaction, Mild, G I UPSET, 06/04/17) Codeine (Verified Adverse Reaction, Mild, GI UPSET, 06/02/17) Sulfa Antibiotics (Verified Adverse Reaction, Mild, GI UPSET, 06/04/17) Medications Current Inpatient Medications Medications (Trade) Dose Ordered Sig/[place] Route Start Time Stop Time Status Last Admin Dose Admin Heparin Sodium (Porcine) (Heparin Sq 5000 Unit/0.5ml) 5,000 unit Q8 SQ 06/02/17 22:00 07/02/17 21:59 06/07/17 05:15 5,000 UNIT Acetaminophen (Tylenol Tab) 650 mg Q4H PRN PO 06/02/17 12:15 07/02/17 12:14 06/06/17 21:50 650 MG Al Hydrox/Mg Hydrox/Simethicone (Maalox Max Susp) 15 ml Q4H PRN PO 06/02/17 12:15 07/02/17 12:14 Magnesium Hydroxide (Milk Of Magnesia Susp) 30 ml Q12H PRN PO 06/02/17 12:15 07/02/17 12:14 Zolpidem Tartrate (Ambien Tab) 5 mg HSZ PRN PO 06/02/17 12:15 07/02/17 12:14 06/07/17 01:29 5 MG Nitroglycerin (Nitrostat Tab) 0.4 mg UD PRN SL 06/02/17 12:15 07/02/17 12:14 Polyethylene (Miralax Powder Packet) 17 gm DAILY PRN PO 06/02/17 12:15 07/02/17 12:14 Lactobacillus Acidophilus (Lactinex Granules Pack) 1 gm TIDM PO 06/02/17 16:45 07/02/17 16:44 06/07/17 08:23 1 GM Ketoconazole (Nizoral 2% Crm) 1 appln BID EXT 06/02/17 21:00 08/03/17 12:15 06/07/17 08:21 1 APPLN Salmeterol Xinafoate/ Fluticasone (Advair Diskus 250/50 Inh) 1 puff BID PRN INH 06/02/17 12:30 07/02/17 12:29 Fluticasone Propionate (Flonase Nasal [place]) 2 sprays DAILY MARTY 06/03/17 09:00 07/03/17 08:59 Gabapentin (Neurontin Cap) 300 mg TID PO 06/02/17 21:00 07/02/17 20:59 06/07/17 08:22 300 MG Meclizine HCl (Antivert Tab) 25 mg TID PRN PO 06/02/17 12:30 07/02/17 12:29 Montelukast Sodium (Singulair Tab) 10 mg HS PO 06/02/17 21:00 07/02/17 20:59 06/06/17 20:25 10 MG Pantoprazole Sodium (Protonix Tab) 40 mg DAILY PO 06/03/17 09:00 07/03/17 08:59 06/07/17 08:22 40 MG Pramipexole Dihydrochloride (miraPEX TAB) 1 mg BID PO 06/02/17 21:00 07/02/17 20:59 06/07/17 08:21 1 MG Carvedilol (Coreg Tab) 6.25 mg BID PO 06/02/17 21:00 07/02/17 20:59 06/07/17 08:23 6.25 MG Ceftriaxone Sodium 2000 mg/ Dextrose 70 ml @ 140 mls/hr Q24H IV 06/02/17 14:30 06/12/17 14:29 06/06/17 15:16 140 MLS/HR Ipratropium [place] (Atrovent 0.02% 0.5MG/2.5ML Neb) 0.5 mg Q6R INH 06/02/17 21:00 07/02/17 20:59 06/07/17 07:14 0.5 MG Levalbuterol (Xopenex 1.25MG/ 0.5ML Neb) 1.25 mg Q6R INH 06/02/17 21:00 07/02/17 20:59 06/07/17 07:14 1.25 MG Oxycodone/ Acetaminophen (Percocet 5-325mg Tab) 1 tab Q6 PRN PO 06/02/17 20:00 06/16/17 19:59 06/05/17 00:43 1 TAB Lidocaine (Lidoderm Patch 5%) 1 patch QAM TD 06/04/17 09:00 07/04/17 08:59 06/07/17 08:22 1 PATCH Miscellaneous (Remove Lidoderm Patch) 1 ea DAILY@21 N/A 06/03/17 21:00 07/03/17 20:59 06/06/17 20:23 1 EA Furosemide (Lasix Tab) 20 mg QAM PO 06/04/17 09:00 07/04/17 08:59 06/07/17 08:22 20 MG Benzonatate (Tessalon Perles Cap) 100 mg TID PO 06/03/17 21:00 07/03/17 20:59 06/07/17 08:21 100 MG Erythromycin (Erythromycin Oph Oint) 1 appln TID OP 06/05/17 21:00 06/15/17 20:59 06/07/17 08:21 1 APPLN Sodium Chloride ([place] Nasal [place]) 2 sprays Q6H PRN NA 06/06/17 18:30 07/06/17 18:29 Impression (1) CKD (chronic kidney disease), stage IV (2) HARJINDER (obstructive sleep apnea) (3) Venous insufficiency (4) Diastolic CHF (5) Lymphedema Sahra is an 87-year-old female with CKD IV A1. UA yon. CKD can be attributed to nephrosclerosis and microvascular disease as well as senescence. CT of the abdomen from 2013 is notable for mild to moderate cortical atrophy with at least one simple cyst noted in the right kidney. Creatinine has been 1.6-2.0 mg/dL since at least 2012. Patient was seen by [facility] 09/23 for NPE. Her creatinine was 1.7 at that time. She did not keep her follow up appointment. Sahra has chronic lower extremity lymphedema and venous insufficiency. She receives regular lymphedema treatment as an outpatient through [facility]. She suffers from obesity and untreated HARJINDER. She has diastolic dysfunction. She also has mild anemia. All of these factors including her renal dysfunction likely contribute to her lower extremity edema. Baseline activity tolerance is limited due to OA/DJD and spinal stenosis. Serum albumin is normal. 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 Sahra has asymmetric right > left edema. There are localized changes in the right lower extremity. Lower extremity duplex was negative for DVT. The patient lives alone. She has two sons (Bernardo and Horacio) who live locally and provide assistance of a regular basis. Sahra does not drive. Disposition is pending. PT evaluation will be appreciated to assist with disposition. Recommendations ACUTE KIDNEY INJURY: -- Resolved. Electrolyte balance is acceptable CHRONIC KIDNEY DISEASE: -- Baseline creatinine has been 1.7. CKD is on the basis of microvascular disease and hypertensive nephrosclerosis -- Urinalysis is negative for blood or protein -- Monitor serial PRP ANEMIA: -- Mild, asymptomatic anemia. Continue to monitor -- Patient has iron deficiency. If Hgb trends down will consider oral or IV iron therapy DIASTOLIC CHF: -- Compression stockings to LLE and keep feet elevated OTHER: -- Consult PT for bedside strengthening
[2017-06-07] MEDS: ACETAMINOPHEN 500 MG TAB PO SCH ×2 (13:54→21:42)
[2017-06-07] MEDS: CEFTRIAXONE SOD INJ 2000 MG in DEXTROSE 5% 50ML IV SCH (13:55)
--- NOTE | 2017-06-07 17:35 | Hospitalist Progress Note ---
Hospitalist Progress Note Date of Service Jun 07, 2017. (Zahraa Lira CRNP) Subjective Pt evaluation today including: conversation w/ patient, physical exam, chart review, lab review, review of inpatient medication list Voiding: no incontinence Ms. Pan feels better but continues to require O2 at night though she does not feel sob anymore. She continues to have a nonproductive cough. She reports rash on her leg is itchy once and a while. Her backpain is a 4-7/10 and has not improved during her stay. It radiates down her buttock and into her right thigh ROS Constitutional: no chills, aches, sweats or fever Respiratory: no sob, sputum, or wheezing Cardiac: no chest pain, palpitations, edema, orthopnea or lightheadedness GI: no abdominal pain, nausea, vomiting, diarrhea or constipation : no dysuria or hesitancy Extremities: see HPI Skin: no rash All Other Systems: Reviewed and Negative (Zahraa Lira CRNP) Medications Medications (Trade) Dose Ordered Sig/[place] Route Start Time Stop Time Status Last Admin Dose Admin Prednisone (PredniSONE TAB) 50 mg TODAY@1500 PO 06/07/17 15:00 06/07/17 18:00 06/07/17 16:42 50 MG Acetaminophen (Tylenol Tab) 1,000 mg Q8 PO 06/07/17 14:00 07/07/17 13:59 06/07/17 13:54 1,000 MG (Zahraa Lira CRNP) Objective Vital Signs Date Time Temp Pulse Resp B/P (MAP) Pulse Ox O2 Delivery O2 Flow Rate FiO2 06/07/17 16:37 36.6 87 22 105/76 (86) 94 Nasal Cannula 2.0 06/07/17 14:17 85 16 87 Room Air 06/07/17 12:13 36.8 96 18 130/79 (96) 98 06/07/17 12:05 Room Air 06/07/17 08:46 36.8 97 18 140/88 (105) 97 06/07/17 08:05 Room Air 06/07/17 07:15 87 16 96 Nasal Cannula 2.0 06/07/17 04:00 Nasal Cannula 2.0 06/07/17 03:57 36.6 86 21 112/50 (70) 90 Nasal Cannula 2.0 06/07/17 01:48 90 16 95 Nasal Cannula 2.0 06/06/17 23:59 Nasal Cannula 2.0 06/06/17 23:41 37.1 85 23 112/54 (73) 94 Nasal Cannula 2.0 06/06/17 20:00 Nasal Cannula 2.0 06/06/17 19:11 37.1 89 26 134/73 (93) 92 Nasal Cannula 2.0 06/06/17 18:50 93 16 93 Room Air (Zahraa Lira CRNP) Physical Exam Notes: General: no distress Eyes: normal inspection, PERLL Respiratory: chest non tender, clear to auscultation, normal breath sounds, no respiratory distress, no accessory muscle use Cardiac: regular rate and rhythm, no rub or gallop, no murmur, no edema, no jvd GI/: active bowel sounds, no abd pain or tenderness, soft, non distended Extremities: normal range of motion, normal strength, non tender Neuro/Psych: alert and oriented x 3, normal mood and affect Skin: normal color, dry, right leg and arm papular rash (Zahraa Lira CRNP) Laboratory Results Last 24 Hours Test 06/07/17 05:40 White Blood Count 8.14 K/uL Red Blood Count 3.46 M/uL Hemoglobin 9.9 g/dL Hematocrit 31.0 % Mean Corpuscular Volume 89.6 fL Mean Corpuscular Hemoglobin 28.6 pg Mean Corpuscular Hemoglobin Concent 31.9 g/dl RDW Standard Deviation 49.1 fL RDW Coefficient of Variation 14.9 % Platelet Count 161 K/uL Mean Platelet Volume 11.1 fL Sodium Level 135 mmol/L Potassium Level 4.3 mmol/L Chloride Level 100 mmol/L Carbon Dioxide Level 32 mmol/L Anion Gap 3.0 mmol/L Blood Urea Nitrogen 46 mg/dl Creatinine 1.56 mg/dl Est Creatinine Clear Calc Drug Dose 29.3 ml/min Estimated GFR () 34.3 Estimated GFR (Non- 29.6 BUN/Creatinine Ratio 29.5 Random Glucose 137 mg/dl Calcium Level 8.9 mg/dl (Zahraa Lira CRNP) Assessment and Plan 87 year old female past medical history of chronic kidney disease stage III, lower back pain/spinal stenosis, neuropathy, myalgia and obesity presented to the ED with right lower extremity cellulitis, orthopnea, shortness of breath and significant weight gain. Acute on Chronic Diastolic CHF: - she continues to improve - Lasix 20 mg daily - and continue to monitor kidney function - Diuresed for a negative balance of a totalt of approx. 6 liters - Updated echo - EF 60-65%, grade 1 diastolic dysfunction Recent acute bronchitis - treated for bronchitis as outpatient - Xopenex and Atrovent nebs, Advair 1 puff BID PRN, and Singulair 10 mg HS - continue nighttime 2l nc prn Papular rash lower right leg and right arm: - stopped Ceftriaxone 2 g IV daily - does not appear infectious - taper steroids - Ketoconazole cream BID Intractable back pain likely from spinal stenosis - chronic - d/c'd oxycodone due to lethargy yesterday after administratio - acetaminophen 1 g tid - continue gabapentin - PT recommends inpatient rehab. - consult ortho CKD Stage III - Creat improving to 1.56 - Nephrology following - appreciate recommendations HTN: - Coreg 0.25 mg BID PMR: STABLE DVT Prophylaxis: Heparin 5000 units SC Q8H Code Status: FULL RESUSCITATION Dispo - awaiting placement for rehab (Zahraa Lira ., NAYA) Reviewed: Pt Seen/Exam by Me (Susan Fraga MD) History [employer] Supervision Note: I interviewed and examined the patient. Discussed with NAYA Lira and agree with findings and plan as documented in the note. Any exceptions or clarifications are listed here: Patient feeling better, still is complaining of lower back pain radiating down her legs. Still has a pruritic rash on her arms and legs. Vitals reviewed, telemetry reviewed which shows sinus rhythm with PACs rates in the 90s RRR, no murmurs rubs or gallops Lungs clear to auscultation bilaterally Abdomen positive bowel sounds soft nontender nondistended Extremities with 1+ pitting edema Skin with nonblanching for the most part erythematous macular rash on anterior tibia right greater than left, as well as proximal upper extremities 87-year-old female here with worsening shortness of breath, right lower extremity pruritic rash and suspected cellulitis, abnormal weight gain and likely acute on chronic diastolic CHF. She also has acute on chronic lower back pain with radiculopathy. -No evidence of cellulitis at this time, has received 6 days of IV ceftriaxone- discontinue at this time -Continue to taper down the prednisone that was started for her rash of unknown origin -Stable on by mouth Lasix and diuresing well -Consult orthopedic spine for evaluation of her lower back pain with radiculopathy -Will need placement Documented By: Susan Fraga (Susan Fraga MD)
[2017-06-07] MEDS: MONTELUKAST SOD 10 MG TAB PO SCH (21:24)
[2017-06-08] VITALS (8 sets, daily range): BP systolic 130–162; BP diastolic 66–76; PULSE 76–87; TEMP 36.5–36.8; O2SAT 90–97
[2017-06-08] MEDS: IPRATROPIUM BROMIDE NEB SOLN 0.02% 2.5 ML VIAL INH SCH ×4 (02:14→19:22)
[2017-06-08] MEDS: LEVALBUTEROL 1.25MG/0.5ML NEB INH SCH ×4 (02:14→19:22)
[2017-06-08] MEDS: ACETAMINOPHEN 500 MG TAB PO SCH ×3 (05:31→21:24)
[2017-06-08] MEDS: HEPARIN SOD 5000 UNIT/0.5 ML CARP SQ SCH ×3 (05:32→21:27)
[2017-06-08 06:36] LABS: HEMATOCRIT 31.1 % (37-47); HEMOGLOBIN 9.8 g/dL (12.0-16.0); MEAN CELL VOLUME 91.2 fL (80-100); MEAN CORPUSCULAR HEMOGLOBIN 28.7 pg (25-34); MEAN CORPUSCULAR HGB CONC 31.5 g/dl (32-36); MEAN PLATELET VOLUME 11.4 fL (7.4-10.4); PLATELET COUNT 173 K/uL (130-400); RED CELL DISTRIBUTION WIDTH CV 15.3 % (11.5-14.5); WHITE BLOOD COUNT 7.27 K/uL (4.8-10.8)
[2017-06-08 07:11] LABS: CREATININE 1.51 mg/dl (0.60-1.20); POTASSIUM 4.4 mmol/L (3.5-5.1)
[2017-06-08] MEDS: KETOCONAZOLE 2% CR 15 GM TUBE EXT SCH ×2 (07:24→21:57)
[2017-06-08] MEDS: BENZONATATE 100MG CAP PO SCH ×3 (07:25→21:23)
[2017-06-08] MEDS: LACTOBACILLUS ACIDOPHILUS 1 GM PACK PO SCH ×3 (07:25→17:40)
[2017-06-08] MEDS: FUROSEMIDE 20 MG TAB PO SCH (07:25)
[2017-06-08] MEDS: PANTOprazole SOD 40 MG TAB PO SCH (07:25)
[2017-06-08] MEDS: PRAMIPEXOLE DIHYDROCHLORIDE 0.5 MG TAB PO SCH ×2 (07:26→21:23)
[2017-06-08] MEDS: GABAPENTIN 300 MG CAP PO SCH ×2 (07:26→12:57)
[2017-06-08] MEDS: ERYTHROMYCIN OP OINT 5 MG/GM 3.5 GM TUBE OP SCH ×3 (07:26→21:57)
[2017-06-08] MEDS: CARVEDILOL 6.25 MG TAB PO SCH ×2 (07:27→21:23)
[2017-06-08] MEDS: LIDODERM (LIDOCAINE) PATCH 5% TD SCH (07:31)
[2017-06-08] MEDS: FLUTICASONE PROPIONATE NA SPR 16 GM BTL NAE SCH (09:20)
--- NOTE | 2017-06-08 10:17 | Nephrology Progress Note ---
Nephrology Progress Note Date of Service Jun 08, 2017. Chief Complaint Evaluation of acute on chronic kidney injury Subjective Ms. Pan was seen & examined in the PCU this morning. She reports that her lower extremity swelling is greatly improved and her rash has essentially resolved. Ms. Pan was able to participate in physical therapy yesterday. She was able to sit up on her own and walked 16 ft with assistance. She voices no new medical concerns. Review of Systems Constitutional: No fever Cardiovascular: No chest pain Respiratory: No dyspnea at rest Abdomen: No pain, No nausea, No vomiting A complete review of systems was performed. Pertinent positives are noted above. All other systems are negative. Vital Signs Last 8 Hrs Date Time Temp Pulse Resp B/P (MAP) Pulse Ox O2 Delivery O2 Flow Rate FiO2 06/08/17 08:29 36.8 81 18 159/70 (99) 97 06/08/17 08:00 Room Air 06/08/17 07:14 76 16 97 Nasal Cannula 2.0 06/08/17 05:38 76 16 90 Room Air 06/08/17 04:17 36.6 83 18 130/66 (87) 94 Nasal Cannula 2.0 06/08/17 04:00 Nasal Cannula 2.0 Last Recorded Weight Weight (Kilograms): 99.100 Physical Exam General Appearance: no apparent distress Head: normocephalic, atraumatic Eyes: PERRL, EOMI Neck: no adenopathy Respiratory/Chest: lungs clear, no respiratory distress Cardiovascular: regular rate, rhythm Abdomen/GI: normal bowel sounds, non tender, soft Extremities/Musculoskelatal: + pertinent finding (trace pretibial pitting edema. Pretibial petechial skin rash is notably improved.) Neurologic/Psych: no motor/sensory deficits, oriented x 3 Family History No pertinent family history Social History Smoking Status: Former smoker Drug Use: none Marital Status: Housing Status: lives alone Occupation: retired Laboratory Results Past 24 Hours 06/08/17 06:15 06/08/17 06:15 Test 06/08/17 06:15 Red Blood Count 3.41 M/uL (4.2-5.4) Mean Corpuscular Volume 91.2 fL (80-100) Mean Corpuscular Hemoglobin 28.7 pg (25-34) Mean Corpuscular Hemoglobin Concent 31.5 g/dl (32-36) RDW Standard Deviation 51.0 fL (36.4-46.3) RDW Coefficient of Variation 15.3 % (11.5-14.5) Mean Platelet Volume 11.4 fL (7.4-10.4) Anion Gap 4.0 mmol/L (3-11) Est Creatinine Clear Calc Drug Dose 30.0 ml/min Estimated GFR () 35.6 Estimated GFR (Non- 30.8 BUN/Creatinine Ratio 29.9 (10-20) Calcium Level 9.0 mg/dl (8.5-10.1) Allergies Coded Allergies: Iodine (Verified Allergy, Intermediate, RASH, 06/04/17) Levofloxacin (Verified Allergy, Intermediate, red painful skin,itching, burning, 06/02/17) Aspirin (Verified Allergy, Unknown, UNKNOWN, 06/02/17) Cefdinir (Verified Allergy, Unknown, UNKNOWN, 06/02/17) Penicillins (Verified Allergy, Unknown, 06/02/17) Venlafaxine (Verified Allergy, Unknown, UNKNOWN, 06/02/17) Tapentadol (Verified Adverse Reaction, Intermediate, "drunk as a hoot owl ", 06/04/17) pt/gmg Amoxicillin (Verified Adverse Reaction, Mild, G I UPSET, 06/04/17) Cephalosporins (Verified Adverse Reaction, Mild, G I UPSET, 06/04/17) Codeine (Verified Adverse Reaction, Mild, GI UPSET, 06/02/17) Sulfa Antibiotics (Verified Adverse Reaction, Mild, GI UPSET, 06/04/17) Medications Current Inpatient Medications Medications (Trade) Dose Ordered Sig/Clinton Route Start Time Stop Time Status Last Admin Dose Admin Heparin Sodium (Porcine) (Heparin Sq 5000 Unit/0.5ml) 5,000 unit Q8 SQ 06/02/17 22:00 07/02/17 21:59 06/08/17 05:32 5,000 UNIT Acetaminophen (Tylenol Tab) 650 mg Q4H PRN PO 06/02/17 12:15 07/02/17 12:14 Future Hold 06/06/17 21:50 650 MG Al Hydrox/Mg Hydrox/Simethicone (Maalox Max Susp) 15 ml Q4H PRN PO 06/02/17 12:15 07/02/17 12:14 Magnesium Hydroxide (Milk Of Magnesia Susp) 30 ml Q12H PRN PO 06/02/17 12:15 07/02/17 12:14 Zolpidem Tartrate (Ambien Tab) 5 mg HSZ PRN PO 06/02/17 12:15 07/02/17 12:14 06/07/17 01:29 5 MG Nitroglycerin (Nitrostat Tab) 0.4 mg UD PRN SL 06/02/17 12:15 07/02/17 12:14 Polyethylene (Miralax Powder Packet) 17 gm DAILY PRN PO 06/02/17 12:15 07/02/17 12:14 Lactobacillus Acidophilus (Lactinex Granules Pack) 1 gm TIDM PO 06/02/17 16:45 07/02/17 16:44 06/08/17 07:25 1 GM Ketoconazole (Nizoral 2% Crm) 1 appln BID EXT 06/02/17 21:00 08/03/17 12:15 06/08/17 07:24 1 APPLN Salmeterol Xinafoate/ Fluticasone (Advair Diskus 250/50 Inh) 1 puff BID PRN INH 06/02/17 12:30 07/02/17 12:29 Fluticasone Propionate (Flonase Nasal [place]) 2 sprays DAILY MARTY 06/03/17 09:00 07/03/17 08:59 06/08/17 09:20 2 SPRAYS Gabapentin (Neurontin Cap) 300 mg TID PO 06/02/17 21:00 07/02/17 20:59 06/08/17 07:26 300 MG Meclizine HCl (Antivert Tab) 25 mg TID PRN PO 06/02/17 12:30 07/02/17 12:29 Montelukast Sodium (Singulair Tab) 10 mg HS PO 06/02/17 21:00 07/02/17 20:59 06/07/17 21:24 10 MG Pantoprazole Sodium (Protonix Tab) 40 mg DAILY PO 06/03/17 09:00 07/03/17 08:59 06/08/17 07:25 40 MG Pramipexole Dihydrochloride (miraPEX TAB) 1 mg BID PO 06/02/17 21:00 1/20/18 20:59 06/08/17 07:26 1 MG Carvedilol (Coreg Tab) 6.25 mg BID PO 06/02/17 21:00 07/02/17 20:59 06/08/17 07:27 6.25 MG Ipratropium [place] (Atrovent 0.02% 0.5MG/2.5ML Neb) 0.5 mg Q6R INH 06/02/17 21:00 07/02/17 20:59 06/08/17 07:14 0.5 MG Levalbuterol (Xopenex 1.25MG/ 0.5ML Neb) 1.25 mg Q6R INH 06/02/17 21:00 07/02/17 20:59 06/08/17 07:14 1.25 MG Lidocaine (Lidoderm Patch 5%) 1 patch QAM TD 06/04/17 09:00 07/04/17 08:59 06/08/17 07:31 1 PATCH Miscellaneous (Remove Lidoderm Patch) 1 ea DAILY@21 N/A 06/03/17 21:00 07/03/17 20:59 06/07/17 21:22 1 EA Furosemide (Lasix Tab) 20 mg QAM PO 06/04/17 09:00 07/04/17 08:59 06/08/17 07:25 20 MG Benzonatate (Tessalon Perles Cap) 100 mg TID PO 06/03/17 21:00 07/03/17 20:59 06/08/17 07:25 100 MG Erythromycin (Erythromycin Oph Oint) 1 appln TID OP 06/05/17 21:00 06/15/17 20:59 06/08/17 07:26 1 APPLN Sodium Chloride ([place] Nasal [place]) 2 sprays Q6H PRN NA 06/06/17 18:30 07/06/17 18:29 Acetaminophen (Tylenol Tab) 1,000 mg Q8 PO 06/07/17 14:00 07/07/17 13:59 06/08/17 05:31 1,000 MG Impression (1) CKD (chronic kidney disease), stage IV (2) HARJINDER (obstructive sleep apnea) (3) Venous insufficiency (4) Diastolic CHF (5) Lymphedema Sahra is an 87-year-old female with CKD IV A1. UA bland. CKD can be attributed to nephrosclerosis and microvascular disease as well as senescence. CT of the abdomen from 2013 is notable for mild to moderate cortical atrophy with at least one simple cyst noted in the right kidney. Creatinine has been 1.6-2.0 mg/dL since at least 2012. Patient was seen by [facility] 09/23 for NPE. Her creatinine was 1.7 at that time. She did not keep her follow up appointment. Sahra has chronic lower extremity lymphedema and venous insufficiency. She receives regular lymphedema treatment as an outpatient through [facility]. She suffers from obesity and untreated HARJINDER. She has diastolic dysfunction. She also has mild anemia. All of these factors including her renal dysfunction likely contribute to her lower extremity edema. Baseline activity tolerance is limited due to OA/DJD and spinal stenosis. Serum albumin is normal. 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 Sahra has asymmetric right > left edema. There are localized changes in the right lower extremity. Lower extremity duplex was negative for DVT. The patient lives alone. She has two sons (Bernardo and Horacio) who live locally and provide assistance of a regular basis. Sahra does not drive. Disposition is pending. PT evaluation will be appreciated to assist with disposition. Recommendations ACUTE KIDNEY INJURY: -- Resolved. Electrolyte balance is acceptable CHRONIC KIDNEY DISEASE: -- Baseline creatinine has been 1.7. CKD is on the basis of microvascular disease and hypertensive nephrosclerosis -- Urinalysis is negative for blood or protein -- Monitor serial PRP ANEMIA: -- Mild, asymptomatic anemia. Continue to monitor -- Patient has iron deficiency. If Hgb trends down will consider oral or IV iron therapy DIASTOLIC CHF: -- Compression stockings to LLE and keep feet elevated -- Continue Furosemide 20 mg daily -- Will ask dietitian to provide patient with education on a low sodium diet OTHER: -- Continue PT for bedside strengthening Patient has returned to her baseline kidney function. Urine sediment was bland. No further Nephrology evaluation indicated at this time. Recommend continuing daily low dose Furosemide. Will ask dietitian to provide education on a low sodium diet. Will sign off. Please call if further Nephrology assistance is needed. We discussed outpatient follow up. Kidney function has been stable w/ creatinine 1.7 dating back to 2012 and urine sediment has been bland. Patient does not desire additional office visits. She will monitor function w/ her PCP. If she changes her mind we will be happy to see her in the [facility] Nephrology office.
--- NOTE | 2017-06-08 13:28 | Hospitalist Progress Note ---
Hospitalist Progress Note Date of Service Jun 08, 2017. (Zahraa Lira .NAYA) Subjective Pt evaluation today including: conversation w/ patient, physical exam, chart review, lab review, review of inpatient medication list Voiding: no voiding problems Ms. Pan continues to complain of back pain with radiculopathy to right leg that extends to her foot. She denies sob however she continues to cough with little sputum production. Rash on right leg and right arm is improving ROS Constitutional: no chills, aches, sweats or fever Respiratory: see HPI Cardiac: no chest pain, palpitations, edema, orthopnea or lightheadedness GI: no abdominal pain, nausea, vomiting, diarrhea or constipation : no dysuria or hesitancy Extremities: see HPI Skin: see HPI All Other Systems: Reviewed and Negative (Zahraa Lira CRNP) Medications Medications Administered Medications (Trade) Dose Ordered Sig/Clinton Route Start Time Stop Time Status Last Admin Dose Admin Furosemide (Lasix Inj) 40 mg NOW STAT IV 06/02/17 10:47 06/02/17 10:49 DC 06/02/17 11:29 40 MG Acetaminophen (Tylenol Tab) 1,000 mg STK-MED ONCE PO 06/02/17 10:57 06/02/17 10:58 DC 06/02/17 10:59 1,000 MG Miscellaneous Information (Nursing Verbal Med Order) 1 ea ONE ONCE N/A 06/02/17 11:15 06/02/17 11:16 DC 06/02/17 11:15 1 EA Heparin Sodium (Porcine) (Heparin Sq 5000 Unit/0.5ml) 5,000 unit Q8 SQ 06/02/17 22:00 07/02/17 21:59 06/08/17 13:03 5,000 UNIT Acetaminophen (Tylenol Tab) 650 mg Q4H PRN PO 06/02/17 12:15 07/02/17 12:14 Future Hold 06/06/17 21:50 650 MG Zolpidem Tartrate (Ambien Tab) 5 mg HSZ PRN PO 06/02/17 12:15 07/02/17 12:14 06/07/17 01:29 5 MG Furosemide 100 mg/ Dextrose 100 ml @ 4 mls/hr Q24H IV 06/02/17 15:15 06/03/17 08:12 DC 06/02/17 15:58 4 MLS/HR Lactobacillus Acidophilus (Lactinex Granules Pack) 1 gm TIDM PO 06/02/17 16:45 07/02/17 16:44 06/08/17 11:33 1 GM Ketoconazole (Nizoral 2% Crm) 1 appln BID EXT 06/02/17 21:00 08/03/17 12:15 06/08/17 07:24 1 APPLN Fluticasone Propionate (Flonase Nasal [place]) 2 sprays DAILY MARTY 06/03/17 09:00 07/03/17 08:59 06/08/17 09:20 2 SPRAYS Gabapentin (Neurontin Cap) 300 mg TID PO 06/02/17 21:00 07/02/17 20:59 06/08/17 12:57 300 MG Magnesium Oxide (Mag-Ox Tab) 400 mg DAILY PO 06/03/17 09:00 06/04/17 10:24 DC 06/04/17 07:35 400 MG Montelukast Sodium (Singulair Tab) 10 mg HS PO 06/02/17 21:00 07/02/17 20:59 06/07/17 21:24 10 MG Pantoprazole Sodium (Protonix Tab) 40 mg DAILY PO 06/03/17 09:00 07/03/17 08:59 06/08/17 07:25 40 MG Pramipexole Dihydrochloride (miraPEX TAB) 1 mg BID PO 06/02/17 21:00 07/02/17 20:59 06/08/17 07:26 1 MG Carvedilol (Coreg Tab) 6.25 mg BID PO 06/02/17 21:00 07/02/17 20:59 06/08/17 07:27 6.25 MG Ceftriaxone Sodium 2000 mg/ Dextrose 70 ml @ 140 mls/hr Q24H IV 06/02/17 14:30 06/07/17 17:21 DC 06/07/17 13:55 140 MLS/HR Ipratropium [place] (Atrovent 0.02% 0.5MG/2.5ML Neb) 0.5 mg Q6R INH 06/02/17 21:00 07/02/17 20:59 06/08/17 07:14 0.5 MG Levalbuterol (Xopenex 1.25MG/ 0.5ML Neb) 1.25 mg Q6R INH 06/02/17 21:00 07/02/17 20:59 06/08/17 07:14 1.25 MG Oxycodone/ Acetaminophen (Percocet 5-325mg Tab) 1 tab Q6 PRN PO 06/02/17 20:00 06/07/17 11:46 DC 06/05/17 00:43 1 TAB Lidocaine (Lidoderm Patch 5%) 1 patch QAM TD 06/04/17 09:00 07/04/17 08:59 06/08/17 07:31 1 PATCH Miscellaneous (Remove Lidoderm Patch) 1 ea DAILY@21 N/A 06/03/17 21:00 07/03/17 20:59 06/07/17 21:22 1 EA Furosemide (Lasix Tab) 20 mg QAM PO 06/04/17 09:00 07/04/17 08:59 06/08/17 07:25 20 MG Furosemide (Lasix Tab) 20 mg 1530 ONCE PO 06/03/17 15:30 06/03/17 15:31 DC 06/03/17 16:52 20 MG Benzonatate (Tessalon Perles Cap) 100 mg TID PO 06/03/17 21:00 07/03/17 20:59 06/08/17 12:57 100 MG Potassium Chloride (Klor-Con Tab) 20 meq 0915 ONCE PO 06/04/17 09:15 06/04/17 09:16 DC 06/04/17 09:53 20 MEQ Tramadol HCl (Ultram Tab) 50 mg NOW STAT PO 06/05/17 11:09 06/05/17 11:10 DC 06/05/17 11:33 50 MG Prednisone (PredniSONE TAB) 60 mg NOW STAT PO 06/05/17 14:28 06/05/17 14:31 DC 06/05/17 15:30 60 MG Erythromycin (Erythromycin Oph Oint) 1 appln TID OP 06/05/17 21:00 06/15/17 20:59 06/08/17 13:03 1 APPLN Prednisone (PredniSONE TAB) 60 mg NOW STAT PO 06/06/17 15:05 06/06/17 15:06 DC 06/06/17 15:16 60 MG Prednisone (PredniSONE TAB) 50 mg TODAY@1500 PO 06/07/17 15:00 06/07/17 18:00 DC 06/07/17 16:42 50 MG Acetaminophen (Tylenol Tab) 1,000 mg Q8 PO 06/07/17 14:00 07/07/17 13:59 06/08/17 12:58 1,000 MG Prednisone (PredniSONE TAB) 50 mg NOW ONCE PO 06/08/17 08:45 06/08/17 08:46 DC 06/08/17 09:20 50 MG (Zahraa Lira CRNP) Objective Vital Signs Date Time Temp Pulse Resp B/P (MAP) Pulse Ox O2 Delivery O2 Flow Rate FiO2 06/08/17 12:34 36.8 77 18 155/75 (101) 95 06/08/17 12:00 Room Air 06/08/17 08:29 36.8 81 18 159/70 (99) 97 06/08/17 08:00 Room Air 06/08/17 07:14 76 16 97 Nasal Cannula 2.0 06/08/17 05:38 76 16 90 Room Air 06/08/17 04:17 36.6 83 18 130/66 (87) 94 Nasal Cannula 2.0 06/08/17 04:00 Nasal Cannula 2.0 06/07/17 23:59 Nasal Cannula 2.0 06/07/17 23:20 36.9 87 17 153/79 (103) 95 Nasal Cannula 2.0 06/07/17 20:46 36.8 86 18 141/78 (99) 95 Room Air 06/07/17 20:00 95 Nasal Cannula 2.0 06/07/17 19:19 88 16 95 Nasal Cannula 2.0 06/07/17 16:37 36.6 87 22 105/76 (86) 94 Nasal Cannula 2.0 06/07/17 16:00 94 Nasal Cannula 2.0 06/07/17 14:17 85 16 87 Room Air (Zahraa Lira CRNP) Physical Exam Notes: General: no distress Eyes: normal inspection, PERLL Respiratory: chest non tender, clear to auscultation, normal breath sounds, no respiratory distress, no accessory muscle use Cardiac: regular rate and rhythm, no rub or gallop, no murmur, no edema, no jvd GI/: active bowel sounds, no abd pain or tenderness, soft, non distended Extremities: normal range of motion, normal strength, non tender Neuro/Psych: alert and oriented x 3, normal mood and affect Skin: normal color, dry, maculopapular rash right lower leg and right arm (Zahraa Lira, NAYA) Laboratory Results Last 24 Hours Test 06/08/17 06:15 White Blood Count 7.27 K/uL Red Blood Count 3.41 M/uL Hemoglobin 9.8 g/dL Hematocrit 31.1 % Mean Corpuscular Volume 91.2 fL Mean Corpuscular Hemoglobin 28.7 pg Mean Corpuscular Hemoglobin Concent 31.5 g/dl RDW Standard Deviation 51.0 fL RDW Coefficient of Variation 15.3 % Platelet Count 173 K/uL Mean Platelet Volume 11.4 fL Sodium Level 138 mmol/L Potassium Level 4.4 mmol/L Chloride Level 102 mmol/L Carbon Dioxide Level 32 mmol/L Anion Gap 4.0 mmol/L Blood Urea Nitrogen 45 mg/dl Creatinine 1.51 mg/dl Est Creatinine Clear Calc Drug Dose 30.0 ml/min Estimated GFR () 35.6 Estimated GFR (Non- 30.8 BUN/Creatinine Ratio 29.9 Random Glucose 120 mg/dl Calcium Level 9.0 mg/dl (Zahraa Lira CRNP) Assessment and Plan 87 year old female past medical history of chronic kidney disease stage III, lower back pain/spinal stenosis, neuropathy, myalgia and obesity presented to the ED with right lower extremity cellulitis, orthopnea, shortness of breath and significant weight gain. Acute on Chronic Diastolic CHF: - acute exacerbation resolved - Lasix 20 mg daily - and continue to monitor kidney function - Diuresed for a negative balance of a totalt of approx. 7 liters - Updated echo - EF 60-65%, grade 1 diastolic dysfunction Recent acute bronchitis - treated for bronchitis as outpatient - continue Xopenex and Atrovent nebs, Advair 1 puff BID PRN, and Singulair 10 mg HS - continue nighttime 2l nc prn Papular rash lower right leg and right arm: - stopped Ceftriaxone 2 g IV daily - does not appear infectious - taper steroids - Ketoconazole cream BID - rash improving may have been due to ceftriaxone given PCN, cephalosporin sensitivities Intractable back pain likely from spinal stenosis - chronic - d/c'd oxycodone due to lethargy yesterday after administration - acetaminophen 1 g tid - continue gabapentin - PT recommends inpatient rehab. - consult ortho CKD Stage III - Creat improving - Nephrology has signed off at this point given that patient has returned to baseline HTN: - Coreg 6.25 mg BID PMR: STABLE DVT Prophylaxis: Heparin 5000 units SC Q8H Code Status: FULL RESUSCITATION Dispo - [place] tomorrow, transfer to med/surg (Zahraa Lira, NAYA) Reviewed: Pt Seen/Exam by Me (Susan Fraga MD) History [employer] Supervision Note: I interviewed and examined the patient. Discussed with NAYA Lira and agree with findings and plan as documented in the note. Any exceptions or clarifications are listed here: Rash is much improved today on arms and legs. Breathing feels fine, with occasional cough. Her biggest complaint still is significant lower back pain with severe pain radiating down her RLE into the foot. She reports chronic urinary incontinence with coughing/stress, but has noticed the last few days she has been having a small amount of stool come out every time she goes to urinate. She thinks that she is not in control of her bowels but has not had any incontinence to stool. She denies numbness/tingling in the lower extremities. She is able to ambulate with a walker but feels "stiff" in the legs. Asking for something else for at nighttime for pain-discussed increasing her gabapentin dose and she is agreeable. She says the prednisone has been helping. Vitals reviewed, telemetry reviewed which shows sinus rhythm, no arrhythmias Lying in bed, AAOx3 RRR, no murmurs rubs or gallops Lungs clear to auscultation bilaterally Abdomen positive bowel sounds soft nontender nondistended Extremities-no edema Skin with much improved erythematous maculopapular rash on anterior tibia right greater than left, as well as proximal upper extremities Neuro: strength 4/5 throughout RLE, 5/5 LLE, DTRs 1+ in patellar and Achilles bilat, sensation intact in LEs bilat to lt touch 87-year-old female here with worsening shortness of breath, right lower extremity pruritic rash and suspected cellulitis, abnormal weight gain and likely acute on chronic diastolic CHF. She also has acute on chronic lower back pain with radiculopathy R>L. -No evidence of cellulitis at this time, has received 6 days of IV ceftriaxone- discontinue at this time espcially in light of possible allergic reaction- allergic dermatitis -added Ceftriaxone to allergies -Continue to taper down the prednisone that was started for her rash, but is also helping with her radiculopathy -Stable on by mouth Lasix and diuresing well -Consult orthopedic spine for evaluation of her lower back pain with radiculopathy--> MRI Lumbar spine with neuroforaminal narrowing, and Cauda equina impingement at L3-4--> has fairly good strength, with vague c/o possible bowel symptoms but no bladder symptoms, reflexes intact, does not have true Cauda Equina Syndrome. Ortho consulted yesterday but turns out Dr. Mathias [place] being listed as being on the call list. I discussed the case this evening with Dr. House who will see the pt in the AM -increase gabapentin to 300mg/300mg/600mg -Will need placement tomorrow Documented By: Susan Fraga (Susan Fraga MD)
--- NOTE | 2017-06-08 14:46 | DIAGNOSTIC IMAGING REPORT ---
LUMBAR SPINE W/O CONTRAST CLINICAL HISTORY: 87 years-old Female presenting with acute lumbar radiculopathy, spinal stenosis, difficulty ambulating for 2 to 3 days. TECHNIQUE: Multisequence, multiplanar MR imaging of the lumbar spine was performed without the use of intravenous contrast. IV contrast: None. COMPARISON: None. FINDINGS: Localizer images: Right renal cyst noted. Diverticulosis. Top normal spleen size. Dextrocurvature of the lumbar spine. Straightening of normal lumbar lordosis. 4 mm of grade 1 anterolisthesis of L1 on L2, 2 to 3 mm of grade 1 anterolisthesis of L2 on L3, and 7 mm of anterolisthesis of L5 on S1. This is likely degenerative in etiology. Vertebral bodies maintain normal height. Bony edema noted at the endplates of L3-4 eccentrically on the left likely related to scoliotic curvature of the spine. Diffuse disc desiccation in the lumbar spine. Multilevel degenerative changes further detailed below: L1-2: Disc bulge and ligamentum flavum hypertrophy. Mild right neural foraminal narrowing. Effacement of the anterior thecal sac greatest in the right lateral recess. No contouring of the spinal cord. L2-3: Disc bulge, ligamentum flavum thickening, facet arthropathy, and anterolisthesis result in mild bilateral neural foraminal narrowing and circumferential effacement of the thecal sac. At least some CSF signal is preserved. L3-4: Disc bulge, ligamentum flavum thickening, and facet hypertrophy result in moderate right and severe left neural foraminal narrowing. In combination with prominent epidural fat, there is circumferential effacement of the thecal sac without demonstrable residual CSF signal intensity. L4-5: Disc bulge, ligamentum flavum thickening, and facet hypertrophy result in moderate bilateral neural foraminal narrowing. Mild circumferential narrowing of the thecal sac. L5-S1: Anterolisthesis with ligamentum flavum thickening and facet hypertrophy results in mild right neural foraminal narrowing. No significant spinal canal narrowing. Motion artifact degrades image quality on axial imaging limiting evaluation of potential mass effect on the exiting nerve roots. The spinal cord in this low at the superior endplate of L3. Mild paraspinal edema noted at the level of L3-4. No epidural fluid collection. IMPRESSION: 1. Low termination of the spinal cord at the level of the superior endplate of L3 suggests tethered cord. 2. Circumferential effacement of the thecal sac without demonstrable residual CSF signal intensity at the level of L3-4 concerning for cauda equina impingement. Correlate clinically. 3. Multilevel degenerative changes result in varying degrees of spinal stenosis and neural foraminal narrowing as detailed above. Motion artifact on axial imaging degrades evaluation for potential mass effect on the exiting nerve roots. Neural foraminal narrowing is most severe at L3-4 and L4-5 as detailed above. 4. Bony edema and minimal adjacent paraspinal edema eccentrically on the left at the level of L3-4 is felt to most likely be due to degenerative change and scoliosis rather than discitis osteomyelitis. Correlate for infectious symptoms. The report will be called/faxed according to standard departmental protocol. Electronically signed by: Gary Forbes M.D. 06/08/2017 2:44 PM Dictated Date/Time: 06/08/2017 2:34 PM
[2017-06-08] MEDS ORDERED: GABAPENTIN 600 MG TAB PO SCH (21:00)
[2017-06-08] MEDS: MONTELUKAST SOD 10 MG TAB PO SCH (21:23)
[2017-06-09 00:11] VITALS: BP 155/80; PULSE 79; TEMP 36.5; O2SAT 95
[2017-06-09 02:04] VITALS: PULSE 72; O2SAT 92
[2017-06-09] MEDS: IPRATROPIUM BROMIDE NEB SOLN 0.02% 2.5 ML VIAL INH SCH ×2 (02:04→07:00)
[2017-06-09] MEDS: LEVALBUTEROL 1.25MG/0.5ML NEB INH SCH ×2 (02:04→07:00)
[2017-06-09] MEDS: ACETAMINOPHEN 500 MG TAB PO SCH ×2 (05:16→12:32)
[2017-06-09] MEDS: HEPARIN SOD 5000 UNIT/0.5 ML CARP SQ SCH (05:24)
[2017-06-09 06:22] LABS: CREATININE 1.62 mg/dl (0.60-1.20); POTASSIUM 3.8 mmol/L (3.5-5.1)
[2017-06-09 07:00] VITALS: PULSE 75; O2SAT 97
[2017-06-09 07:21] VITALS: BP 159/77; PULSE 95; TEMP 36.5; O2SAT 97
[2017-06-09] MEDS: LACTOBACILLUS ACIDOPHILUS 1 GM PACK PO SCH ×2 (07:59→12:33)
[2017-06-09] MEDS: GABAPENTIN 300 MG CAP PO SCH ×2 (08:01→12:30)
[2017-06-09] MEDS: BENZONATATE 100MG CAP PO SCH ×2 (08:02→12:31)
[2017-06-09] MEDS: ERYTHROMYCIN OP OINT 5 MG/GM 3.5 GM TUBE OP SCH ×2 (08:02→12:32)
[2017-06-09] MEDS: FUROSEMIDE 20 MG TAB PO SCH (08:02)
[2017-06-09] MEDS: KETOCONAZOLE 2% CR 15 GM TUBE EXT SCH (08:02)
[2017-06-09] MEDS: PRAMIPEXOLE DIHYDROCHLORIDE 0.5 MG TAB PO SCH (08:03)
[2017-06-09] MEDS: PANTOprazole SOD 40 MG TAB PO SCH (08:03)
[2017-06-09] MEDS: CARVEDILOL 6.25 MG TAB PO SCH (08:03)
[2017-06-09] MEDS: LIDODERM (LIDOCAINE) PATCH 5% TD SCH (08:04)
[2017-06-09] MEDS: FLUTICASONE PROPIONATE NA SPR 16 GM BTL NAE SCH (08:15)
--- NOTE | 2017-06-09 08:24 | ORTHOPEDIC CONSULTATION ---
DATE OF CONSULTATION: 06/09/2017 ORTHOPEDIC SPINAL CONSULT CHIEF COMPLAINT: Lower extremity difficulty. Back and buttock pain. HISTORY OF PRESENT ILLNESS: Mrs. Pan is a delightful patient. She is alert, oriented. She is 87. She has had ongoing back and lower extremity difficulties. She presented to the Emergency Room and was admitted June 02 of this year, so approximately 1 week ago. She had at that point in time some hypertension, cellulitis, kidney disease, along with some congestive heart failure with fluid retention of a weight gain of approximately 15 pounds. She also had a DVT a few weeks ago as well and bronchitis. As of today, the morning of the , she is still having back and lower extremity difficulties. She is relatively pain free at rest. She does have pain with motion of the right lower extremity. She states that the left lower extremity is satisfactory. She does have some difficulty when she ambulates secondary to pain. She has had no formal treatment in the past, although has seen physicians in the past as well for this difficulty. I believe she has had some injections such as epidural steroids for alleviation of pain in her past history. PAST MEDICAL HISTORY: Depression, dizziness, hypertension, osteoporosis, cellulitis, recent congestive heart failure, morbid obesity, end-stage kidney disease stage III, spinal stenosis, polymyalgia and some sleep apnea. OBJECTIVE: GENERAL: She is alert, oriented. VITAL SIGNS: Blood pressure stable 149/63, pulse 90, respiration is 26. HEENT: Essentially normal. Speech appropriate. NECK: Supple. LUNGS: She has good breath sounds. CARDIAC: Normal rate rhythm. ABDOMEN: Soft, nontender, no organomegaly. EXTREMITIES: Intact x4. They are fairly normal on inspection. There is no significant swelling, edema and/or cellulitis; all are normal. She can move dorsiflex and plantarflex her foot. We did not get her up this morning to ambulate. Cranial nerves intact. Facial nerves are intact. There is no upper motor neuron issues apparent here this morning. Her MRI was reviewed. She does have some stenosis at 2-3, 3-4 lumbar spine combination of disc herniation, spinal stenosis which is combination of facet joints, ligamentum flavum hypertrophy. There is pressure on the thecal sac roughly at 2-3, 3-4, slightly at 4-5 and she does have a spondylolisthesis L5 on S1; that appears stable. ASSESSMENT: Delightful young lady with a multitude of medical issues improved, stable. She has a spinal issue of stenosis, compression on the associated nerve roots, some degenerative arthritis as well. She has no bowel or bladder incontinence. No gross weakness and pain is relatively controlled although not completely controlled. DISPOSITION: This will be managed nonsurgically for as long as possible. Her risk profile for surgical intervention is quite significant for a DVT, pulmonary embolus, infection and even a resolve. It would take a significant amount of rehabilitation. On the other hand, if she developed any bowel and bladder issues we sometimes get forced into a surgical intervention for better or for worse. At this time, I wholeheartedly support a transfer to a rehab facility. She should use a walker, appropriate medications, not over sedation. I should see her back in the office in approximately 14 days. Our office number is [phone]. That number can be called for followup appointment. A walker is appropriate for support, maybe even a scooter for support at rehabilitation. Once again good followup examination.
[2017-06-09] MEDS ORDERED: DULOXETINE HCL 20 MG CAP PO ONE (11:15)
--- NOTE | 2017-06-09 11:26 | Discharge Instructions ---
Discharge Instructions Date of Service Jun 09, 2017. Admission Reason for Admission: CHF Discharge Discharge Diagnosis / Problem: CHF exacerbation, back pain, rash Discharge Goals Goal(s): Improve function, Improve disease control Activity Recommendations Activity Level: Up Ad Swetha (minimum assist with walker) Therapies: Physical Therapy, Occupational Therapy Shower/Bathe: no limitations . Additional Information Patient informed of condition: Yes Advance Directives: No DNR: No Level of Care: Acute Rehab Communicable Disease: No Prognosis: Stable Oxygen at (LPM): 2L NC prn while sleeping Cheung Catheter: No Instructions / Follow-Up Instructions / Follow-Up Patient was evaluated by spine ortho for her chronic back pain and it was decided that surgery was not a good option and would try to manage her medically. Her gabapentin was increased yesterday and could be titrated up, she also was restarted on duloxetine which she was not taking inpatient but had been taking outpatient. She does NOT do well with opioids and they should be avoided as they cause her to be drowsy and confused. It would also be helpful for an appointment with pain management to be arranged. She is on a prednisone taper for her back pain and rash which is as follows Prednisone 40 mg x2 days 30 mg x 3 days 20 mg x 3 days 10 mg x 3 days Current Hospital Diet Patient's current hospital diet: Low Sodium Diet (2gm Na), AHA Diet (Heart Healthy) Discharge Diet Recommended Diet: AHA Diet (Heart Healthy), Low Sodium Diet (2gm Na) Procedures Procedures Performed: Lumbar Spine MRI Lower Extremity Ultrasound Chest Xray ECHO Pending Studies Studies pending at discharge: no Physician Orders On Transfer Special Precautions: Fall risk Dressing Changes: N/A IV Therapy: N/A Vital Signs: Routine Weigh: Daily POLST Discussion: Not Applicable Laboratory Results Last 24 Hours Test 06/09/17 05:12 Sodium Level 139 mmol/L Potassium Level 3.8 mmol/L Chloride Level 103 mmol/L Carbon Dioxide Level 31 mmol/L Anion Gap 5.0 mmol/L Blood Urea Nitrogen 45 mg/dl Creatinine 1.62 mg/dl Est Creatinine Clear Calc Drug Dose 28.0 ml/min Estimated GFR () 32.7 Estimated GFR (Non- 28.2 BUN/Creatinine Ratio 27.6 Random Glucose 97 mg/dl Calcium Level 9.0 mg/dl Hemoglobin A1c Test 06/03/17 06:01 Range/Units Estimated Average Glucose 114 mg/dl Hemoglobin A1c 5.6 4.5-5.6 % Lipid Panel Test 06/03/17 06:01 Range/Units Triglycerides Level 150 0-150 mg/dl Cholesterol Level 141 0-200 mg/dl HDL Cholesterol 44 mg/dl Cholesterol/HDL Ratio 3.2 LDL Cholesterol, Calculated 67 mg/dl Medical Emergencies . Who to Call and When: Medical Emergencies: If at any time you feel your situation is an emergency, please call 911 immediately. . Non-Emergent Contact Non-Emergency issues call your: Primary Care Provider Call Non-Emergent contact if: you have any medication questions . Past History Medical & Surgical History: (1) Diastolic CHF (2) History of - hypertension (3) Neuropathy (4) Back pain (5) CKD (chronic kidney disease) (6) Osteoporosis (7) Vertigo (8) Depression (9) Breast cancer . "Provider Documentation" section prepared by Zahraa Lira. . Core Measure Problem Core Measures: None
[2017-06-09] MEDS ORDERED: ACET-24 PO (11:32)
[2017-06-09] MEDS ORDERED: NRN600 PO (11:32)
[2017-06-09] MEDS ORDERED: NRN300 PO (11:32)
[2017-06-09] MEDS ORDERED: CRG625 PO (11:32)
[2017-06-09] MEDS ORDERED: XPNINS1255 INH (12:13)
[2017-06-09] MEDS ORDERED: BENZ100C7 PO (12:13)
[2017-06-09] MEDS ORDERED: LCTXP PO (12:13)
[2017-06-09] MEDS ORDERED: LDDP5 TD (12:13)
[2017-06-09] MEDS ORDERED: ATRINS INH (12:13)
[2017-06-09] MEDS ORDERED: NZRCR EXT (12:13)
[2017-06-09] MEDS ORDERED: SALI0.6510 (12:13)
[2017-06-09] MEDS ORDERED: PRED10TA PO (12:18)
[2017-06-09 12:50] VITALS: BP 159/77; PULSE 95; TEMP 36.5; O2SAT 97
--- NOTE | 2017-06-09 15:55 | Discharge Summary ---
Discharge Summary Date of Service Jun 09, 2017. Discharge Summary Admission Date: Jun 02, 2017 at 12:25 Discharge Date: Jun 09, 2017 Discharge Disposition: correction facility Principal Diagnosis: acute on chronic diastolic CHF Problems/Secondary Diagnoses: Lower back pain with Lumbar radiculopathy due to spinal stenosis HTN Obesity PMR CKD Stage III Asthma Right lower extremity cellulitis Allergic dermatitis Resolving acute bronchitis Immunizations: Have You Had Influenza Vaccine: Yes History of Tetanus Vaccine?: Yes History of Pneumococcal: Yes History of Hepatitis B Vaccine: No Procedures: LUMBAR SPINE W/O CONTRAST CLINICAL HISTORY: 87 years-old Female presenting with acute lumbar radiculopathy, spinal stenosis, difficulty ambulating for 2 to 3 days. TECHNIQUE: Multisequence, multiplanar MR imaging of the lumbar spine was performed without the use of intravenous contrast. IV contrast: None. COMPARISON: None. FINDINGS: Localizer images: Right renal cyst noted. Diverticulosis. Top normal spleen size. Dextrocurvature of the lumbar spine. Straightening of normal lumbar lordosis. 4 mm of grade 1 anterolisthesis of L1 on L2, 2 to 3 mm of grade 1 anterolisthesis of L2 on L3, and 7 mm of anterolisthesis of L5 on S1. This is likely degenerative in etiology. Vertebral bodies maintain normal height. Bony edema noted at the endplates of L3-4 eccentrically on the left likely related to scoliotic curvature of the spine. Diffuse disc desiccation in the lumbar spine. Multilevel degenerative changes further detailed below: L1-2: Disc bulge and ligamentum flavum hypertrophy. Mild right neural foraminal narrowing. Effacement of the anterior thecal sac greatest in the right lateral recess. No contouring of the spinal cord. L2-3: Disc bulge, ligamentum flavum thickening, facet arthropathy, and anterolisthesis result in mild bilateral neural foraminal narrowing and circumferential effacement of the thecal sac. At least some CSF signal is preserved. L3-4: Disc bulge, ligamentum flavum thickening, and facet hypertrophy result in moderate right and severe left neural foraminal narrowing. In combination with prominent epidural fat, there is circumferential effacement of the thecal sac without demonstrable residual CSF signal intensity. L4-5: Disc bulge, ligamentum flavum thickening, and facet hypertrophy result in moderate bilateral neural foraminal narrowing. Mild circumferential narrowing of the thecal sac. L5-S1: Anterolisthesis with ligamentum flavum thickening and facet hypertrophy results in mild right neural foraminal narrowing. No significant spinal canal narrowing. Motion artifact degrades image quality on axial imaging limiting evaluation of potential mass effect on the exiting nerve roots. The spinal cord in this low at the superior endplate of L3. Mild paraspinal edema noted at the level of L3-4. No epidural fluid collection. IMPRESSION: 1. Low termination of the spinal cord at the level of the superior endplate of L3 suggests tethered cord. 2. Circumferential effacement of the thecal sac without demonstrable residual CSF signal intensity at the level of L3-4 concerning for cauda equina impingement. Correlate clinically. 3. Multilevel degenerative changes result in varying degrees of spinal stenosis and neural foraminal narrowing as detailed above. Motion artifact on axial imaging degrades evaluation for potential mass effect on the exiting nerve roots. Neural foraminal narrowing is most severe at L3-4 and L4-5 as detailed above. 4. Bony edema and minimal adjacent paraspinal edema eccentrically on the left at the level of L3-4 is felt to most likely be due to degenerative change and scoliosis rather than discitis osteomyelitis. Correlate for infectious symptoms. The report will be called/faxed according to standard departmental protocol. RIGHT LOWER EXTREMITY VENOUS DOPPLER HISTORY: Right leg swelling COMPARISON STUDY: Venous Doppler 11/04/2016. FINDINGS: There is normal compressibility, flow, and augmentation within the right lower extremity deep venous system. IMPRESSION: No DVT within the right lower extremity Consultations: Dr. House for ortho spine Dr. Galan for cardiology Misha Brito and Grace for nephrology Medication Reconciliation New Medications: Prednisone (Prednisone) 10 Mg Tab 40 MG PO DAILY for 11 Days x2 days, then 30 mg daily x 3 days, then 20 mg daily x 3 days, then 10 mg daily x 3 days Acetaminophen (Sb Non-Aspirin Extra Stre) 500 Mg Tab 1000 MG PO Q8 for 30 Days, #180 TAB Benzonatate (Benzonatate) 100 Mg Cap 100 MG PO TID for 7 Days, #21 CAP Carvedilol (Carvedilol) 6.25 Mg Tab 6.25 MG PO BID for 30 Days, #60 TAB Gabapentin (Gabapentin) 300 Mg Cap 300 MG PO BID@0800,1400 for 30 Days, #60 CAP Gabapentin (Gabapentin) 600 Mg Tab 600 MG PO HS for 30 Days, #30 TAB Ipratropium [place] (Ipratropium [place]) 0.5 Mg/2.5 Ml Nebu 0.5 MG INH Q6R PRN for SOB/Wheezing for 30 Days Ketoconazole (Ketoconazole) 45 Appln/15 Gm Cr 1 APPLN EXT BID for 30 Days to affected skin folds Lactobacillus Acidophilus (Lactinex Granules) 1 Gm Pack 1 GM PO TIDM for 30 Days Levalbuterol (Levalbuterol) 1.25 Mg/0.5 Ml Nebu 1.25 MG INH Q6R PRN for SOB/Wheezing for 30 Days Lidocaine (Lidocaine) 1 Patch Tdsy 1 PATCH TD QAM for 30 Days to lower back and affected areas of pain Saline (Norman Nasal [place]) 0.65 % Spr 2 SPRAYS NA Q6H PRN for DRYNESS for 30 Days Continued Medications: Duloxetine HCl (Duloxetine HCl) 40 Mg Cap 40 MG PO DAILY Esomeprazole Magnesium (Nexium) 40 Mg Cap 40 MG PO DAILY, CAP TAKE ONE CAPSULE 30 MINUTES PRIOR TO BREAKFAST. Fluticasone Prop/Salmeterol (Advair Diskus 250-50 Mcg/Dose) 14 Puff/1 Inhaler Aerp 1 PUFF INH BID PRN for SOB/Wheezing Fluticasone Propionate (Nasal) (Flonase Allergy Relief) 50 Mcg/Act Spr 2 SPRAYS MARTY DAILY Furosemide (Lasix) 20 Mg Tab 1 TAB PO DAILY for 90 Days, #90 TAB 1 Refill Lifitegrast (Xiidra) 5 % Mack 1 DROP OPB BID Magnesium Oxide (Mag-Ox) 400 Mg Tab 400 MG PO, TAB Meclizine HCl (Meclizine HCl) 25 Mg Tab 2 MG PO TID PRN for Dizziness or Vertigo Montelukast Sod (Montelukast Sodium) 10 Mg Tab 10 MG PO DAILY Pramipexole Dihydrochloride (Pramipexole Dihydrochlori) 1 Mg Tab 1 MG PO BID Verapamil Hcl (Verapamil Hcl Er) 240 Mg Cap 240 MG PO DAILY Discontinued Medications: Acetaminophen (Tylenol Arthritis Ext Rel) 650 Mg Cplt 650 MG PO QID, CAP Diclofenac Epolamine (Flector) 1 Patch Tdsy 1 PATCH TOP DAILY Gabapentin (Neurontin) 300 Mg Cap 300 MG PO TID, CAP Metoprolol Succ (Toprol Xl) (Toprol-Xl) 50 Mg Tabcr 1 TAB PO DAILY for Blood Pressure for 30 Days, #30 TAB 5 Refills Discharge Exam ROS Constitutional: no chills, aches, sweats or fever Respiratory: no sob,cough, sputum, or wheezing Cardiac: no chest pain, palpitations, edema, orthopnea or lightheadedness GI: no abdominal pain, nausea, vomiting, diarrhea or constipation : no dysuria or hesitancy Extremities: lumbar back pain with radiculopathy down right buttock and wraps around to thigh Skin: rash right arm and right lower leg improving PE General: obviously in pain in lower back, right leg Eyes: normal inspection, PERLL Respiratory: chest non tender, clear to auscultation, normal breath sounds, no respiratory distress, no accessory muscle use Cardiac: regular rate and rhythm, no rub or gallop, no murmur, no edema, no jvd GI/: active bowel sounds, no abd pain or tenderness, soft, non distended Extremities: normal range of motion, normal strength, non tender Neuro/Psych: alert and oriented x 3, normal mood and affect Skin: maculopapular rash on leg and arm Hospital Course Ms. Pan is a 78 year old female with a past medical history of hypertension, asthma, obesity, spinal stenosis, neuropathy, pmr, Raynaud's phenomena and chronic kidney disease stage III. She presented to the ED with a one-week history of worsening shortness of breath , rest and exertional, and orthopnea. She had gained 15 pounds within the previous week and had also been treated for bronchitis with doxycycline before that. She was referred to the ED by her PT who was concerned for cellulitis due to redness and swelling in her lower extremity. Ultrasound lower extremity was done then and showed no DVT. Acute on Chronic Diastolic CHF: - acute exacerbation resolved - Lasix 20 mg daily given - Diuresed for a negative balance of a total of approx. 7 liters - Updated echo - EF 60-65%, grade 1 diastolic dysfunction - continued to require 2L NC at night - may continue to use and titrate down during rehab stay Recent acute bronchitis - treated for bronchitis as outpatient - given Xopenex and Atrovent nebs, Advair 1 puff BID PRN, and Singulair 10 mg HS , tessalon pearls Papular rash lower right leg and right arm: - stopped Ceftriaxone 2 g IV daily - initial concern for cellulitis appears less infectious than a result of arterial insufficiency, rash was likely reaction to Ceftriaxone - slow steroid taper for outpatient - Ketoconazole cream BID - discontinued for outpatient Intractable back pain likely from spinal stenosis - chronic - MRI showed severe spinal stenosis 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 - d/c'd oxycodone due to lethargy and confusion after administration - acetaminophen 1 g tid - increased gabapentin from 300 mg tid to 300 mg bid and 600 at bedtime - continue duloxetine, may need to be increased to 60 mg - PT recommends inpatient rehab - to [place] - consulted ortho - no surgery at this time, recommends medical management CKD Stage III - Nephrology consulted - patient returned to baseline creat HTN: - stable - Coreg 6.25 mg BID History of cluster headache - continue verapamil PMR: STABLE Total Time Spent: Greater than 30 minutes This includes examination of the patient, discharge planning, medication reconciliation, and communication with other providers. Discharge Instructions Please refer to the electronic Patient Visit Report (Discharge Instructions) for additional information. Follow-Up Follow up with pain management for back pain Additional Copies To [place] Reviewed: Pt Seen/Exam by Me History NAYA Supervision Note: I interviewed and examined the patient. Discussed with NAYA Lira and agree with findings and plan as documented in the note. Any exceptions or clarifications are listed here: Patient reports not much improvement yet in her radicular pain with the increased his gabapentin last night, but would not expect this yet. Rash continues to improve. She is ready for discharge. Denies shortness of breath. Vitals reviewed NAD, AAOx3 RRR, no murmurs rubs or gallops Lungs clear to auscultation bilaterally Abdomen positive bowel sounds soft nontender nondistended Extremities-no edema Skin with much improved erythematous maculopapular rash on anterior tibia right greater than left, as well as proximal upper extremities Neuro: strength 4/5 throughout RLE, 5/5 LLE, DTRs 1+ in patellar and Achilles bilat, sensation intact in LEs bilat to lt touch, gait is slow but steady assisted by Walker 87-year-old female here with worsening shortness of breath, right lower extremity pruritic rash and suspected cellulitis, abnormal weight gain and likely acute on chronic diastolic CHF. She also has acute on chronic lower back pain with radiculopathy R>L. Cellulitis resolved, received 6 days of IV ceftriaxone- especially in light of possible allergic reaction-allergic dermatitis -added Ceftriaxone to allergies -Continue to taper down the prednisone that was started for her rash, but is also helping with her radiculopathy -Stable on by mouth Lasix and diuresing well -Consult orthopedic spine for evaluation of her lower back pain with radiculopathy--> MRI Lumbar spine with neuroforaminal narrowing, and Cauda equina impingement at L3-4--> has fairly good strength, with vague c/o possible bowel symptoms but no bladder symptoms, reflexes intact, does not have true Cauda Equina Syndrome. Ortho consulted and agrees with medical management only at this time and physical therapy -Continue increased dose of gabapentin to 300mg/300mg/600mg -Stable for discharge to rehabilitation today Documented By: Susan Fraga
[2017-06-10] MEDS ORDERED: DULOXETINE HCL 20 MG CAP PO SCH (09:00)
== END 2017-06-09 13:35 | DRG 292 ==
LOC: C.EDB 09:19 → C.2E 12:25 → ENRESERV 12:56 → C.MS2W 06-08 14:18
PROVIDERS: ADMIT Internal Medicine; ATTEND Family Medicine
DX: I50.33 Acute on chronic diastolic (congestive) heart failure (principal); L03.115 Cellulitis of right lower limb; N17.9 Acute kidney failure, unspecified; I13.0 Hypertensive heart and chronic kidney disease with heart failure and stage 1 through stage 4 chronic kidney disease, or unspecified chronic kidney disease; J20.9 Acute bronchitis, unspecified; L27.0 Generalized skin eruption due to drugs and medicaments taken internally; T36.1X5A Adverse effect of cephalosporins and other beta-lactam antibiotics, initial encounter; Y92.230 Patient room in hospital as the place of occurrence of the external cause; N18.3 Chronic kidney disease, stage 3 (moderate); J45.909 Unspecified asthma, uncomplicated; K21.9 Gastro-esophageal reflux disease without esophagitis; D64.9 Anemia, unspecified; G62.9 Polyneuropathy, unspecified; M35.3 Polymyalgia rheumatica; I89.0 Lymphedema, not elsewhere classified; B35.3 Tinea pedis; I87.2 Venous insufficiency (chronic) (peripheral); G44.009 Cluster headache syndrome, unspecified, not intractable; G89.29 Other chronic pain; M48.061 Spinal stenosis, lumbar region without neurogenic claudication; M54.16 Radiculopathy, lumbar region; E66.01 Morbid (severe) obesity due to excess calories; G47.33 Obstructive sleep apnea (adult) (pediatric); Z68.38 Body mass index [BMI] 38.0-38.9, adult; Z79.1 Long term (current) use of non-steroidal anti-inflammatories (NSAID); Z79.899 Other long term (current) drug therapy

== ENCOUNTER → 2017-07-12 | Outpatient (CLI) | payer OTHER ==
[~2017-07-12] MED LIST changes: +ACET-24 PO; -ACET1TAB84 PO; +ATRINS INH; +BENZ100C7 PO; +CRG625 PO; -DOXY100T17 PEG; -FLCP TOP; +FURO-85 PO; +LCTXP PO; +LDDP5 TD; -NRN/300 PO; +NRN300 PO; +NRN600 PO; +NZRCR EXT; +SALI0.6510; -VNTHFA/IN INH; +XPNINS1255 INH
[2017-07-12 13:35] LABS: ALBUMIN 3.6 gm/dl (3.4-5.0); BLOOD UREA NITROGEN 31 mg/dl (7-18); CALCIUM 9.4 mg/dl (8.5-10.1); CARBON DIOXIDE 32 mmol/L (21-32); CREATININE 1.66 mg/dl (0.60-1.20); GLUCOSE 95 mg/dl (70-99); SODIUM 137 mmol/L (136-145)
[2017-07-12 13:36] LABS: PHOSPHORUS 2.9 mg/dl (2.5-4.9)
== END | disposition home or self-care (01) ==
LOC: C.LAB1850 11:39
PROVIDERS: ATTEND Internal Medicine Nephrology
DX: N18.4 Chronic kidney disease, stage 4 (severe) (principal)

== ENCOUNTER → 2017-08-02 | Outpatient (CLI) | payer OTHER ==
[~2017-08-02] MED LIST changes: +PRAM1TAB10 PO; -PRAM1TAB6 PO
== END | disposition home or self-care (01) ==
LOC: C.LABSPEC 12:14
PROVIDERS: ATTEND Internal Medicine Nephrology
DX: N18.4 Chronic kidney disease, stage 4 (severe) (principal)

== ENCOUNTER → 2017-08-09 | Outpatient (CLI) | payer OTHER ==
[2017-08-09 12:31] LABS: ALBUMIN 3.7 gm/dl (3.4-5.0); BLOOD UREA NITROGEN 28 mg/dl (7-18); CALCIUM 9.2 mg/dl (8.5-10.1); CARBON DIOXIDE 34 mmol/L (21-32); CREATININE 1.67 mg/dl (0.60-1.20); GLUCOSE 116 mg/dl (70-99); POTASSIUM 4.1 mmol/L (3.5-5.1); SODIUM 135 mmol/L (136-145)
[2017-08-09 12:32] LABS: PHOSPHORUS 3.9 mg/dl (2.5-4.9)
== END | disposition home or self-care (01) ==
LOC: C.LAB1850 09:50
PROVIDERS: ATTEND Internal Medicine Nephrology
DX: I10 Essential (primary) hypertension (principal)

== ENCOUNTER → 2017-08-30 | Outpatient (CLI) | payer OTHER ==
[2017-08-30 13:37] LABS: ALBUMIN 3.7 gm/dl (3.4-5.0); BLOOD UREA NITROGEN 31 mg/dl (7-18); CALCIUM 8.9 mg/dl (8.5-10.1); CARBON DIOXIDE 32 mmol/L (21-32); CREATININE 1.56 mg/dl (0.60-1.20); GLUCOSE 89 mg/dl (70-99); PHOSPHORUS 3.3 mg/dl (2.5-4.9); POTASSIUM 4.4 mmol/L (3.5-5.1); SODIUM 138 mmol/L (136-145)
== END | disposition home or self-care (01) ==
LOC: C.LABBC 11:02
PROVIDERS: ATTEND Internal Medicine Nephrology
DX: N18.4 Chronic kidney disease, stage 4 (severe) (principal)

== ENCOUNTER → 2017-10-21 | Outpatient (CLI) | payer OTHER ==
--- NOTE | 2017-10-24 07:44 | MAMMOGRAPHY REPORT ---
BILATERAL DIGITAL SCREENING MAMMOGRAM TOMOSYNTHESIS WITH CAD: 10/21/2017 CLINICAL HISTORY: Asymptomatic. Personal history of breast cancer. TECHNIQUE: Breast tomosynthesis in addition to standard 2D mammography was performed. Current study was also evaluated with a Computer Aided Detection (CAD) system. COMPARISON: Comparison is made to exams dated: 10/19/2016 mammogram, 04/12/2016 mammogram, 10/08/2015 m ammogram, 06/14/2013 mammogram, 06/26/2014 mammogram, and 07/05/2014 mammogram - [facility] nter. BREAST COMPOSITION: The tissue of both breasts is almost entirely fatty. FINDINGS: No suspicious masses, calcifications, or areas of architectural distortion are noted in ei ther breast. There has been no significant interval change compared to prior exams. There are stable postsurgical changes in the right breast from prior lumpectomy. Linear scar markers denote scars on the right breast. A biopsy clip is again noted within the left breast. Bilateral benign-appearing calcifications are not significantly changed. IMPRESSION: ACR BI-RADS CATEGORY 2: BENIGN There is no mammographic evidence of malignancy. A 1 year screening mammogram is recommended. The pa tient will receive written notification of the results. Approximately 10% of breast cancers are not detected with mammography. A negative mammographic report should not delay biopsy if a clinically suggestive mass is present. Bernice Andino M.D. ah/:10/21/2017 16:17:49 [employer] Associate: Melissa HUI)([place]), [facility] letter sent: Normal 1/2 BI-RADS Code: ACR BI-RADS Category 2: Benign
== END | disposition home or self-care (01) ==
LOC: C.MAMM 09:28
PROVIDERS: ATTEND Internal Medicine Hematology & Oncology
DX: Z12.31 Encounter for screening mammogram for malignant neoplasm of breast (principal); Z85.3 Personal history of malignant neoplasm of breast

== ENCOUNTER → 2018-01-25 | Outpatient (CLI) | payer OTHER ==
[~2018-01-25] MED LIST changes: +DICL1GEL12; +GABA-113 PO; -NRN300 PO
[2018-01-25 10:47] LABS: ALBUMIN 3.8 gm/dl (3.4-5.0); BLOOD UREA NITROGEN 32 mg/dl (7-18); CALCIUM 9.1 mg/dl (8.5-10.1); CARBON DIOXIDE 32 mmol/L (21-32); CREATININE 1.86 mg/dl (0.60-1.20); GLUCOSE 101 mg/dl (70-99); PHOSPHORUS 3.9 mg/dl (2.5-4.9); POTASSIUM 4.1 mmol/L (3.5-5.1); SODIUM 136 mmol/L (136-145)
== END | disposition home or self-care (01) ==
LOC: C.LABBC 08:56
PROVIDERS: ATTEND Internal Medicine Nephrology
DX: N18.4 Chronic kidney disease, stage 4 (severe) (principal)